=== PATIENT | female | born 1935 | race Caucasian/White ===

== ENCOUNTER 2020-02-25 01:38 | Emergency (ER) | payer MEDICARE, OTHER ==
[~2020-02-25] VITALS: Ht 154.9 cm; Wt 65.3 kg
--- OUTSIDE RECORDS SUMMARY | ~2020-02-25 | XMS | Encounter Summary ---
Demographics + + + | Address | [address]. | | | [place] [address] | + + + | Home Phone | | + + + | Preferred Language | Unknown | + + + | Marital Status | | + + + | Hindu Affiliation | Unknown | + + + | Race | White | + + + | Ethnic Group | Not or | + + + Author + + + | Author | [facility] | | | and [place] | + + + | Organization | [facility] | | | and [place] | + + + | Address | Unknown | + + + | Phone | Unavailable | + + + Support + + + + + | Name | Relationship | Address | Phone | + + + + + | Beba Martinez | ECON | NA | | | | | [place] | | + + + + + | Jody Fernandez | ECON | NA | | | | | [place] | | + + + + + Care Team Providers + +------+ + | Care Cost And Sales Record Supervisor Name | Role | Phone | + +------+ + | Koko Orantes MD | PCP | | + +------+ + Reason for Visit + + + | Reason | Comments | + + + | Follow-up | | + + + Encounter Details +--------+---------+ + + + | Date | Type | Department | Care Team | Description | +--------+---------+ + + + | 10/15/ | Office | [facility] | Lul Molina | Bradycardia (Primary | | 2018 | Visit | CARDIOLOGY [address] | MD Marcell[address] | Dx); Essential | | | | [place], | [address] [place] | hypertension; SOB | | | | [place] [address] | [place] [address] | (shortness of | | | | [phone] | [phone] | breath) on exertion | | | | | | | +--------+---------+ + + + Social History + +-------+ +--------+------+ | Tobacco Use | Types | Packs/Day | Years | Date | | | | | Used | | + +-------+ +--------+------+ | Never Smoker | | | | | + +-------+ +--------+------+ + +---+---+---+ | Smokeless Tobacco: | | | | | Never Used | | | | + +---+---+---+ + + +---------+ + | Alcohol Use | Drinks/Week | oz/Week | Comments | + + +---------+ + | Yes | | | 2 glasses wine | | | | | weekly | + + +---------+ + + + + | Sex Assigned at | Date Recorded | | | | + + + | Not on file | | + + + documented as of this encounter Last Filed Vital Signs + + + + + | Vital Sign | Reading | Time Taken | Comments | + + + + + | Blood Pressure | 138/82 | 10/15/2017 12:39 PM | | | | | PDT | | + + + + + | Pulse | 54 | 10/15/2017 12:39 PM | | | | | PDT | | + + + + + | Temperature | - | - | | + + + + + | Respiratory Rate | 16 | 10/15/2017 12:39 PM | | | | | PDT | | + + + + + | Oxygen Saturation | - | - | | + + + + + | Inhaled Oxygen | - | - | | | Concentration | | | | + + + + + | Weight | 68.7 kg (151 lb 7.3 | 10/15/2017 12:39 PM | | | | oz) | PDT | | + + + + + | Height | 157.5 cm (5' 2") | 10/15/2017 12:39 PM | | | | | PDT | | + + + + + | Body Mass Index | 27.7 | 10/15/2017 12:39 PM | | | | | PDT | | + + + + + documented in this encounter Progress Notes Lul Molina MD - 10/15/2017 1:00 PM PDTFormatting of this note might be differe nt from the original. Subjective: CARDIOLOGY OFFICE VISIT Date of Service: 10/15/17 Patient ID: Naomi Fernandez is a 82 y.o. female. PCP: Koko Orantes MD HPI Naomi Fernandez is a 82 y.o. female with a history of dyspnea on exertion and severe hypertens ion who presents for a follow-up visit. She has been doing well without any symptoms of russel st pain or exertional dyspnea and has been compliant with her medications. She believes roni t her blood pressure has been well-controlled. She has had no medical issues recently. She is in need of establishing with a new primary care provider as her current physician is mami alvarez. Her weight has been stable. She remains quite active and goes on one long daily wal k each morning with her dog. Pertinent historical clinical information: Previously she was recovering from the of her daughter from pulmonary complications a t age 51, and had returned from trip to [place] when she went to scatter her ashes. She prev iously had symptoms of feeling fatigued primarily with going upstairs as well as walking uph ill for quite some time, perhaps one year, but she states that he had significantly improved since her blood pressure has normalized. She denies any trouble with walking on level groun d and denies having chest pains per se, nor any orthopnea, PND, or lower extremity edema. MEDICAL, SURGICAL AND PERSONAL HISTORY Past Medical History: Diagnosis Date Bradycardia 04/02/2013 Holter Monitor 02/03/13. Depression 01/20/2013 Glaucoma 01/20/2013 Goiter 01/20/2013 Gout 01/20/2013 Hypertension 01/20/2013 Hypothyroidism 01/20/2013 Renal cyst 01/20/2013 SOB (shortness of breath) on exertion 01/20/2013 Past Surgical History: Procedure Laterality Date APPENDECTOMY CATARACT REMOVAL bilateral CHOLECYSTECTOMY HYSTERECTOMY JOINT REPLACEMENT 2011 right JOINT REPLACEMENT 08/2012 left rhinoplasty TONSILLECTOMY History reviewed. No pertinent family history. 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 amLODIPine (NORVASC) 10 MG tablet Take 1 tablet by mouth Daily. 90 tablet 3 Brinzolamide-Brimonidine (SIMBRINZA) 1-0.2 % SUSP Place 1 drop into the left eye 3 time s daily. carvedilol (COREG) 25 mg tablet Take 0.5 tablets by mouth 2 times daily. 90 tablet 3 levothyroxine (SYNTHROID, LEVOTHROID) 25 mcg tablet Take 25 mcg by mouth every morning (before breakfast). lisinopril (PRINIVIL, ZESTRIL) 20 mg tablet Take 1 tablet by mouth Daily. 30 tablet 5 pravastatin (PRAVACHOL) 40 MG tablet Take 1 tablet by mouth nightly. 30 tablet 5 travoprost (TRAVATAN Z) 0.004% ophthalmic solution 1 drop once a day at bedtime (Patien t taking differently: Place 1 drop into both eyes nightly.) No current facility-administered medications for this visit. Allergies Allergen Reactions Lisinopril Other (See Comments) COUGH Penicillins Rash Review of Systems I have reviewed the Review of Systems form dated today and scanned into the media tab. Objective: Physical Exam Constitutional: She is oriented to person, place, and time. She appears well-developed and well-nourished. HENT: Head: Normocephalic and atraumatic. Eyes: Pupils are equal, round, and reactive to light. Neck: Neck supple. No JVD present. No thyromegaly present. Cardiovascular: Regular rhythm, S1 normal, S2 normal, normal heart sounds, intact distal pu lses and normal pulses. Bradycardia present. PMI is not displaced. Exam reveals no S3, no S4 and no friction rub. No murmur heard. Pulses: Carotid pulses are 2+ on the right side, and 2+ on the left side. Radial pulses are 2+ on the right side, and 2+ on the left side. Pulmonary/Chest: Effort normal and breath sounds normal. No accessory muscle usage. No resp iratory distress. She exhibits no tenderness. Abdominal: Soft. Normal appearance and bowel sounds are normal. She exhibits no distension and no abdominal bruit. There is no hepatosplenomegaly. There is no tenderness. Mildly obese. Musculoskeletal: Normal range of motion. Neurological: She is alert and oriented to person, place, and time. Skin: Skin is warm and dry. No rash noted. Psychiatric: She has a normal mood and affect. Her behavior is normal. Vitals reviewed. BP 138/82 | Pulse 54 | Resp 16 | Ht 1.575 m (5' 2") | Wt 68.7 kg (151 lb 7.3 oz) | BMI 27.70 kg/m ECG: Reviewed by me today shows sinus bradycardia, rate 53, poor wave progression. LAB RESULTS: LIPID Lab Results Component Value Date TRIG 91 03/06/2012 HDL 55 03/06/2012 LDL 120 03/06/2012 CHOLHDL 3.0 04/03/2017 LDLEX 120 04/03/2017 HDLEX 69.2 04/03/2017 TRIGEX 98 04/03/2017 CHOLEX 209 04/03/2017 CHEMISTRY Lab Results Component Value Date GLU 117 02/03/2013 NA 140 02/03/2013 K 3.8 02/03/2013 CL 105 02/03/2013 CO2 26 02/03/2013 CALCIUM 9.9 02/03/2013 ALKPHOS 66 02/03/2013 AST 13 03/06/2012 ALT 10 03/06/2012 BILITOT 0.9 02/03/2013 BUN 27 02/03/2013 EGFREX 49 04/03/2017 CREEX 1.08 04/03/2017 HEMATOLOGY Lab Results Component Value Date HGBEX 14.2 04/03/2017 BNP No results found for: BNP A1C 04/03/2017: 6.0 Cardiovascular diagnostics below reviewed by me with the patient today: Holter monitor February 2013 interpreted and reviewed by me showed underlying sinus rhythm , frequent PVCs and rare PACs without any runs, frequent periods of bradycardia throughout t he day, with many pauses, longest being 2.4 seconds without symptoms. Nuclear stress perfusion study March 2013 interpreted and reviewed by me showed no signif icant ischemia. Echocardiogram March 2013 interpreted and reviewed by me showed LVEF 50%, mild concentric LVH, mild MR/TR, mild pulmonary systolic hypertension, small pericardial effusion. Assessment: 1. Dyspnea on exertion - stable - patient's previous workup did not suggest any significant underlying ischemia , cardiomyopathy, or heart failure. Significant findings thus far obser nimco to have been evidence of poorly controlled hypertension and frequent bradycardia. Patien t symptoms have disappeared since her blood pressure has been better controlled. 2. Bradycardia - stable - patient states that she has been on high-dose carvedilol therapy for many years and denies any significant obvious lightheadedness or history of syncope. Giv en borderline pauses and frequent bradycardia, we down titrated carvedilol, to 12.5 mg b.i.d . Ultimately, patient may benefit from complete discontinuation. For now, there is no indica tion for device therapy. 3. Hypertension - improved - in the past, patient had been quite hypertensive with blood pr essure readings in the range of 208/100. Systolics in the 170s and 180s had been common in h er case. This appears to have resolved with additional therapy with amlodipine and down titr ation of her beta case regimen given baseline bradycardia. Given evidence of borderline diabetes, patient would benefit from empiric therapy with an BRAD inhibitor or ARB. We will increase her lisinopril to 20 mg daily for better blood pressure control. For now I have as ked her to hold her therapy with Cardura, and to periodically check her vitals and record th em for future review. 4. Risk factor reduction - given evidence of borderline diabetes, patient would benefit fr om empiric statin therapy, and target LDL of 70 mg/dL ideally. Previously, we have started her on pravastatin at 20 mg daily which will benefit from up titration to 40 mg daily. Plan: 1. No further cardiovascular diagnostics for now. 2. Continue to monitor blood pressure readings. 3. Follow-up visit within 4-6 months. 4. Continue current medical regimen. 5. Check chemistry panel, fasting lipid profile, and LFTs periodically. Portions of this report were transcribed using voice recognition software. Every effort wa s made to ensure accuracy; however, inadvertent computerized recreation coordinator errors may be pre sent. I appreciate the opportunity to help with the management of this patient. Yessica Molina MD PhD [facility] documented in t his encounter Plan of Treatment +--------+---------+ + + + | Date | Type | Specialty | Care Team | Description | +--------+---------+ + + + | 03/03/ | Office | Otolaryngology | Naveed Adams MD | | | 2020 | Visit | | [address] | | | | | | [address] [place] [place] | | | | | | [id number] | | | | | | | | +--------+---------+ + + + documented as of this encounter Procedures + +--------+ + + + | Procedure Name | Priori | Date/Time | Associated Diagnosis | Comments | | | ty | | | | + +--------+ + + + | ECG 12 LEAD | Routin | 10/15/2017 | Bradycardia | Results for this | | | e | 7:43 PM | Essential | procedure are in the | | | | PDT | hypertension SOB | results section. | | | | | (shortness of | | | | | | breath) on exertion | | + +--------+ + + + | EXTERNAL LAB: BUN | Routin | 04/03/2017 | | Results for this | | | e | | | procedure are in the | | | | | | results section. | + +--------+ + + + | EXTERNAL LAB: | Routin | 04/03/2017 | | Results for this | | GLUCOSE | e | | | procedure are in the | | | | | | results section. | + +--------+ + + + | EXTERNAL LAB: ALT | Routin | 04/03/2017 | | Results for this | | | e | | | procedure are in the | | | | | | results section. | + +--------+ + + + | EXTERNAL LAB: AST | Routin | 04/03/2017 | | Results for this | | | e | | | procedure are in the | | | | | | results section. | + +--------+ + + + | EXTERNAL LAB: | Routin | 04/03/2017 | | Results for this | | ALKALINE PHOSPHATASE | e | | | procedure are in the | | | | | | results section. | + +--------+ + + + | EXTERNAL LAB: | Routin | 04/03/2017 | | Results for this | | BILIRUBIN, TOTAL | e | | | procedure are in the | | | | | | results section. | + +--------+ + + + | EXTERNAL LAB: | Routin | 04/03/2017 | | Results for this | | ALBUMIN | e | | | procedure are in the | | | | | | results section. | + +--------+ + + + | EXTERNAL LAB: | Routin | 04/03/2017 | | Results for this | | PROTEIN, TOTAL | e | | | procedure are in the | | | | | | results section. | + +--------+ + + + | EXTERNAL LAB: | Routin | 04/03/2017 | | Results for this | | CALCIUM | e | | | procedure are in the | | | | | | results section. | + +--------+ + + + | EXTERNAL LAB: CARBON | Routin | 04/03/2017 | | Results for this | | DIOXIDE | e | | | procedure are in the | | | | | | results section. | + +--------+ + + + | EXTERNAL LAB: | Routin | 04/03/2017 | | Results for this | | CHLORIDE | e | | | procedure are in the | | | | | | results section. | + +--------+ + + + | EXTERNAL LAB: | Routin | 04/03/2017 | | Results for this | | POTASSIUM | e | | | procedure are in the | | | | | | results section. | + +--------+ + + + | EXTERNAL LAB: SODIUM | Routin | 04/03/2017 | | Results for this | | | e | | | procedure are in the | | | | | | results section. | + +--------+ + + + | EXTERNAL LAB: CBC | Routin | 04/03/2017 | | Results for this | | | e | | | procedure are in the | | | | | | results section. | + +--------+ + + + | EXTERNAL LAB: TSH | Routin | 04/03/2017 | | Results for this | | | e | | | procedure are in the | | | | | | results section. | + +--------+ + + + | EXTERNAL LAB: | Routin | 04/03/2017 | | Results for this | | TRIGLYCERIDES | e | | | procedure are in the | | | | | | results section. | + +--------+ + + + | EXTERNAL LAB: | Routin | 04/03/2017 | | Results for this | | CHOLESTEROL, HDL | e | | | procedure are in the | | | | | | results section. | + +--------+ + + + | EXTERNAL LAB: | Routin | 04/03/2017 | | Results for this | | CHOLESTEROL, TOTAL | e | | | procedure are in the | | | | | | results section. | + +--------+ + + + | EXTERNAL LAB: | Routin | 04/03/2017 | | Results for this | | CHOLESTEROL, LDL | e | | | procedure are in the | | | | | | results section. | + +--------+ + + + | EXTERNAL LAB: EGFR | Routin | 04/03/2017 | | Results for this | | | e | | | procedure are in the | | | | | | results section. | + +--------+ + + + | EXTERNAL LAB: | Routin | 04/03/2017 | | Results for this | | CREATININE | e | | | procedure are in the | | | | | | results section. | + +--------+ + + + | LABS - EXTERNAL SCAN | | 04/03/2017 | | Results for this | | | | 12:00 AM | | procedure are in the | | | | PDT | | results section. | + +--------+ + + + | LIPID PANEL | Routin | 04/03/2017 | | Results for this | | | e | | | procedure are in the | | | | | | results section. | + +--------+ + + + | CBC WITH | Routin | 04/03/2017 | | Results for this | | DIFFERENTIAL | e | | | procedure are in the | | | | | | results section. | + +--------+ + + + | HEMOGLOBIN A1C | Routin | 04/03/2017 | | Results for this | | | e | | | procedure are in the | | | | | | results section. | + +--------+ + + + | COMPREHENSIVE | Routin | 04/03/2017 | | Results for this | | METABOLIC PANEL | e | | | procedure are in the | | | | | | results section. | + +--------+ + + + documented in this encounter Results ECG 12 lead (10/15/2017 7:43 PM PDT) + + + + + + | Component | Value | Ref Range | Performed | Pathologist | | | | | At | Signature | + + + + + + | VENTRICULAR | 53 | BPM | [facility] | | | RATE EKG | | | | | + + + + + + | ATRIAL RATE | 53 | BPM | [facility] | | + + + + + + | P-R | 166 | ms | [facility] | | | INTERVAL | | | | | + + + + + + | QRS | 102 | ms | [facility] | | | DURATION | | | | | + + + + + + | Q-T | 460 | ms | [facility] | | | INTERVAL | | | | | + + + + + + | Q-T | 431 | ms | [facility] | | | INTERVAL | | | | | | (CORRECTED) | | | | | + + + + + + | P WAVE AXIS | 55 | degrees | [facility] | | + + + + + + | QRS AXIS | -7 | degrees | [facility] | | + + + + + + | T AXIS | 37 | degrees | [facility] | | + + + + + + | INTERPRETAT | Sinus | | [facility] | | | ION TEXT | bradycardiaPossible | | | | | | Anterior infarct , age | | | | | | undeterminedAbnormal | | | | | | ECGNo previous ECGs | | | | | | availableConfirmed by | | | | | | MARCELLO MOLINA MD | | | | | | ([id number]) on 10/15/2017 | | | | | | 7:43:39 PM | | | | + + + + + + + + | Specimen | + + | | + + + + + | Narrative | Performed At | + + + | | | + + + + +---------+ + + | Performing | Address | City/State/Zipcode | Phone Number | | Organization | | | | + +---------+ + + | [facility] | | | | + +---------+ + + LABS - EXTERNAL SCAN (04/03/2017 12:00 AM PDT) + + + | Narrative | Performed At | + + + | Ordered by an | | | unspecified provider. | | + + + External Lab: CBC (04/03/2017) + +-------+ + + + | Component | Value | Ref Range | Performed | Pathologist | | | | | At | Signature | + +-------+ + + + | WBC, | 7.9 | | | | | External | | | | | + +-------+ + + + | HGB, | 14.2 | | | | | External | | | | | + +-------+ + + + | HCT, | 42.4 | | | | | External | | | | | + +-------+ + + + | PLT, | 217 | | | | | External | | | | | + +-------+ + + + | Neutrophils | 60 | | | | | %, | | | | | | External | | | | | + +-------+ + + + | Lymphocytes | 25.9 | | | | | %, | | | | | | External | | | | | + +-------+ + + + | Monocytes | 7.4 | | | | | %, External | | | | | + +-------+ + + + | Eosinophils | 5.9 | | | | | %, | | | | | | External | | | | | + +-------+ + + + | RBC, | 4.52 | | | | | External | | | | | + +-------+ + + + | MCV, | 94 | | | | | External | | | | | + +-------+ + + + | RDW, | 14.3 | | | | | External | | | | | + +-------+ + + + CBC with Differential (04/03/2017) + +-------+ + + + | Component | Value | Ref Range | Performed | Pathologist | | | | | At | Signature | + +-------+ + + + | MCH | 31.0 | 26.0 - 33.0 pg | | | + +-------+ + + + | MCHC | 33.0 | 30.0 - 36.0 % | | | + +-------+ + + + | % Basophils | 0.8 | 1.0 % | | | + +-------+ + + + + + | Specimen | + + | Blood | + + Comprehensive Metabolic Panel (04/03/2017) + +-------+ + + + | Component | Value | Ref Range | Performed | Pathologist | | | | | At | Signature | + +-------+ + + + | Anion Gap | 17 | mmol/L | | | + +-------+ + + + | Bun/Creatin | 24.1 | | | | | ine | | | | | + +-------+ + + + | Globulin | 2.4 | | | | + +-------+ + + + | Albumin/Felipa | 1.9 | | | | | bulin Ratio | | | | | + +-------+ + + + + + | Specimen | + + | Blood | + + Lipid Panel (04/03/2017) + +-------+ + + + | Component | Value | Ref Range | Performed | Pathologist | | | | | At | Signature | + +-------+ + + + | VLDL | 20 | | | | | Cholesterol | | | | | | Edvin | | | | | + +-------+ + + + | Chol/HDL | 3.0 | | | | | Ratio | | | | | + +-------+ + + + | Non HDL | 140 | | | | | Chol. | | | | | | (LDL+VLDL) | | | | | + +-------+ + + + + + | Specimen | + + | Blood | + + Hemoglobin A1C (04/03/2017) + +-------+ + + + | Component | Value | Ref Range | Performed | Pathologist | | | | | At | Signature | + +-------+ + + + | Hemoglobin | 6.0 | % | | | | A1c | | | | | + +-------+ + + + + + | Specimen | + + | Blood | + + External Lab: BUN (04/03/2017) + +--------+ + + + | Component | Value | Ref Range | Performed | Pathologist | | | | | At | Signature | + +--------+ + + + | BUN, | 26 (A) | 23 | | | | External | | | | | + +--------+ + + + External Lab: Glucose (04/03/2017) + +---------+ + + + | Component | Value | Ref Range | Performed | Pathologist | | | | | At | Signature | + +---------+ + + + | Glucose, | 112 (A) | 10 | | | | External | | | | | + +---------+ + + + External Lab: ALT (04/03/2017) + +-------+ + + + | Component | Value | Ref Range | Performed | Pathologist | | | | | At | Signature | + +-------+ + + + | ALT, | 16 | | | | | External | | | | | + +-------+ + + + External Lab: AST (04/03/2017) + +-------+ + + + | Component | Value | Ref Range | Performed | Pathologist | | | | | At | Signature | + +-------+ + + + | AST, | 16 | | | | | External | | | | | + +-------+ + + + External Lab: Alkaline Phosphatase (04/03/2017) + +-------+ + + + | Component | Value | Ref Range | Performed | Pathologist | | | | | At | Signature | + +-------+ + + + | ALP, | 62 | | | | | External | | | | | + +-------+ + + + External Lab: Bilirubin, Total (04/03/2017) + +-------+ + + + | Component | Value | Ref Range | Performed | Pathologist | | | | | At | Signature | + +-------+ + + + | Bilirubin, | 1.0 | | | | | Total, | | | | | | External | | | | | + +-------+ + + + External Lab: Albumin (04/03/2017) + +-------+ + + + | Component | Value | Ref Range | Performed | Pathologist | | | | | At | Signature | + +-------+ + + + | Albumin, | 4.5 | | | | | External | | | | | + +-------+ + + + External Lab: Protein, Total (04/03/2017) + +-------+ + + + | Component | Value | Ref Range | Performed | Pathologist | | | | | At | Signature | + +-------+ + + + | Protein, | 6.9 | | | | | Total, | | | | | | External | | | | | + +-------+ + + + External Lab: Calcium (04/03/2017) + + + + + + | Component | Value | Ref Range | Performed | Pathologist | | | | | At | Signature | + + + + + + | Calcium, | 10.6 (A) | 10.2 | | | | External | | | | | + + + + + + External Lab: Carbon Dioxide (04/03/2017) + +-------+ + + + | Component | Value | Ref Range | Performed | Pathologist | | | | | At | Signature | + +-------+ + + + | Carbon | 25 | | | | | Dioxide, | | | | | | External | | | | | + +-------+ + + + External Lab: Chloride (04/03/2017) + +-------+ + + + | Component | Value | Ref Range | Performed | Pathologist | | | | | At | Signature | + +-------+ + + + | Chloride, | 103 | | | | | External | | | | | + +-------+ + + + External Lab: Potassium (04/03/2017) + +-------+ + + + | Component | Value | Ref Range | Performed | Pathologist | | | | | At | Signature | + +-------+ + + + | Potassium, | 4.2 | | | | | External | | | | | + +-------+ + + + External Lab: Sodium (04/03/2017) + +-------+ + + + | Component | Value | Ref Range | Performed | Pathologist | | | | | At | Signature | + +-------+ + + + | Sodium, | 141 | | | | | External | | | | | + +-------+ + + + External Lab: TSH (04/03/2017) + +-------+ + + + | Component | Value | Ref Range | Performed | Pathologist | | | | | At | Signature | + +-------+ + + + | TSH, | 1.28 | | | | | External | | | | | + +-------+ + + + + + | Specimen | + + | Blood | + + External Lab: Triglycerides (04/03/2017) + +-------+ + + + | Component | Value | Ref Range | Performed | Pathologist | | | | | At | Signature | + +-------+ + + + | Triglycerid | 98 | | | | | es, | | | | | | External | | | | | + +-------+ + + + + + | Specimen | + + | Blood | + + External Lab: Cholesterol, HDL (04/03/2017) + +-------+ + + + | Component | Value | Ref Range | Performed | Pathologist | | | | | At | Signature | + +-------+ + + + | HDL | 69.2 | mg/dl | | | | Cholesterol | | | | | | , External | | | | | + +-------+ + + + + + | Specimen | + + | Blood | + + External Lab: Cholesterol, Total (04/03/2017) + +-------+ + + + | Component | Value | Ref Range | Performed | Pathologist | | | | | At | Signature | + +-------+ + + + | Cholesterol | 209 | mg/dl | | | | , Total, | | | | | | External | | | | | + +-------+ + + + + + | Specimen | + + | Blood | + + External Lab: Cholesterol, LDL (04/03/2017) + +-------+ + + + | Component | Value | Ref Range | Performed | Pathologist | | | | | At | Signature | + +-------+ + + + | LDL | 120 | | | | | Cholesterol | | | | | | , Direct, | | | | | | External | | | | | + +-------+ + + + + + | Specimen | + + | Blood | + + External Lab: eGFR (04/03/2017) + +-------+ + + + | Component | Value | Ref Range | Performed | Pathologist | | | | | At | Signature | + +-------+ + + + | eGFR, | 49 | | | | | External | | | | | + +-------+ + + + + + | Specimen | + + | Blood | + + External Lab: Creatinine (04/03/2017) + +-------+ + + + | Component | Value | Ref Range | Performed | Pathologist | | | | | At | Signature | + +-------+ + + + | Creatinine, | 1.08 | | | | | External | | | | | + +-------+ + + + + + | Specimen | + + | Blood | + + documented in this encounter Visit Diagnoses + + | Diagnosis | + + | Bradycardia - Primary Other specified cardiac dysrhythmias | + + | Essential hypertension Unspecified essential hypertension | + + | SOB (shortness of breath) on exertion Shortness of breath | + + documented in this encounter
--- OUTSIDE RECORDS SUMMARY | ~2020-02-25 | XMS | Encounter Summary ---
Demographics + + + | Address | [address]. | | | [place] [address] | + + + | Home Phone | | + + + | Preferred Language | Unknown | + + + | Marital Status | | + + + | Taoism Affiliation | Unknown | + + + | Race | White | + + + | Ethnic Group | Not or | + + + Author + + + | Author | [facility] | | | and [place] | + + + | Organization | [facility] | | | and [place] | + + + | Address | Unknown | + + + | Phone | Unavailable | + + + Support + + + + + | Name | Relationship | Address | Phone | + + + + + | Beba Martinez | ECON | NA | | | | | [place] | | + + + + + | Jody Fernandez | ECON | NA | | | | | [place] | | + + + + + Care Team Providers + +------+ + | Care Automotive Welder Name | Role | Phone | + +------+ + | Koko Orantes MD | PCP | | + +------+ + Reason for Visit + +--------+ + | Reason | Onset | Comments | | | Date | | + +--------+ + | Appointment | 06/02/ | Follow up | | | 2014 | | + +--------+ + Encounter Details +--------+ + + + + | Date | Type | Department | Care Team | Description | +--------+ + + + + | 06/02/ | Telephone | [facility] | Lul Arcos | Appointment (Follow | | 2014 | | [facility] [address] | MD [address] | up) | | | | [place], | [address] [place] | | | | | [place] [address] | [place] [address] | | | | | [phone] | [phone] | | | | | | | | +--------+ + + + + Social History + +-------+ [...] + + documented as of this encounter Miscellaneous Notes Telephone Encounter - Caity Almonte - 06/02/2015 1:57 PM PSTPatient called back to steve davalos. elephone Encounter - Caity Almonte - 06/02/2015 1:55 PM PSTLVM asking patient to call back to schedule follow up with Dr. Arcos. documen audra in this encounter Plan of Treatment +--------+---------+ + + + | Date | Type | Specialty | Care Team | Description | +--------+---------+ + + + | 03/03/ | Office | Otolaryngology | Naveed Adams MD | | | 2020 | Visit | | [address] | | | | | | [address] [place] | | | | | | [address] | | | | | | | | +--------+---------+ + + + documented as of this encounter Visit Diagnoses Not on filedocumented in this encounter"
--- OUTSIDE RECORDS SUMMARY | ~2020-02-25 | XMS | Encounter Summary ---
Demographics + + + | Address | [address]. | | | [place] [address] | + + + | Home Phone | | + + + | Preferred Language | Unknown | + + + | Marital Status | | + + + | Congregational Affiliation | Unknown | + + + | Race | White | + + + | Ethnic Group | Not or | + + + Author + + + | Author | [facility] | | | and [place] | + + + | Organization | [facility] | | | and [...] Team Providers + +------+ + | Care Signal Maintainer Name | Role | Phone | + +------+ + PCP | Unavailable | + +------+ + Reason for Visit +--------+--------+ + | Reason | Onset | Comments | | | Date | | +--------+--------+ + | Other | 12/14/ | records and scripts sent | | | 2014 | | +--------+--------+ + Encounter Details +--------+ + + + + | Date | Type | Department | Care Team | Description | +--------+ + + + + | 12/14/ | Telephone | [facility] | Lul Arcos | Other (records and | | 2014 | | [place] [address] | MD [address]cell[address] | scripts sent) | | | | [place], | [address] [place] | | | | | [place] [address] | [place] [address] | | | | | [phone] | [phone] | | | | | | | [...] this encounter Miscellaneous Notes Telephone Encounter - Selena Barth RN - 12/14/2014 1:12 PM PDTOffice note from 5 along with script for Lisinopril and Pravastatin faxed to [facility] at [phone] ........... ................................Selena Barth RN on 12/14/14 at 13:12 documented in this encounter Plan of Treatment +--------+---------+ + + + | Date | Type | Specialty | Care Team | Description | +--------+---------+ + + + | 03/03/ | Office | Otolaryngology | Naveed Adams MD | | | 2020 | Visit | | [address] | | | | | | [address] [place] | | | | | | [address] | | | | | | | | +--------+---------+ + + + documented as of this encounter Visit Diagnoses Not on filedocumented in this encounter"
--- OUTSIDE RECORDS SUMMARY | ~2020-02-25 | XMS | Encounter Summary ---
Demographics + + + | Address | [address]. | | | [place] [address] | + + + | Home Phone | | + + + | Preferred Language | Unknown | + + + | Marital Status | | + + + | Adventist Affiliation | Unknown | + + + | Race | White | + + + | Ethnic Group | Not or | + + + Author + + + | Author | [facility] | | | and [place] | + + + | Organization | [facility] | | | and [...] Team Providers + +------+ + | Care Leaflet Or Newspaper Deliverer Name | Role | Phone | + +------+ + | Peter Phillips MD | PCP | | + +------+ + Reason for Referral Evaluate & Treat (Routine) + + + + + + + | Status | Reason | Specialty | Diagnoses / | Referred By | Referred To | | | | | Procedures | Contact | Contact | + + + + + + + | Authorized | Specialty | Otolaryngolog | Diagnoses | Alan, | [facility] | | | Services | y | Lip cyst | Peter Mukherjee MD | Otolaryngolog | | | Required | | | [address] | | [address] [place] | [address] | | | | | | [place], [place] | [address] [place] | | | | | | [address] | [place] | | | | | | Phone: | [phone] | | | | | | [phone] | Phone: | | | | | | Fax: | [phone] | | | | | | [phone] | Fax: | | | | | | | [phone] | + + + + + + + Reason for Visit + +--------+ + | Reason | Onset | Comments | | | Date | | + +--------+ + | Referral (Follow up) | 05/06/ | | | | 2018 | | + +--------+ + Encounter Details +--------+ + + + + | Date | Type | Department | Care Team | Description | +--------+ + + + + | 05/06/ | Telephone | [facility] | Peter Phillips, | Referral (Follow up) | | 2019 | | [facility] [place] | [address] | | | | | [address] | [place] | | | | | [place] | [address] | | | | | [address] | | | | | | [phone] | | | +--------+ + + + [...] + + +---------+ + | Yes | 4 Glasses of wine | 4.0 | | + + +---------+ + + + + | Sex Assigned at | Date Recorded | | | | + + + | Not on file | | + + + documented as of this encounter Miscellaneous Notes Telephone Encounter - Marj Hernandez LPN - 05/06/2019 1:42 PM PSTReceived a referral fo yaneliw up request for patient to see Dr. Adams on 05/25/19 Referral done docume nted in this encounter Plan of Treatment +--------+---------+ + + + | Date | Type | Specialty | Care Team | Description | +--------+---------+ + + + | 03/03/ | Office | Otolaryngology | Naveed Adams MD | | | 2020 | Visit | | [address] | | | | | | [address] [place] | | | | | | [address] | | | | | | | | +--------+---------+ + + + + + +--------+ + + | Name | Type | Priori | Associated Diagnoses | Order Schedule | | | | ty | | | + + +--------+ + + | * [facility] [place] | Outpatient | Routin | Lip cyst | Ordered: 05/06/2019 | | Otolaryngology - AMB | Referral | e | | | | Referral | | | | | + + +--------+ + + documented as of this encounter Visit Diagnoses + + | Diagnosis | + + | 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
--- OUTSIDE RECORDS SUMMARY | ~2020-02-25 | XMS | Encounter Summary ---
Demographics + + + | Address | [address] | | | [place] [address] | + + + | Home Phone | | + + + | Preferred Language | Unknown | + + + | Marital Status | | + + + | Anabaptism Affiliation | Unknown | + + + | Race | White | + + + | Ethnic Group | Not or | + + + Author + + + | Author | [facility] | | | and [place] | + + + | Organization | [facility] | | [...] Team Providers + +------+ + | Care Inserter Promotional Item Name | Role | Phone | + +------+ + | Peter Phillips MD | PCP | | + +------+ + Reason for Visit + + + | Reason | Comments | + + + | Hypertension | | + + + | Establish Care | | + + + Encounter Details +--------+---------+ + + + | Date | Type | Department | Care Team | Description | +--------+---------+ + + + | 11/15/ | Office | [facility] | Peter Phillips, | Essential | | 2018 | Visit | [facility] | [address] | hypertension | | | | [address] | [place] | (Primary Dx); | | | | [place] | [address] | Bradycardia; | | | | [address] | | Hypothyroidism, | | | | [phone] | | unspecified type; | | | | | | Hyperlipidemia, | | | | | | unspecified | | | | | | hyperlipidemia type; | | | | | | Chronic gout of | | | | | | left ankle, | | | | | | unspecified cause | +--------+---------+ + + + Social History [...] + + +---------+ + | Yes | 5 Glasses of wine | 5.0 | 2 glasses wine | | | [...] + + + | Blood Pressure | 132/80 | 11/15/2017 1:11 PM | | | | | PDT | | + + + + + | Pulse | 49 | 11/15/2017 1:11 PM | | | | | PDT | | + + + + + | Temperature | 36.2 C (97.1 F) | 11/15/2017 1:11 PM | | | | | PDT | | + + + + + | Respiratory Rate | 16 | 11/15/2017 1:11 PM | | | | | PDT | | + + + + + | Oxygen Saturation | 94% | 11/15/2017 1:11 PM | | | | | PDT | | + + + + + | Inhaled Oxygen | - | - | | | Concentration | | | | + + + + + | Weight | 69 kg (152 lb 1.9 | 11/15/2017 1:11 PM | | | | oz) | PDT | | + + + + + | Height | 151.3 cm (4' 11.55") | 11/15/2017 1:11 PM | | | | | PDT | | + + + + + | Body Mass Index | 30.16 | 11/15/2017 1:11 PM | | | | | PDT | | + + + + + documented in this encounter Patient Instructions Patient Instructions Peter Phillips MD - 11/15/2017 1:30 PM PDTKeep up the great work! Your blood pressure is terrific. We want it less than 150/90 with a stretch goal of less t richmond 140/90. Your heart rate is a little low (typically we want it above 60). So DECREASE your carvedil ol to 6.125 mg twice daily. These pills have been ordered. Please stop by the lab for blood work before your next appointment in April. You need t o be fasting - nothing to eat or drink other than water or black coffee for 10 hours. No al cohol for 24 hours. The labs at the [facility] ([address]) and at our [facility] ([address]) are open 7 AM Saturday-Saturday. The [facility] lab is also open 8 AM-4 PM on Saturdays (use Urgent Care entrance). I hope you have an amazing trip! documented in this encounter Progress Notes Peter Phillips MD - 11/15/2017 1:30 PM PDTFormatting of this note might be different fr om the original. Subjective: Patient ID: Naomi Fernandez is a 82 y.o. female who is here today for Hypertension and Establi sh Care. Previously saw Dr Stewart in [place] who retired. HPI She is going to [facility] in March to visit her daughter. She has already met with [facility] in [facility] and has vaccines UTD. She will get malaria prophylaxis, traveler's bárbara rrhea abx from them. Her daughter designs handbags and helps the community build homes. He r son-in-law is a professor at the university there. She used to have MENDIOLA. She states this has resolved. She does see Dr Arcos annually for c heck-ups. She has not had a gout flare in years. Last was in left ankle. She refuse pneumonia, flu, tetanus vaccines. Patient's medications, allergies, past medical, surgical, social and family histories were obtained and reviewed as appropriate. Current Outpatient Prescriptions on File Prior to Visit Medication Sig Dispense Refill allopurinol (ZYLOPRIM) 300 mg tablet Take 300 mg by mouth daily. amLODIPine (NORVASC) 10 MG tablet Take 1 tablet by mouth Daily. 90 tablet 3 Brinzolamide-Brimonidine (SIMBRINZA) 1-0.2 % SUSP Place 1 drop into the left eye 3 time s daily. carvedilol (COREG) 25 mg tablet Take 0.5 tablets by mouth 2 times daily. 90 tablet 3 levothyroxine (SYNTHROID, LEVOTHROID) 25 mcg tablet Take 25 mcg by mouth every morning (before breakfast). pravastatin (PRAVACHOL) 40 MG tablet Take 1 tablet by mouth nightly. 30 tablet 5 travoprost (TRAVATAN Z) 0.004% ophthalmic solution 1 drop once a day at bedtime (Patien t taking differently: Place 1 drop into both eyes nightly.) Review of Systems Constitutional: Negative for fever and unexpected weight change. HENT: Negative for hearing loss and trouble swallowing. Eyes: Negative for visual disturbance. Respiratory: Negative for cough and shortness of breath. Cardiovascular: Negative for chest pain and palpitations. Gastrointestinal: Negative for abdominal pain and blood in stool. Endocrine: Negative for cold intolerance and heat intolerance. Genitourinary: Negative for dysuria. Skin: Negative for rash. Neurological: Negative for light-headedness and headaches. Psychiatric/Behavioral: Negative for dysphoric mood. Objective: BP 132/80 | Pulse (!) 49 | Temp 36.2 C (97.1 F) (Temporal) | Resp 16 | Ht 1.512 m ( 4' 11.55") | Wt 69 kg (152 lb 1.9 oz) | SpO2 94% | BMI 30.16 kg/m Physical Exam Constitutional: Very pleasant, well developed, NAD Neck: Neck supple. No thyromegaly present. Cardiovascular: Normal rate, regular rhythm, normal heart sounds and intact distal pulses. Exam reveals no gallop and no friction rub. No murmur heard. Pulmonary/Chest: Breath sounds normal. No respiratory distress. She has no wheezes. She has no rales. Musculoskeletal: She exhibits no edema. Lymphadenopathy: She has no cervical adenopathy. Psychiatric: She has a normal mood and affect. Her behavior is normal. Thought content norm al. Assessment & Plan: 1. Essential hypertension: Well controlled - Decrease carvedilol - amLODIPine (NORVASC) 10 MG tablet; Take 1 tablet by mouth Daily. To lower blood pressure Dispense: 90 tablet; Refill: 3 - carvedilol (COREG) 6.25 mg tablet; Take 1 tablet by mouth 2 times daily. To lower blood p ressure and heart rate Dispense: 180 tablet; Refill: 1 2. Bradycardia: Likely iatrogenic - Decrease carvedilol 3. Hypothyroidism, unspecified type - levothyroxine (SYNTHROID) 25 mcg tablet; Take 1 tablet by mouth every morning (before elizabeth akfast). For low thyroid Dispense: 90 tablet; Refill: 3 - TSH; Future 4. Hyperlipidemia, unspecified hyperlipidemia type: Primary prevention - pravastatin (PRAVACHOL) 40 MG tablet; Take 1 tablet by mouth nightly. To lower cholestero l and reduce risk of heart attack Dispense: 90 tablet; Refill: 3 5. Chronic gout of left ankle, unspecified cause - allopurinol (ZYLOPRIM) 300 mg tablet; Take 1 tablet by mouth Daily. To prevent gout flare Dispense: 90 tablet; Refill: 1 - indomethacin (INDOCIN) 25 mg capsule; Take 1 capsule by mouth Daily as needed for Gout Pa in. Dispense: 60 capsule; Refill: 2. Use sparingly - Uric Acid; Future Return in about 5 months (around 04/17/2018). Francisco Phillips MD hapman, ELEAZAR Conrad - 11/15/2017 1:30 PM PDTPatient is here to establish care. Needs all her meds refilled.El ectronically signed by Marj Hernandez LPN at 11/15/2017 2:01 PM PDTdocumented in this enc ounter Plan of Treatment +--------+---------+ + + + | Date | Type | Specialty | Care Team | Description | +--------+---------+ + + + | 03/03/ | Office | Otolaryngology | Naveed Adams MD | | | 2020 | Visit | | [address] | | | | | | [address] [place] | | | | | | [id number] | | | | | | | | +--------+---------+ + + + documented as of this encounter Results TSH (04/28/2018 12:40 PM PST) + +-------+ + + + | Component | Value | Ref Range | Performed | Pathologist | | | | | At | Signature | + +-------+ + + + | TSH | 0.61 | 0.36 - 3.74 | [facility] | | | | | uIU/mL | [facility] | | [facility] | | | | | [facility] | | + +-------+ + + + + + | Specimen | + + | Blood | + + + + + + + | Performing | Address | City/State/Zipcode | Phone Number | | Organization | | | | + + + + + | [facility] | [address] | [place] | [phone] | | [facility] | | [address] | | | [facility] | | | | + + + + + Uric Acid (04/28/2018 12:40 PM PST) + +-------+ + + + | Component | Value | Ref Range | Performed | Pathologist | | | | | At | Signature | + +-------+ + + + | Uric Acid | 3.6 | 2.6 - 6.2 mg/dL | [facility] | | | | | | [facility] | | [facility] | | | | | [facility] | | | | | | [facility] | | + +-------+ + + + + + | Specimen | + + | Blood | + + + + + + + | Performing | Address | City/State/Zipcode | Phone Number | | Organization | | | | + + + + + | [facility] | [address] | [place] | [phone] | | [facility] | | [address] | | | [facility] | | | | + + + + + documented in this encounter Visit Diagnoses + + | Diagnosis | + + | Essential hypertension - Primary Unspecified essential hypertension | + + | Bradycardia Other specified cardiac dysrhythmias | + + | Hypothyroidism, unspecified type | + + | Hyperlipidemia, unspecified hyperlipidemia type | + + | Chronic gout of left ankle, unspecified cause | + + documented in this encounter
--- OUTSIDE RECORDS SUMMARY | ~2020-02-25 | XMS | Encounter Summary ---
Demographics + + + | Address | [address]. | | | [place] [address] | + + + | Home Phone | | + + + | Preferred Language | Unknown | + + + | Marital Status | | + + + | Pentecostalism Affiliation | Unknown | + + + | Race | White | + + + | Ethnic Group | Not or | + + + Author + + + | Author | [facility] | | | and [place] | + + + | Organization | [facility] | | [...] Team Providers + +------+ + | Care Electrician Deck Name | Role | Phone | + +------+ + | Koko Orantes MD | PCP | | + +------+ + Encounter Details +--------+ + + + + | Date | Type | Department | Care Team | Description | +--------+ + + + + | 05/09/ | Orders Only | [facility] [place] | Selena Barth, | | | 2014 | | CARDIOLOGY [address] | RN | | | | | [place], | | | | | | [place] [address] | | | | | | [phone] | | | +--------+ + + + [...] + + documented as of this encounter Plan of Treatment +--------+---------+ + + + | Date | Type | Specialty | Care Team | Description | +--------+---------+ + + + | 03/03/ | Office | Otolaryngology | Naveed Adams MD | | | 2019 | Visit | | [address] | | | | | | [address] [place] | | | | | | [address] | | | | | | | | +--------+---------+ + + + documented as of this encounter Visit Diagnoses Not on filedocumented in this encounter"
--- OUTSIDE RECORDS SUMMARY | ~2020-02-25 | XMS | Encounter Summary ---
Demographics + + + | Address | [address]. | | | [place] [address] | + + + | Home Phone | | + + + | Preferred Language | Unknown | + + + | Marital Status | | + + + | Congregation Affiliation | Unknown | + + + | Race | White | + + + | Ethnic Group | Not or | + + + Author + + + | Author | [facility] | | | and [place] | + + + | Organization | [facility] | | [...] Team Providers + +------+ + | Care Recordist Chief Name | Role | Phone | + +------+ + | Peter Phillips MD | PCP | | + +------+ + Reason for Visit + +--------+ + | Reason | Onset | Comments | | | Date | | + +--------+ + | Medication Refill | 07/10/ | | | | 2019 | | + +--------+ + Encounter Details +--------+--------+ + + + | Date | Type | Department | Care Team | Description | +--------+--------+ + + + | 07/10/ | Refill | [facility] | Peter Phillips, | Medication Refill | | 2019 | | [facility] [place] | [address] | | | | | [address] | [place] | | | | | [place] | [id number] | | | | | [address] | | | | | | [phone] | | | +--------+--------+ + + + Social History + +-------+ [...] this encounter Miscellaneous Notes Telephone Encounter - Liban Myers ARNP - 07/10/2018 12:43 PM PSTIf she is having increa se in gout flares, she may need to return to clinic to discuss adjusting medication to preve nt flares. Small supply sent to pharmacy. Recommend minimal use of this medication.Electronically sign ed by JOANNE Woodward at 07/10/2018 12:45 PM PSTTelephone Encounter - Aislinn Verduzco RN - 07/10/2018 11:43 AM PSTLast visit: 04/28/2018 Next visit: 10/28/2018 Pended for you ele phone Encounter - Sultana Morales - 07/10/2018 11:16 AM PSTMedication: Indocin Strength: 25 mg Directions: As needed Quantity: 60 Pharmacy: [facility]/Fax: fax Date of Last Refill: 11/15/17 Date of Last Visit: 04/28/18 Date of Next Visit: 10/28/18 documented in this encount er Plan of Treatment +--------+---------+ + + + | Date | Type | Specialty | Care Team | Description | +--------+---------+ + + + | 03/03/ | Office | Otolaryngology | Naveed Adams MD | | | 2020 | Visit | | [address] | | | | | | [address] [place] | | | | | | [address] | | | | | | | | +--------+---------+ + + + documented as of this encounter Visit Diagnoses + + | Diagnosis | + + | Chronic gout of left ankle, unspecified cause | + + documented in this encounter"
--- OUTSIDE RECORDS SUMMARY | ~2020-02-25 | XMS | Encounter Summary ---
Demographics + + + | Address | [address]. | | | [place] [address] | + + + | Home Phone | | + + + | Preferred Language | Unknown | + + + | Marital Status | | + + + | Confucianism Affiliation | Unknown | + + + | Race | White | + + + | Ethnic Group | Not or | + + + Author + + + | Author | [facility] | | | and [place] | + + + | Organization | [facility] | | | and [...] Team Providers + +------+ + | Care Insurance Loss Adjuster Name | Role | Phone | + +------+ + | Koko Orantes MD | PCP | | + +------+ + Encounter Details +--------+ + + + + | Date | Type | Department | Care Team | Description | +--------+ + + + + | 04/12/ | Abstract | [facility] | Lul rAcos | | | 2015 | | CARDIOLOGY [address] | MD [address] | | | | | [place], | [address] [place] | | | | | [place] [address] | [place] [address] | | | | | [phone] | [phone] | | | | | | | [...] | Visit | | [address] | | | | | | [address] [place] | | | | | | [address] | | | | | | | | +--------+---------+ + + + documented as of this encounter Procedures + +--------+ + + + | Procedure Name | Priori | Date/Time | Associated Diagnosis | Comments | | | ty | | | | + +--------+ + + + | EXTERNAL LAB: NEIL | Routin | 04/02/2016 | | Results for this | | | e | | | procedure are in the | | | | | | results section. | + +--------+ + + + | EXTERNAL LAB: | Routin | 04/02/2016 | | Results for this | | GLUCOSE | e | | | procedure are in the | | | | | | results section. | + +--------+ + + + | EXTERNAL LAB: ALT | Routin | 04/02/2016 | | Results for this | | | e | | | procedure are in the | | | | | | results section. | + +--------+ + + + | EXTERNAL LAB: AST | Routin | 04/02/2016 | | Results for this | | | e | | | procedure are in the | | | | | | results section. | + +--------+ + + + | EXTERNAL LAB: | Routin | 04/02/2016 | | Results for this | | POTASSIUM | e | | | procedure are in the | | | | | | results section. | + +--------+ + + + | EXTERNAL LAB: SODIUM | Routin | 04/02/2016 | | Results for this | | | e | | | procedure are in the | | | | | | results section. | + +--------+ + + + | EXTERNAL LAB: CBC | Routin | 04/02/2016 | | Results for this | | | e | | | procedure are in the | | | | | | results section. | + +--------+ + + + | EXTERNAL LAB: TSH | Routin | 04/02/2016 | | Results for this | | | e | | | procedure are in the | | | | | | results section. | + +--------+ + + + | EXTERNAL LAB: | Routin | 04/02/2016 | | Results for this | | TRIGLYCERIDES | e | | | procedure are in the | | | | | | results section. | + +--------+ + + + | EXTERNAL LAB: | Routin | 04/02/2016 | | Results for this | | CHOLESTEROL, HDL | e | | | procedure are in the | | | | | | results section. | + +--------+ + + + | EXTERNAL LAB: | Routin | 04/02/2016 | | Results for this | | CHOLESTEROL, TOTAL | e | | | procedure are in the | | | | | | results section. | + +--------+ + + + | EXTERNAL LAB: | Routin | 04/02/2016 | | Results for this | | CHOLESTEROL, LDL | e | | | procedure are in the | | | | | | results section. | + +--------+ + + + | EXTERNAL LAB: | Routin | 04/02/2016 | | Results for this | | CREATININE | e | | | procedure are in the | | | | | | results section. | + +--------+ + + + documented in this encounter Results External Lab: BUN (04/02/2016) + +--------+ + + + | Component | Value | Ref Range | Performed | Pathologist | | | | | At | Signature | + +--------+ + + + | BUN, | 26 (A) | 6 - 23 | | | | External | | | | | + +--------+ + + + + + | Resulting Agency Comment | + + | [facility] | + + External Lab: Glucose (04/02/2016) + +---------+ + + + | Component | Value | Ref Range | Performed | Pathologist | | | | | At | Signature | + +---------+ + + + | Glucose, | 101 (A) | 70 - 100 | | | | External | | | | | + +---------+ + + + + + | Resulting Agency Comment | + + | [facility] | + + External Lab: ALT (04/02/2016) + +-------+ + + + | Component | Value | Ref Range | Performed | Pathologist | | | | | At | Signature | + +-------+ + + + | ALT, | 15 | | | | | External | | | | | + +-------+ + + + + + | Resulting Agency Comment | + + | [facility] | + + External Lab: AST (04/02/2016) + +-------+ + + + | Component | Value | Ref Range | Performed | Pathologist | | | | | At | Signature | + +-------+ + + + | AST, | 16 | | | | | External | | | | | + +-------+ + + + + + | Resulting Agency Comment | + + | [facility] | + + External Lab: Potassium (04/02/2016) + +-------+ + + + | Component | Value | Ref Range | Performed | Pathologist | | | | | At | Signature | + +-------+ + + + | Potassium, | 4.1 | | | | | External | | | | | + +-------+ + + + + + | Resulting Agency Comment | + + | [facility] | + + External Lab: Sodium (04/02/2016) + +-------+ + + + | Component | Value | Ref Range | Performed | Pathologist | | | | | At | Signature | + +-------+ + + + | Sodium, | 139 | | | | | External | | | | | + +-------+ + + + + + | Resulting Agency Comment | + + | [facility] | + + External Lab: CBC (04/02/2016) + +-------+ + + + | Component | Value | Ref Range | Performed | Pathologist | | | | | At | Signature | + +-------+ + + + | WBC, | 6.7 | | | | | External | | | | | + +-------+ + + + | HGB, | 14.1 | | | | | External | | | | | + +-------+ + + + | HCT, | 42.3 | | | | | External | | | | | + +-------+ + + + | PLT, | 203 | | | | | External | | | | | + +-------+ + + + | RBC, | 4.54 | | | | | External | | | | | + +-------+ + + + | MCV, | 93 | | | | | External | | | | | + +-------+ + + + | RDW, | 13.7 | | | | | External | | | | | + +-------+ + + + + + | Resulting Agency Comment | + + | [facility] | + + External Lab: ANTWAN (04/02/2016) + +-------+ + + + | Component | Value | Ref Range | Performed | Pathologist | | | | | At | Signature | + +-------+ + + + | TSH, | 0.343 | | | | | External | | | | | + +-------+ + + + + + | Specimen | + + | Blood specimen | | (specimen) | + + + + | Resulting Agency Comment | + + | [facility] | + + External Lab: Triglycerides (04/02/2016) + +-------+ + + + | Component | Value | Ref Range | Performed | Pathologist | | | | | At | Signature | + +-------+ + + + | Triglycerid | 80 | | | | | es, | | | | | | External | | | | | + +-------+ + + + + + | Specimen | + + | Blood specimen | | (specimen) | + + + + | Resulting Agency Comment | + + | [facility] | + + External Lab: Cholesterol, HDL (04/02/2016) + +-------+ + + + | Component | Value | Ref Range | Performed | Pathologist | | | | | At | Signature | + +-------+ + + + | HDL | 78.3 | mg/dl | | | | Cholesterol | | | | | | , External | | | | | + +-------+ + + + + + | Specimen | + + | Blood specimen | | (specimen) | + + + + | Resulting Agency Comment | + + | [facility] | + + External Lab: Cholesterol, Total (04/02/2016) + +-------+ + + + | Component | Value | Ref Range | Performed | Pathologist | | | | | At | Signature | + +-------+ + + + | Cholesterol | 177 | mg/dl | | | | , Total, | | | | | | External | | | | | + +-------+ + + + + + | Specimen | + + | Blood specimen | | (specimen) | + + + + | Resulting Agency Comment | + + | [facility] | + + External Lab: Cholesterol, LDL (04/02/2016) + +-------+ + + + | Component | Value | Ref Range | Performed | Pathologist | | | | | At | Signature | + +-------+ + + + | LDL | 83 | | | | | Cholesterol | | | | | | , Direct, | | | | | | External | | | | | + +-------+ + + + + + | Specimen | + + | Blood specimen | | (specimen) | + + + + | Resulting Agency Comment | + + | [facility] | + + External Lab: Creatinine (04/02/2016) + +-------+ + + + | Component | Value | Ref Range | Performed | Pathologist | | | | | At | Signature | + +-------+ + + + | Creatinine, | 1.09 | | | | | External | | | | | + +-------+ + + + + + | Specimen | + + | Blood specimen | | (specimen) | + + + + | Resulting Agency Comment | + + | [facility] | + + documented in this encounter Visit Diagnoses Not on filedocumented in this encounter"
--- OUTSIDE RECORDS SUMMARY | ~2020-02-25 | XMS | Encounter Summary ---
Demographics + + + | Address | [address]. | | | [place] [address] | + + + | Home Phone | | + + + | Preferred Language | Unknown | + + + | Marital Status | | + + + | Alevism Affiliation | Unknown | + + + | Race | White | + + + | Ethnic Group | Not or | + + + Author + + + | Author | [facility] | | | and [place] | + + + | Organization | [facility] | | [...] Team Providers + +------+ + | Care International Accountant Name | Role | Phone | + +------+ + | Peter Phillips MD | PCP | | + +------+ + Reason for Visit + +--------+ + | Reason | Onset | Comments | | | Date | | + +--------+ + | Medication Refill | 12/29/ | | | | 2019 | | + +--------+ + Encounter Details +--------+ + + + + | Date | Type | Department | Care Team | Description | +--------+ + + + + | 12/29/ | Telephone | [facility] | Peter Phillips, | Medication Refill | | 2020 | | [facility] [place] | [address] | | | | | [address] | [place] | | | | | [place] | [address] | | | | | [address] | | | | | | [phone] | | | +--------+ + + + [...] this encounter Miscellaneous Notes Telephone Encounter - Aislinn Verduzco RN - 12/30/2019 8:30 AM PDTRefill(s) has been se nt to requested pharmacy. elephone Encounter - Irish Kelley - 12/30/2019 8:13 AM PDTMedication: Amlodipine Strength: 10mg Directions: Daily Quantity: 90 Pharmacy:[facility] Date of Last Refill: 11/30/19 Date of Last Visit:11/30/19 Date of Next Visit: None documented in this encoun ter Plan of Treatment +--------+---------+ + + + | Date | Type | Specialty | Care Team | Description | +--------+---------+ + + + | 03/03/ | Office | Otolaryngology | Naveed Adams MD | | 2019 | Visit | | [address] | | | | | | [address] [place] | | | | | | [address] | | | | | | | | +--------+---------+ + + + documented as of this encounter Visit Diagnoses + + | Diagnosis | + + | Essential hypertension Unspecified essential hypertension | + + documented in this encounter"
--- OUTSIDE RECORDS SUMMARY | ~2020-02-25 | XMS | Encounter Summary ---
Demographics + + + | Address | [address]. | | | [place] [address] | + + + | Home Phone | | + + + | Preferred Language | Unknown | + + + | Marital Status | | + + + | Jew Affiliation | Unknown | + + + | Race | White | + + + | Ethnic Group | Not or | + + + Author + + + | Author | [facility] | | | and [place] | + + + | Organization | [facility] | | | [...] Team Providers + +------+ + | Care Kaitara Taraka Name | Role | Phone | + +------+ + | Peter Phillips MD | PCP | | + +------+ + Reason for Visit + + + | Reason | Comments | + + + | Follow-up, Office | suture removal | | Visit | | + + + Encounter Details +--------+---------+ + + + | Date | Type | Department | Care Team | Description | +--------+---------+ + + + | 06/18/ | Office | [facility] | Naveed Admas MD | Basal cell carcinoma | | 2019 | Visit | OTOLARYNGOLOGY [address] | [address] | (BCC) of skin of | | | | [address] | [address] [place] | lip (Primary Dx) | | | | [place] | [address] | | | | | [address] | | | | | | [phone] | | | +--------+---------+ + + + [...] + + + | Blood Pressure | 150/80 | 06/18/2018 12:57 PM | | | | | PST | | + + + + + | Pulse | 58 | 06/18/2018 12:57 PM | | | | | PST | | + + + + + | Temperature | - | - | | + + + + + | Respiratory Rate | - | - | | + + + + + | Oxygen Saturation | 96% | 06/18/2018 12:57 PM | | | | | PST | | + + + + + | Inhaled Oxygen | - | - | | | Concentration | | | | + + + + + | Weight | 66.9 kg (147 lb 7.8 | 06/18/2018 12:57 PM | | | | oz) | PST | | + + + + + | Height | 152.4 cm (5') | 06/18/2018 12:57 PM | | | | | PST | | + + + + + | Body Mass Index | 28.8 | 06/18/2018 12:57 PM | | | | | PST | | + + + + + documented in this encounter Progress Notes Naveed Adams MD - 06/18/2018 1:00 PM PSTPatient is postop removal of a lesion from the r ight lower lip and comes in for suture removal. The final path report was basal cell carcin angela. There is a question of it being at one margin. 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 Plan: Patient will be seen again in 6 months time to see if there is any evidence of recurr ent basal cell. documente d in this encounter Plan of Treatment +--------+---------+ [...] [place] | | | | | | [id number] | | | | | | | | +--------+---------+ + + + documented as of this encounter Visit Diagnoses + + | Diagnosis | + + | Basal cell carcinoma (BCC) of skin of lip - Primary | + + documented in this encounter"
--- OUTSIDE RECORDS SUMMARY | ~2020-02-25 | XMS | Encounter Summary ---
Demographics + + + | Address | [address]. | | | [place] [address] | + + + | Home Phone | | + + + | Preferred Language | Unknown | + + + | Marital Status | | + + + | Denominational Affiliation | Unknown | + + + | Race | White | + + + | Ethnic Group | Not or | + + + Author + + + | Author | [facility] | | | and [place] | + + + | Organization | [facility] | | | [...] Team Providers + +------+ + | Care Casket Upholsterer Name | Role | Phone | + +------+ + | Peter Phillips MD | PCP | | + +------+ + Reason for Visit + + + | Reason | Comments | + + + | Follow-up | mole on left arm-no pain,been there for a couple of months | + + + Evaluate & Treat (Routine) + + + + + + + | Status | Reason | Specialty | Diagnoses / | Referred By | Referred To | | | | | Procedures | Contact | Contact | + + + + + + + | Authorized | Specialty | Otolaryngolog | Diagnoses | Alan | [facility] | | | Services | y | Lip cyst | Peter Mukherjee MD | Otolaryngolog | | | Required | | | [address] | [address] [place] | [address] | | | | | | [place] | [address] [place] | | | | | | [address] | [place] | | | | | | Phone: | [phone] | | | | | | [phone] | Phone: | | | | | | Fax: | [phone] | | | | | | [phone] | Fax: | | | | | | | [phone] | + + + + + + + Encounter Details +--------+ + + + + | Date | Type | Department | Care Team | Description | +--------+ + + + + | 11/18/ | Off-Site | [facility] | Naveed Adams MD | Neoplasm of | | 2020 | Visit | OTOLARYNGOLOGY [address] | [address] | uncertain behavior | | | | [address] | [address] [place] | of skin (Primary Dx) | | | | [place] | [address] | | | | | [address] | | | | | | [phone] | | | +--------+ + + + [...] + + + | Blood Pressure | - | - | | + + + + + | Pulse | - | - | | + + + + + | Temperature | 36.6 C (97.8 F) | 11/19/2019 1:19 PM | | | | | PDT [...] + + + + | Weight | 64.4 kg (142 lb) | 11/19/2019 1:19 PM | | | | | PDT | | + + + + + | Height | 152.4 cm (5') | 11/19/2019 1:19 PM | | | | | PDT | | + + + + + | Body Mass Index | 27.73 | 11/19/2019 1:19 PM | | | | | PDT | | + + + + + documented in this encounter Progress Notes Naveed Adams MD - 11/19/2019 1:30 PM PDTPatient comes in with 2 lesions that she would l rtemayne to have removed. The one on her left upper arm developed a scab about 1 month ago and i t continues to peel and not heal. She indicates that that she does not pick at it but it do es not seem to heal. She also has a lesion that is increasing in size on her right forehead that she would like evaluated. She is not having any other ENT complaints. Examination: Patient has a elevated growth on the right forehead just above her right eyebr ow that is about 3 to 4 mm in size. The lesion on her left arm is about 6 to 7 mm in size a nd is suspicious being a cancer of the skin. No other lesions that need to be removed were noted. She does not have any mass or lesions in the neck area noted. Impression: Skin lesions x2 of uncertain diagnosis. Plan: Patient will be scheduled to have these removed in minor surgery and both will be sen t for path examination. Patient understands the procedure and desires to move forward and h ave them removed and this will be scheduled accordingly. documented in this encounter Plan of Treatment [...] [place] | | | | | | [id number] | | | | | | | | +--------+---------+ + + + documented as of this encounter Visit Diagnoses + + | Diagnosis | + + | Neoplasm of uncertain behavior of skin - Primary | + + documented in this encounter"
--- OUTSIDE RECORDS SUMMARY | ~2020-02-25 | XMS | Encounter Summary ---
Demographics + + + | Address | [address]. | | | [place] [address] | + + + | Home Phone | | + + + | Preferred Language | Unknown | + + + | Marital Status | | + + + | Temple Affiliation | Unknown | + + + | Race | White | + + + | Ethnic Group | Not or | + + + Author + + + | Author | [facility] | | | and [place] | + + + | Organization | [facility] | | | and [...] Team Providers + +------+ + | Care Solar Energy System Installer Name | Role | Phone | + +------+ + | Koko Orantes MD | PCP | | + +------+ + Reason for Visit +--------+--------+ + | Reason | Onset | Comments | | | Date | | +--------+--------+ + | LABS | 10/01/ | | | | 2018 | | +--------+--------+ + Encounter Details +--------+ + + + + | Date | Type | Department | Care Team | Description | +--------+ + + + + | 10/01/ | Telephone | [facility] | Lul Arcos | LABS | | 2017 | | [address] | MD Marcello [address] | | | | | [place], | [address] [place] | | | | | [place] [address] | [place] [address] | | | | | [phone] | [phone] | | | | | | | [...] Telephone Encounter - Selena Barth RN - 10/01/2017 2:26 PM PDTOrder done ............ ...............................Selena Barth RN on 10/01/17 at 14:26 elephone Encounter - Jazmyn Kamara Greaser And Oiler - 10/01/2017 1:39 PM PDTPatient scheduled for an appoi ntment on 10/15/2017 and is needing a fasting Lipid panel, LFT and CMP. Please order, thank you. Left VM for callback. 18 1:40 PM PDTdocumented in this encounter Plan of Treatment +--------+---------+ + + + | Date | Type | Specialty | Care Team | Description | +--------+---------+ + + + | 03/03/ | Office | Otolaryngology | Naveed Adams MD | | | 2019 | Visit | | [address] | | | | | | [address] [place] | | | | | | [address] | | | | | | | | +--------+---------+ + + + documented as of this encounter Results [facility] with Differential (04/28/2018 12:40 PM PST) + +-------+ + + + | Component | Value | Ref Range | Performed | Pathologist | | | | | At | Signature | + +-------+ + + + | White Blood | 7.9 | 4.0 - 11.0 K/uL | [facility] | | | Cells | | | [facility] | | [facility] | [facility] | | | | | | [facility] | | + +-------+ + + + | Red Blood | 4.60 | 3.70 - 5.20 | [facility] | | | Cells | | M/uL | [facility] | | [facility] | [facility] | | | | | | [facility] | | | | | | [facility] | | + +-------+ + + + | Hemoglobin | 14.3 | 11.5 - 16.0 | [facility] | | | | | g/dL | [facility] | | [facility] | | [facility] | | | | | | [facility] | | | | | | [facility] | | + +-------+ + + + | Hematocrit | 42.9 | 34.0 - 47.0 % | [facility] | | | | | | [facility] | [facility] | [facility] | | | | | | [facility] | | | | | | [facility] | | + +-------+ + + + | MCV | 93.3 | 83.0 - 101.0 fL | [facility] | | | | | | [facility] | [facility] | | | | | | [facility] | | | | | | [facility] | | + +-------+ + + + | MCH | 31.1 | 28.0 - 35.0 pg | [facility] | | | | | | [facility] | | [facility] | [facility] | | | | | | [facility] | | | | | | [facility] | | + +-------+ + + + | MCHC | 33.3 | 32.0 - 36.0 | [facility] | | | | | g/dL | [facility] | | [facility] | [facility] | | | | | | [facility] | | | | | | [facility] | | + +-------+ + + + | RDW-CV | 12.9 | <15.0 % | [facility] | | | | | | [facility] | | [facility] | [facility] | | | | | | [facility] | | | | | | [facility] | | + +-------+ + + + | RDW-SD | 44.5 | 35.1 - 46.3 fL | [facility] | | | | | | [facility] | [facility] | | | | | [facility] | | | | | | [facility] | | + +-------+ + + + | Platelet | 255 | 140 - 440 K/uL | [facility] | | | Count | | | [facility] | | [facility] | [facility] | | | | | | [facility] | | | | | | [facility] | | + +-------+ + + + | MPV | 11.3 | 6.5 - 12.4 fL | [facility] | | | | | | [facility] | | [facility] | [facility] | | | | | | [facility] | | | | | | [facility] | | + +-------+ + + + | % | 57.7 | 45.0 - 82.0 % | [facility] | | | Neutrophils | | | [facility] | | | | | [facility] | | | | | | [facility] | | | | | | [facility] | | + +-------+ + + + | % | 29.8 | 20.0 - 45.0 % | [facility] | | | Lymphocytes | | | [facility] | | | | | [facility] | | | | | | [facility] | | | | | | [facility] | | + +-------+ + + + | % Monocytes | 8.1 | 4.0 - 12.0 % | [facility] | | | | | | [facility] | | | | | [facility] | | | | | | [facility] | | | | | | [facility] | | + +-------+ + + + | % | 3.7 | 0.0 - 5.0 % | [facility] | | | Eosinophils | | | [facility] | | | | | [facility] | | | | | | [facility] | | | | | | [facility] | | + +-------+ + + + | % Basophils | 0.3 | 0.0 - 1.0 % | [facility] | | | | | | [facility] | | | | | [facility] | | | | | | [facility] | | | | | | [facility] | | + +-------+ + + + | % Immature | 0.4 | 0.0 - 0.4 % | [facility] | | | Granulocyte | | | [facility] | | | s | | | [facility] | | | | | | [facility] | | | | | | LAB[facility]ORY | | + +-------+ + + + | Absolute | 4.58 | 1.80 - 8.50 | [facility] | | | Neutrophils | | K/uL | [facility] | | [facility] | | [facility] | | | | | | [facility] | | | | | | [facility] | | + +-------+ + + + | Absolute | 2.36 | 0.60 - 3.20 | [facility] | | | Lymphocytes | | K/uL | [facility] | | | | | [facility] | | | | | | [facility] | | | | | | [facility] | | + +-------+ + + + | Absolute | 0.64 | 0.00 - 1.00 | [facility] | | | Monocytes | | K/uL | [facility] | | | | | [facility] | | | | | | [facility] | | | | | | [facility] | | + +-------+ + + + | Absolute | 0.29 | 0.00 - 0.40 | [facility] | | | Eosinophils | | K/uL | [facility] | | | | | [facility] | | | | | | [facility] | | | | | | [facility] | | + +-------+ + + + | Absolute | 0.02 | 0.00 - 0.10 | [facility] | | | Basophils | | K/uL | [facility] | | | | | [facility] | | | | | | [facility] | | | | | | [facility] | | + +-------+ + + + | Absolute | 0.03 | 0.00 - 0.03 | [facility] | | | Immature | | K/uL | [facility] | | | Granulocyte | | | MEDICAL | | | s | | | PARK | | | | | | LABORATORY | | + +-------+ + + + + + | Specimen | + + | Blood | + + + + + + + | Performing | Address | City/State/Zipcode | Phone Number | | Organization | | | | + + + + + | [facility] | [address] | [place] | [phone] | | [facility] | | [address] | | | [facility] | | | | + + + + + Comprehensive Metabolic Panel (04/28/2018 12:40 PM PST) + + + + + + | Component | Value | Ref Range | Performed | Pathologist | | | | | At | Signature | + + + + + + | Na | 142 | 136 - 145 | [facility] | | | | | mmol/L | [facility] | | | | | [facility] | | | | | | [facility] | | | | | | [facility] | | + + + + + + | K | 3.5 | 3.5 - 5.1 | [facility] | | | | | mmol/L | [facility] | | | | | [facility] | | | | | | [facility] | | | | | | [facility] | | + + + + + + | Cl | 105 | 98 - 107 mmol/L | [facility] | | | | | | [facility] | | | | | [facility] | | | | | | [facility] | | | | | | [facility] | | + + + + + + | CO2 | 30 | 21 - 32 mmol/L | [facility] | | | | | | [facility] | | | [facility] | [facility] | | | | | | [facility] | | | | | | [facility] | | + + + + + + | Anion Gap | 7 | 2 - 16 mmol/L | [facility] | | | | | | [facility] | | | | | [facility] | | | | | | [facility] | | | | | | [facility] | | + + + + + + | Glucose | 129 (H) | 74 - 106 mg/dL | [facility] | | | | | | [facility] | | [facility] | [facility] | | | | | | [facility] | | | | | | [facility] | | + + + + + + | BUN | 18 | 7 - 18 mg/dL | [facility] | | | | | | [facility] | | | | | [facility] | | | | | | [facility] | | | | | | [facility] | | + + + + + + | Creatinine | 1.02 | 0.55 - 1.02 | [facility] | | | | | mg/dL | [facility] | | | | | [facility] | | | | | | [facility] | | | | | | [facility] | | + + + + + + | eGFR, | 52 (L)Comment: | >=60 | [facility] | | | non- | GLOMERULAR FILTRATION | mL/min/1.73m2 | [facility] | | | [place] | RATE,ESTIMATED | | MEDICAL | | | | mL/min/1.22r7Ozng than | | PARK | | | | 60 Chronic kidney | | LABORATORY | | | | disease,if found over a | | | | | | 3-month period.Less than | | | | | | 15 Kidney failureFor | | | | | | | | | | | | Americans,multiply the | | | | | | calculated GFR by 1.21. | | | | | | | | | | + + + + + + | Calcium | 10.1 | 8.5 - 10.1 | [facility] | | | | | mg/dL | [facility] | | | | | [facility] | | | | | | [facility] | | | | | | [facility] | | + + + + + + | Albumin | 3.7 | 3.4 - 5.0 g/dL | [facility] | | | | | | [facility] | | | | | | [facility] | | | | | | [facility] | | | | | | [facility] | | + + + + + + | Bilirubin | 0.9 | 0.2 - 1.0 mg/dL | [facility] | | | Total | | | [facility] | | | | | [facility] | | | | | | [facility] | | | | | | [facility] | | + + + + + + | Total | 7.7 | 6.4 - 8.2 g/dL | [facility] | | | Protein | | | [facility] | | | | | | [facility] | | | | | | [facility] | | | | | | LAB[facility] | | + + + + + + | AST | 20 | 15 - 37 U/L | [facility] | | | | | | [facility] | | | | | [facility] | | | | | | [facility] | | | | | | [facility] | | + + + + + + | ALT | 27 | 14 - 59 U/L | [facility] | | | | | | [facility] | | | | | | [facility] | | | | | | [facility] | | | | | | LAB[facility]AT[facility] | | + + + + + + | Alkaline | 82 | 46 - 116 U/L | [facility] | | | Phosphatase | | | [facility] | | | | | | [facility] | | | | | | [facility] | | | | | | [facility] | | + + + + + + | Globulin | 4.0 (H) | 2.1 - 3.8 g/dL | [facility] | | | | | | [facility] | | | | | [facility] | | | | | | [facility] | | | | | | [facility] | | + + + + + + | Albumin/Felipa | 0.9 | 0.8 - 2.0 | [facility] | | | bulin Ratio | | | [facility] | | | | | | [facility] | | | | | | [facility] | | | | | | [facility] | | + + + + + + | BUN/Creatin | 17.6 | | [facility] | | | ine Ratio | | | [facility] | | | | | | [facility] | | | | | | [facility] | | | | | | LAB[facility]ORY | | + + + + + + + + | Specimen | + + | Blood | + + + + + + + | Performing | Address | City/State/Zipcode | Phone Number | | Organization | | | | + + + + + | [facility] | [address] | [place] | [phone] | | [facility] | | [address] | | | [facility] | | | | + + + + + Lipid Panel (04/28/2018 12:40 PM PST) + + + + + + | Component | Value | Ref Range | Performed | Pathologist | | | | | At | Signature | + + + + + + | Triglycerid | 131 | 30 - 150 mg/dL | [facility] | | | es | | | [facility] | | | | | | [facility] | | | | | | [facility] | | | | | | [facility] | | + + + + + + | Cholesterol | 251 (H)Comment: | 150 - 200 mg/dL | [facility] | | | | CHOLESTEROL may be | | [facility] | | | | adversely affected by 1+ | | MEDICAL | | | | bilirubin. | | [facility] | | | | | | LABORATORY | | + + + + + + | HDL | 71 (H) | 40 - 60 mg/dL | [facility] | | | | | | [facility] | | | | | | [facility] | | | | | | [facility] | | | | | | [facility]ORY | | + + + + + + | Chol/HDL | 3.5 | | [facility] | | | Ratio | | | [facility] | | | | | | [facility] | | | | | | [facility] | | | | | | LAB[facility]ATORY | | + + + + + + | LDL, | 154 (H) | <130 mg/dL | [facility] | | | Calculated | | | [facility] | | | | | | [facility] | | | | | | [facility] | | | | | | LAB[facility]ATORY | | + + + + + + + + | Specimen | + + | Blood | + + + + + + + | Performing | Address | City/State/Zipcode | Phone Number | | Organization | | | | + + + + + | [facility] | [address] [place] | [place] | [phone] | | [facility] | | [address] | | | [facility] | | | | + + + + + documented in this encounter Visit Diagnoses + + | Diagnosis | + + | Bradycardia - Primary Other specified cardiac dysrhythmias | + + | Essential hypertension Unspecified essential hypertension | + + | SOB (shortness of breath) on exertion Shortness of breath | + + documented in this encounter"
--- OUTSIDE RECORDS SUMMARY | ~2020-02-25 | XMS | Encounter Summary ---
Demographics + + + | Address | [address]. | | | [place] [address] | + + + | Home Phone | | + + + | Preferred Language | Unknown | + + + | Marital Status | | + + + | Faith Affiliation | Unknown | + + + | Race | White | + + + | Ethnic Group | Not or | + + + Author + + + | Author | [facility] | | | and [place] | + + + | Organization | [facility] | | [...] Team Providers + +------+ + | Care Custom Tailor Name | Role | Phone | + +------+ + | Koko Orantes MD | PCP | | + +------+ + Reason for Visit + +--------+ + | Reason | Onset | Comments | | | Date | | + +--------+ + | Lab Order | 09/01/ | | | | 2015 | | + +--------+ + Encounter Details +--------+ + + + + | Date | Type | Department | Care Team | Description | +--------+ + + + + | 09/01/ | Telephone | [facility] | Lul Arcos | Lab Order | | 2015 | | [address] | MD Marcello [address] | | | | | [place], | [address] [place] | | | | | [place] [address] | [place] [address] | | | | | [phone] | [phone] | | | | | | | [...] this encounter Miscellaneous Notes Telephone Encounter - Jyoti Stevenson - 09/02/2015 10:13 AM PDTDuring call to confirm alvaro ent's Dr. Arcos appointment on 09-05-15, patient states that she is at [facility] in [facility], [place] but they do not have any lab orders. Advised patient that I would fax lab orders. Faxed the following orders to [facility] [place] at fax number [phone]: Lipid Panel Hepatic Function Panel Basic Metabolic Panel doc umented in this encounter Plan of Treatment +--------+---------+ [...]
--- OUTSIDE RECORDS SUMMARY | ~2020-02-25 | XMS | Encounter Summary ---
Demographics + + + | Address | [address]. | | | [place] [address] | + + + | Home Phone | | + + + | Preferred Language | Unknown | + + + | Marital Status | | + + + | Baptist Affiliation | Unknown | + + + | Race | White | + + + | Ethnic Group | Not or | + + + Author + + + | Author | [facility] | | | and [place] | + + + | Organization | [facility] | | | [...] Team Providers + +------+ + | Care Aircraft De Icer Installer Name | Role | Phone | + +------+ + | Koko Orantes MD | PCP | | + +------+ + Encounter Details +--------+ + + + + | Date | Type | Department | Care Team | Description | +--------+ + + + + | 03/01/ | Orders Only | [facility] [place] | Selena Barth, | | | 2014 | | CARDIOLOGY [address] | RN | | | | | [place], | | | | | | [place] [address] | | | | | | [phone] | | | +--------+ + + + [...] [place] | | | | | | [id number] | | | | | | | | +--------+---------+ + + + documented as of this encounter Visit Diagnoses Not on filedocumented in this encounter"
--- OUTSIDE RECORDS SUMMARY | ~2020-02-25 | XMS | Encounter Summary ---
Demographics + + + | Address | [address]. | | | [place] [address] | + + + | Home Phone | | + + + | Preferred Language | Unknown | + + + | Marital Status | | + + + | Congregation Affiliation | Unknown | + + + | Race | White | + + + | Ethnic Group | Not or | + + + Author + + + | Author | [facility] | | | and [place] | + + + | Organization | [facility] | | | and [place] | + + + | Address | Unknown | + + + | Phone | Unavailable | + + + Support + + + + + | Name | Relationship | Address | Phone | + + + + + | Bbea Martinez | ECON | NA | | | | | [place] | | + + + + + | Jody Fernandez | ECON | NA | | | | | [place] | | + + + + + Care Team Providers + +------+ + | Care Switchboard Wire Worker Helper Name | Role | Phone | + +------+ + PCP | Unavailable | + +------+ + Encounter Details +--------+ + + + + | Date | Type | Department | Care Team | Description | +--------+ + + + + | 02/13/ | Abstract | [place] [facility] | DATA [facility]IGRATION [facility]OTT[facility] | | | 2011 | | Conversion Location | SR | | | | | [address] [facility] | | | | | | [place], [place] | | | | | | [address] | | | | | | [phone] | | | +--------+ + + + + Social History + +-------+ +--------+------+ | Tobacco Use | Types | Packs/Day | Years | Date | | | | | Used | | + +-------+ +--------+------+ | Never Assessed | | | | | + +-------+ +--------+------+ + + + | Sex Assigned at | Date Recorded | | | | + + + | Not on file | | + + + documented as of this encounter Last Filed Vital Signs + + + + + | Vital Sign | Reading | Time Taken | Comments | + + + + + | Blood Pressure | 158/82 | 09/10/2011 12:00 AM | | | | | PDT | [...] + + + + | Weight | 64 kg (141 lb) | 09/10/2011 12:00 AM | | | | | PDT | | + + + + + | Height | 157.5 cm (5' 2") | 09/10/2011 12:00 AM | | | | | PDT | | + + + + + | Body Mass Index | 25.79 | 09/10/2011 12:00 AM | | | | | PDT | | + + + + + documented in this encounter Plan of Treatment [...] [place] | | | | | | [id number] | | | | | | | | +--------+---------+ + + + documented as of this encounter Procedures + +--------+ + + + | Procedure Name | Priori | Date/Time | Associated Diagnosis | Comments | | | ty | | | | + +--------+ + + + | ENDOSCOPY, COLON, | Routin | 09/12/2011 | | Results for this | | DIAGNOSTIC | e | 12:00 AM | | procedure are in the | | | | PDT | | results section. | + +--------+ + + + documented in this encounter Results ENDOSCOPY, COLON, DIAGNOSTIC (09/12/2011 12:00 AM PDT) + + | Specimen | + + | | + + + + + | Narrative | Performed At | + + + | | | + + + documented in this encounter Visit Diagnoses Not on filedocumented in this encounter
--- OUTSIDE RECORDS SUMMARY | ~2020-02-25 | XMS | Encounter Summary ---
Demographics + + + | Address | [address]. | | | [place] [address] | + + + | Home Phone | | + + + | Preferred Language | Unknown | + + + | Marital Status | | + + + | Denominational Affiliation | Unknown | + + + | Race | White | + + + | Ethnic Group | Not or | + + + Author + + + | Author | [facility] | | | and [place] | + + + | Organization | [facility] | | | and [...] Team Providers + +------+ + | Care Hedis Registered Nurse Rn Name | Role | Phone | + +------+ + | Peter Phillips MD | PCP | | + +------+ + Reason for Visit + + + | Reason | Comments | + + + | New Patient | cyst on lip | + + + Evaluate & Treat (Routine) +--------+ + + + + + | Status | Reason | Specialty | Diagnoses / | Referred By | Referred To | | | | | Procedures | Contact | Contact | +--------+ + + + + + | Closed | Specialty | Otolaryngolog | Diagnoses | Alan, | [facility] | | | Services | y | Lip cyst | Peter Mukherjee MD | Otolaryngolog | | | Required | | | [address] | [address] | [address] [place] | [address] | | | | | | [place] | [address] [place] | | | | | | [address] | [place] | | | | | | Phone: | [address] | | | | | | [phone] | Phone: | | | | | | Fax: | [phone] | | | | | | [phone] | Fax: | | | | | | | [phone] | +--------+ + + + + + Encounter Details +--------+---------+ + + + | Date | Type | Department | Care Team | Description | +--------+---------+ + + + | 05/21/ | Office | [facility] [place] | Peter Phillips, | Neoplasm of | | 2018 | Visit | OTOLARYNGOLOGY [address] | MD [address] | uncertain behavior | | | | [address] | [place] | of skin (Primary Dx) | | | | [place], [place] | [address] | | | | | [address] | | | | | | [phone] | Naveed Adams MD | | | | | | [address] | | | | | | [place] | | | | | | [address] | | | | | | | [...] + + + + | Pulse | 50 | 05/21/2018 11:03 AM | | | | | PST | | + + + + + | Temperature | - | - | | + + + + + | Respiratory Rate | 14 | 05/21/2018 11:03 AM | | | | | PST | | + + + + + | Oxygen Saturation | 96% | 05/21/2018 11:03 AM | | | | | PST | | + + + + + | Inhaled Oxygen | - | - | | | Concentration | | | | + + + + + | Weight | 66 kg (145 lb 8.1 | 05/21/2018 11:03 AM | | | | oz) | PST | | + + + + + | Height | 151.1 cm (4' 11.5") | 05/21/2018 11:03 AM | | | | | PST | | + + + + + | Body Mass Index | 28.9 | 05/21/2018 11:03 AM | | | | | PST | | + + + + + documented in this encounter Progress Notes Naveed Adams MD - 05/21/2018 11:30 AM PSTPatient has a growth on the lower lip on the rig ht-hand side that has continued to enlarge over the last year. She comes in because it alwa ys feels a bit irritated and she desires to have it removed. She is not having any other EN T complaints at the current time. No difficulty with swallowing and no change in her vocal function. Examination: Patient is an alert 82-year-old female patient who is communicating well in he r voice quality is good. Skin of the face nose and ears shows that there is a growth that a ppears to be fairly good size cystic lesion on the outside of her lip on the right-hand side . It's in the 1 cm size. In the oral cavity no mass or lesions are noted. Mass seen in th e oropharynx and posteropharyngeal wall is smooth. Tongue and soft palate are smooth the mo ves symmetrically. Is no mass or lymphadenopathy noted. Thyroid area was smooth and trache a was midline. She moves her neck well without any pain or discomfort noted. Nasal passage s no obstruction mass or lesion noted. In the ear canals are open and clean and drums were clear. Impression: Right lower lip lesion of uncertain diagnosis. Plan: Patient be scheduled have this removed in minor surgery and sent for path examination . The procedure was described well to the patient and she desires to have it removed and is will be scheduled accordingly. 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
--- OUTSIDE RECORDS SUMMARY | ~2020-02-25 | XMS | Encounter Summary ---
Demographics + + + | Address | [address] | | | [place] [address] | + + + | Home Phone | | + + + | Preferred Language | Unknown | + + + | Marital Status | | + + + | Moravian Affiliation | Unknown | + + + | Race | White | + + + | Ethnic Group | Not or | + + + Author + + + | Author | [facility] | | | and [place] | + + + | Organization | [facility] | | | [...] Team Providers + +------+ + | Care Derrick Operator Name | Role | Phone | + +------+ + PCP | Unavailable | + +------+ + Encounter Details +--------+ + + + + | Date | Type | Department | Care Team | Description | +--------+ + + + + | 02/03/ | Hospital | [facility] | Jass Molinaehr | | | 2012 | Encounter | MED CTR GENERIC OP | MD Marcello [address] | | | | | CONV DEPT [address] [place] | | | | | [place], | [place] [address] | | | | | [place] [address] | [phone] | | | | | [phone] | | | +--------+ + + + [...] + + documented as of this encounter Medications at Time of Discharge + + + +---------+ + + | Medication | Sig | Dispensed | Refills | Start | End Date | | | | | | Date | | + + + +---------+ + + | travoprost | 1 drop once a day at | | 0 | 02/15/20 | | | (TRAVATAN Z) 0.004% | bedtime | | | 12 | | | ophthalmic solution | | | | | | + + + +---------+ + + | brimonidine | 2 times daily. NO | | 0 | 02/15/20 | | | (ALPHAGAN P) 0.1% | LONGER TAKING. | | | 12 | 6 | | SOLN | REMOVED PER VERBAL | | | | | | | ORDER OF DR MOLINA. | | | | | + + + +---------+ + + | brimonidine | 1 drop once a day at | | 0 | 02/15/20 | | | (ALPHAGAN P) 0.1% | bedtime | | | 12 | 4 | | SOLN | | | | | | + + + +---------+ + + | carvedilol (COREG) | Take 25 mg by mouth | | 0 | 02/15/20 | | | 25 mg tablet | 2 times daily. 06/04 | | | 12 | 4 | | | tablet twice daily | | | | | + + + +---------+ + + | carvedilol (COREG) | Take 25 mg by mouth | | 0 | 02/15/20 | | | 25 mg tablet | 2 times daily. | | | 12 | 4 | + + + +---------+ + + | doxazosin | Take 4 mg by mouth | | 0 | 02/15/20 | | | (CARDURA) 4 mg | nightly. | | | 12 | 4 | | tablet | | | | | | + + + +---------+ + + | levothyroxine | Take 50 mcg by mouth | | 0 | | | | (SYNTHROID, | every morning | | | | 5 | | LEVOTHROID) 50 mcg | (before breakfast). | | | | | | tablet | | | | | | + + + +---------+ + + | | [ PATIENT NOT TAKING | | 0 | 02/15/20 | | | triamterene-hydrochl | ] | | | 12 | 4 | | orothiazide | | | | | | | (DYAZIDE) 37.5-25 MG | | | | | | | per capsule | | | | | | + + + +---------+ + + | | 1/2 tablet by mouth | | 0 | 02/15/20 | | | triamterene-hydrochl | once a day | | | 12 | 4 | | orothiazide | | | | | | | (DYAZIDE) 37.5-25 MG | | | | | | | per capsule | | | | | | + + + +---------+ + + documented as of this encounter [...]
--- OUTSIDE RECORDS SUMMARY | ~2020-02-25 | XMS | Encounter Summary ---
Demographics + + + | Address | [address] | | | [place] [address] | + + + | Home Phone | | + + + | Preferred Language | Unknown | + + + | Marital Status | | + + + | Taoist Affiliation | Unknown | + + + | Race | White | + + + | Ethnic Group | Not or | + + + Author + + + | Author | [facility] | | | and [place] | + + + | Organization | [facility] | | [...] Team Providers + +------+ + | Care Blueprint Reproducer Name | Role | Phone | + +------+ + | Peter Phillips MD | PCP | | + +------+ + Encounter Details +--------+ + + + + | Date | Type | Department | Care Team | Description | +--------+ + + + + | 04/30/ | Orders Only | [facility] | Peter Phillips, | Chronic gout of left | | 2018 | | [facility] | [address] | ankle, unspecified | | | | [address] | [place], [place] | cause | | | | [place], [place] | [address] | | | | | [address] | | | | | | [phone] | | | +--------+ + + + [...] [place] | | | | | | [id number] | | | | | | | | +--------+---------+ + + + documented as of this encounter Visit Diagnoses + + | Diagnosis | + + | Chronic gout of left ankle, unspecified cause | + + documented in this encounter"
--- OUTSIDE RECORDS SUMMARY | ~2020-02-25 | XMS | Encounter Summary ---
Demographics + + + | Address | [address] | | | [place] [address] | + + + | Home Phone | | + + + | Preferred Language | Unknown | + + + | Marital Status | | + + + | Orthodoxy Affiliation | Unknown | + + + | Race | White | + + + | Ethnic Group | Not or | + + + Author + + + | Author | [facility] | | | and [place] | + + + | Organization | [facility] | | [...] Team Providers + +------+ + | Care Unified Communications Architect Name | Role | Phone | + +------+ + | Koko Orantes MD | PCP | | + +------+ + Reason for Visit + +--------+ + | Reason | Onset | Comments | | | Date | | + +--------+ + | Appointment | 01/04/ | | | | 2015 | | + +--------+ + Encounter Details +--------+ + + + + | Date | Type | Department | Care Team | Description | +--------+ + + + + | 01/04/ | Telephone | [facility] | Lul Arcos | Appointment | | 2015 | | [address] | MD Marcello [address] | | | | | [place], | [address] [place] [address] [place] | | | | | [place] [address] | [place] [address] | | | | | [phone] | [phone] | | | | | | | [...] this encounter Miscellaneous Notes Telephone Encounter - Kim Carias - 01/17/2016 1:20 PM PDTPatient has been scheduledEle ctronically signed by Kim Carias at 01/17/2016 1:20 PM PDTTelephone Encounter - Jennifer Chow - 01/05/2016 5:01 PM PDTReason for call: Recall for 6 MO FOLLOW UP from 2015 Result of call: Left Voicemail asking patient to call back to schedule documented in this e ncounter Plan of Treatment +--------+---------+ + + + [...]
--- OUTSIDE RECORDS SUMMARY | ~2020-02-25 | XMS | Encounter Summary ---
Demographics + + + | Address | [address]. | | | [place] [address] | + + + | Home Phone | | + + + | Preferred Language | Unknown | + + + | Marital Status | | + + + | Congregational Affiliation | Unknown | + + + | Race | White | + + + | Ethnic Group | Not or | + + + Author + + + | Author | [facility] | | | and [place] | + + + | Organization | [facility] | | | [...] Team Providers + +------+ + | Care Field Crop I Farmworker Name | Role | Phone | + [...] Description | +--------+---------+ + + + | 09/04/ | Office | [facility] | Lul Arcos | Bradycardia (Primary | | 2016 | Visit | CARDIOLOGY [address] | MD Marcello [address] | Dx); Essential | | | | [place], | [address] [place] | hypertension; | | | | [place] [address] | [place] [address] | Coronary artery | | | | [phone] | [phone] | disease, angina | | | | | | presence | | | | | | unspecified, | | | | | | unspecified vessel | | | | | | or lesion type, | | | | | | unspecified whether | | | | | | yocha dehe or | | | | | | transplanted heart | +--------+---------+ + + + Social History [...] + + + | Blood Pressure | 152/92 | 09/05/2015 11:57 AM | [place] | | | | PDT | | + + + + + | Pulse | 54 | 09/05/2015 11:57 AM | regular | | | | PDT | | + + + + + | Temperature | - | - | | + + + + + | Respiratory Rate | 16 | 09/05/2015 11:57 AM | | | | | PDT | | + + + + + | Oxygen Saturation | - | - | | + + + + + | Inhaled Oxygen | - | - | | | Concentration | | | | + + + + + | Weight | 67.6 kg (149 lb) | 09/05/2015 11:57 AM | | | | | PDT | | + + + + + | Height | 157.5 cm (5' 2") | 09/05/2015 11:57 AM | | | | | PDT | | + + + + + | Body Mass Index | 27.25 | 09/05/2015 11:57 AM | | | | | PDT | | + + + + + documented in this encounter Progress Notes Lul Arcos MD - 09/05/2015 11:58 AM PDTFormatting of this note might be differe nt from the original. Subjective: Cardiology Office Visit Date of Service: 09/05/15 Patient ID: Naomi Fernandez is a 79 y.o. female. PCP: Koko Orantes MD Shortness of Breath Pertinent negatives include no abdominal pain, chest pain, ear pain, fever, headaches, leg swelling, rash, vomiting or wheezing. Hypertension Associated symptoms include shortness of breath. Pertinent negatives include no chest pain, headaches or palpitations. Naomi Fernandez is a 79 y.o. female with a history of dyspnea on exertion and severe hypertens ion who presents for a follow-up visit. Previously she was recovering from the of her daughter from pulmonary complications at age 51, and recently returned from trip to [place] when she went to [employer] her [employer] She has gained approximately 10 pounds due to dietary i ndiscretions over the holidays, after having lost 8 pounds prior to her last visit. She has measured some blood pressure readings at home, it has noticed significant improvement since our last visit and initiation of therapy with amlodipine. She believes that her systolics h ave been in the 130s maximally. She also had recent laboratory workup which suggested borde rline baseline diabetes. She had symptoms of feeling fatigued primarily with going upstairs as well as walking uphil l for quite some time, perhaps one year, but she states that he had significantly improved s yissel her blood pressure has normalized. Otherwise she is quite active and goes on one long d aily walk each morning with her dog. She denies any trouble with walking on level ground and denies having chest pains per se, nor any orthopnea, PND, or lower extremity edema. She den ies any palpitations, lightheadedness, or history of syncope. She denies any previous cardia c vascular testing with imaging or any history of known CAD, cardiomyopathy, peripheral goldie rial disease. Patient Active Problem List Diagnosis DIVERTICULOSIS Gout Depression Goiter Renal cyst Hypothyroidism Hypertension Glaucoma SOB (shortness of breath) on exertion Bradycardia Past Surgical History Procedure Laterality Date Hysterectomy Cholecystectomy Appendectomy Cataract removal bilateral Joint replacement 2011 right Joint replacement 08/2012 left Tonsillectomy Rhinoplasty History reviewed. No pertinent family history. 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 lisinopril (PRINIVIL, ZESTRIL) 10 mg tablet Take 1 tablet by mouth Daily. 90 tablet 3 pravastatin (PRAVACHOL) 20 mg tablet Take 1 tablet by mouth nightly. 90 tablet 3 travoprost (TRAVATAN Z) 0.004% ophthalmic solution 1 drop once a day at bedtime (Patien t taking differently: Place 1 drop into both eyes nightly.) No current facility-administered medications for this visit. Allergies Allergen Reactions Lisinopril Other (See Comments) COUGH Penicillins Rash Review of Systems Constitutional: Negative for fever, chills, diaphoresis, activity change, appetite change, fatigue and unexpected weight change. HENT: Negative for congestion, dental problem, ear pain, hearing loss, nosebleeds and tinni tus. Eyes: Negative for visual disturbance. Respiratory: Positive for shortness of breath. Negative for apnea, cough, choking, chest ti ghtness, wheezing and stridor. Cardiovascular: Negative for chest pain, palpitations and leg swelling. Gastrointestinal: Negative for nausea, vomiting, abdominal pain, diarrhea, constipation, bl ood in stool, abdominal distention, anal bleeding and rectal pain. Genitourinary: Negative for dysuria, urgency, frequency, hematuria, decreased urine volume and difficulty urinating. Musculoskeletal: Negative for myalgias, back pain, joint swelling, arthralgias and gait pro blem. Skin: Negative for color change, rash and wound. Neurological: Negative for dizziness, tremors, seizures, syncope, speech difficulty, weakne ss, light-headedness, numbness and headaches. Hematological: Negative for adenopathy. Does not bruise/bleed easily. Psychiatric/Behavioral: Negative for confusion, sleep disturbance and decreased concentrati on. The patient is not nervous/anxious. BP 152/92 mmHg | Pulse 54 | Resp 16 | Ht 1.575 m (5' 2") | Wt 67.586 kg (149 lb) | BMI 27.2 5 kg/m2 Objective: Physical Exam Constitutional: She is oriented to person, place, and time. She appears well-developed and well-nourished. HENT: Head: Normocephalic and atraumatic. Eyes: Pupils are equal, round, and reactive to light. Neck: Neck supple. No JVD present. No thyromegaly present. Cardiovascular: Normal rate, regular rhythm, S1 normal, S2 normal, normal heart sounds, int act distal pulses and normal pulses. PMI is not displaced. Exam reveals no S3, no S4 and n o friction rub. No murmur heard. Pulmonary/Chest: Effort normal and breath sounds normal. No accessory muscle usage. No resp iratory distress. She exhibits no tenderness. Abdominal: Soft. Normal appearance and bowel sounds are normal. She exhibits no distension and no abdominal bruit. There is no hepatosplenomegaly. There is no tenderness. Musculoskeletal: Normal range of motion. Lymphadenopathy: She has no cervical adenopathy. Neurological: She is alert and oriented to person, place, and time. Skin: Skin is warm and dry. No rash noted. Psychiatric: She has a normal mood and affect. Her behavior is normal. Vitals reviewed. ECG: Reviewed by me today shows sinus bradycardia, rate 41, diffuse T wave flattening. LAB RESULTS: LIPID Lab Results Component Value Date TRIG 91 03/06/2012 HDL 55 03/06/2012 LDL 120 03/06/2012 CHOLHDL 2.7 10/28/2014 LDLEX 108* 09/02/2015 HDLEX 79.9 09/02/2015 TRIGEX 53 09/02/2015 CHOLEX 198 09/02/2015 CHEMISTRY Lab Results Component Value Date GLU 117 02/03/2013 NA 140 02/03/2013 K 3.8 02/03/2013 CL 105 02/03/2013 CO2 26 02/03/2013 CALCIUM 9.9 02/03/2013 ALKPHOS 66 02/03/2013 AST 13 03/06/2012 ALT 10 03/06/2012 BILITOT 0.9 02/03/2013 BUN 27 02/03/2013 EGFREX 53 02/25/2015 CREEX 0.99 09/02/2015 HEMATOLOGY Lab Results Component Value Date HGBEX 13.7 10/27/2014 Holter monitor February 2013 interpreted and reviewed by me showed underlying sinus rhythm , frequent PVCs and rare PACs without any runs, frequent periods of bradycardia throughout t , with many pauses, longest being 2.4 seconds without symptoms. Nuclear stress perfusion study March 2013 interpreted and reviewed by me showed no signif icant ischemia. Echocardiogram March 2013 interpreted and reviewed by me showed LVEF 50%, mild concentric LVH, mild MR/TR, mild pulmonary systolic hypertension, small pericardial effusion. I personally reviewed records from another healthcare provider. Assessment: 1. Dyspnea on exertion - Thus far, patient's noninvasive workup has not suggested any signi ficant underlying ischemia , cardiomyopathy, or heart failure. Significant findings thus far observed to have been evidence of poorly controlled hypertension and frequent bradycardia. Patient symptoms have disappeared since her blood pressure has been better controlled. 2. Bradycardia - patient states that she has been on high-dose carvedilol therapy for many years and denies any significant obvious lightheadedness or history of syncope. Given border line pauses and frequent bradycardia, we down titrated carvedilol, to 12.5 mg b.i.d. Ultimat osman, patient may benefit from complete discontinuation. For now, there is no indication for device therapy. 3. Hypertension - in the past, patient had been quite hypertensive with blood pressure read ings in the range of 208/100. Systolics in the 170s and 180s had been common in her case. Th is appears to have resolved with additional therapy with amlodipine and down titration of he r beta case regimen given baseline bradycardia. Given evidence of borderline diabetes, p atient would benefit from empiric therapy with an BRAD inhibitor or ARB. We will increase he r lisinopril to 20 mg daily for better blood pressure control. For now I have asked her to hold her therapy with Cardura, and to periodically check her vitals and record them for futu re review. 4. Risk factor reduction - given [...] 3. Follow-up visit within 4-6 months. 4. Increase pravastatin to 40 mg daily. Increase lisinopril to 20 mg daily. Otherwise co ntinue medical regimen. 5. Check chemistry panel, fasting lipid profile, and LFTs prior to next visit. Portions of this report were transcribed using voice recognition software. Every effort wa s made to ensure accuracy; however, inadvertent computerized moveman errors may be pre sent. I appreciate the opportunity to help with the management of this patient. Yessica Arcos MD PhD FACC documented in t his encounter Miscellaneous Notes Addendum Note - Riccardo Hodgson RN - 09/06/2015 8:27 AM PDT Addended by: RICCARDO HODGSON on: 09/06/2015 08:27 Modules accepted: Orders documented in this encounter Plan of Treatment [...] [place] | | | | | | [id number] | | | | | | | | +--------+---------+ + + + + +------+--------+ + + | Name | Type | Priori | Associated Diagnoses | Order Schedule | | | | ty | | | + +------+--------+ + + | Basic Metabolic | Lab | Routin | Essential | 1 Occurrences | | Panel | | e | hypertension | starting 09/06/2015 | | | | | | until 09/05/2016 | + +------+--------+ + + | Lipid Profile | Lab | Routin | Coronary artery | 1 Occurrences | | | | e | disease, angina | starting 09/06/2015 | | | | | presence | until 09/05/2016 | | | | | unspecified, | | | | | | unspecified vessel | | | | | | or lesion type, | | | | | | unspecified whether | | | | | | yocha dehe or | | | | | | transplanted heart | | + +------+--------+ + + | Hepatic Function | Lab | Routin | Coronary artery | 1 Occurrences | | Panel | | e | disease, angina | starting 09/06/2015 | | | | | presence | until 09/05/2016 | | | | | unspecified, | | | | | | unspecified vessel | | | | | | or lesion type, | | | | | | unspecified whether | | | | | | yocha dehe or | | | | | | transplanted heart | | + +------+--------+ + + documented as of this encounter Procedures + +--------+ + + + | Procedure Name | Priori | Date/Time | Associated Diagnosis | Comments | | | ty | | | | + +--------+ + + + | LABS - EXTERNAL SCAN | | 04/02/2016 | | Results for this | | | | 12:00 AM | | procedure are in the | | | | PDT | | results section. | + +--------+ + + + documented in this encounter Results LABS - EXTERNAL SCAN (04/02/2016 12:00 AM PDT) + + + | Narrative | Performed At | + + + | Ordered by an | | | unspecified provider. | | + + + documented in this encounter Visit Diagnoses + + | Diagnosis | + + | Bradycardia - Primary Other specified cardiac dysrhythmias | + + | Essential hypertension Unspecified essential hypertension | + + | Coronary artery disease, angina presence unspecified, unspecified vessel or lesion | | type, unspecified whether yocha dehe or transplanted heart | + + documented in this encounter
--- OUTSIDE RECORDS SUMMARY | ~2020-02-25 | XMS | Encounter Summary ---
Demographics + + + | Address | [address]. | | | [place] [address] | + + + | Home Phone | | + + + | Preferred Language | Unknown | + + + | Marital Status | | + + + | Jainism Affiliation | Unknown | + + + | Race | White | + + + | Ethnic Group | Not or | + + + Author + + + | Author | [facility] | | | and [place] | + + + | Organization | [facility] | | | [...] Providers + +------+ + | Care Cost Consultant Name | Role | Phone | + +------+ + | Peter Phillips MD | PCP | | + +------+ + Encounter Details +--------+ + + + + | Date | Type | Department | Care Team | Description | +--------+ + + + + | 06/16/ | Orders Only | [facility] | Man Farris | | | 2012 | | [address] | MD [address] | | | | | [place], [place] | [facility] | | | | | [address] | [place] [address] | | | | | [phone] | [phone] | | | | | | | [...] [place] | | | | | | [id number] | | | | | | | | +--------+---------+ + + + documented as of this encounter Procedures + +--------+ + + + | Procedure Name | Priori | Date/Time | Associated Diagnosis | Comments | | | ty | | | | + +--------+ + + + | CULTURE, URINE | Routin | 06/16/2012 | | Results for this | | | e | 10:00 AM | | procedure are in the | | | | PST | | results section. | + +--------+ + + + | CULTURE, URINE | Routin | 03/06/2012 | | Results for this | | | e | 9:11 AM | | procedure are in the | | | | PDT | | results section. | + +--------+ + + + | CULTURE, URINE | Routin | 10/09/2011 | | Results for this | | | e | 10:30 AM | | procedure are in the | | | | PDT | | results section. | + +--------+ + + + documented in this encounter Results Culture, Urine (06/16/2012 10:00 AM PST) + + | Specimen | + + | | + + + + + | Narrative | Performed At | + + + | Specimen Description URINE, COLLECTION NOT | EXTERNAL LAB | | GIVEN Testing | | | performed at [facility];[address] [place] [address];[place] [address] CULTURE | | | >100,000 CFU/ML ESCHERICHIA | | | COLI 10,000 TO | | | 50,000 CFU/ML MIXED GRAM POSITIVE MADDISON NO SUSCEPTIBILITY TO FOLLOW | | | Testing performed | | | at [facility];[address] [place] [address];[place] [address] REPORT STATUS | | | 06/18/2012 FINAL Organism | | | ESCHERICHIA COLI Suscepibility for - | | | ESCHERICHIA COLI Ampicillin | | | SUSCEPTIBLESensitive Ampicillin + Sulbactam | | | SUSCEPTIBLESensitive Cefazolin | | | SUSCEPTIBLESensitive Cefepime | | | SUSCEPTIBLESensitive Cefoxitin | | | SUSCEPTIBLESensitive Ceftazidime | | | SUSCEPTIBLESensitive Ceftriaxone | | | SUSCEPTIBLESensitive Ciprofloxacin | | | SUSCEPTIBLESensitive Gentamicin | | | SUSCEPTIBLESensitive Piperacillin + Tazobactam | | | SUSCEPTIBLESensitive Tobramycin | | | SUSCEPTIBLESensitive Trimethoprim + | | | SulfamethoxazoleSUSCEPTIBLESensitive Nitrofurantoin | | | SUSCEPTIBLESensitive Levofloxacin | | | SUSCEPTIBLESensitive | | + + + + +---------+ + + | Performing | Address | City/State/Zipcode | Phone Number | | Organization | | | | + +---------+ + + | EXTERNAL LAB | | | | + +---------+ + + Culture, Urine (03/06/2012 9:11 AM PDT) + + | Specimen | + + | | + + + + + | Narrative | Performed At | + + + | Specimen Description URINE, COLLECTION NOT | EXTERNAL LAB | | GIVEN Testing | | | performed at [facility];[address] [place] [address];[place] [address] CULTURE | | | >100,000 CFU/ML KLEBSIELLA | | | PNEUMONIAE | | | >100,000 CFU/ML ESCHERICHIA COLI | | | Testing performed at [facility];[address] [place] [address] | | | [facility];[place] [address] REPORT STATUS | | | 03/09/2012 FINAL Organism | | | KLEBSIELLA PNEUMONIAE | | | ESCHERICHIA COLI Suscepibility for - KLEBSIELLA PNEUMONIAE | | | Ampicillin RESISTANT Resistant | | | Ampicillin + Sulbactam SUSCEPTIBLESensitive Cefazolin | | | SUSCEPTIBLESensitive Ceftazidime | | | SUSCEPTIBLESensitive Ceftriaxone | | | SUSCEPTIBLESensitive Ciprofloxacin | | | SUSCEPTIBLESensitive Gentamicin | | | SUSCEPTIBLESensitive Trimethoprim + | | | SulfamethoxazoleSUSCEPTIBLESensitive Nitrofurantoin | | | INTERMEDIATEIntermediate Levofloxacin | | | SUSCEPTIBLESensitive Suscepibility for - ESCHERICHIA COLI | | | Ampicillin SUSCEPTIBLESensitive | | | Ampicillin + Sulbactam SUSCEPTIBLESensitive Cefazolin | | | SUSCEPTIBLESensitive Ceftazidime | | | SUSCEPTIBLESensitive Ceftriaxone | | | SUSCEPTIBLESensitive Ciprofloxacin | | | SUSCEPTIBLESensitive Gentamicin | | | SUSCEPTIBLESensitive Trimethoprim + | | | SulfamethoxazoleSUSCEPTIBLESensitive Nitrofurantoin | | | SUSCEPTIBLESensitive Levofloxacin | | | SUSCEPTIBLESensitive | | + + + + +---------+ + + | Performing | Address | City/State/Zipcode | Phone Number | | Organization | | | | + +---------+ + + | EXTERNAL LAB | | | | + +---------+ + + Culture, Urine (10/09/2011 10:30 AM PDT) + + | Specimen | + + | | + + + + + | Narrative | Performed At | + + + | Specimen Description URINE, COLLECTION NOT | EXTERNAL LAB | | GIVEN Testing | | | performed at [facility];[address];[place] [address] CULTURE | | | >100,000 CFU/ML ESCHERICHIA | | | COLI Testing | | | performed at [facility];[address];[place] [address] REPORT | | | STATUS 2011 FINAL Organism | | | ESCHERICHIA COLI Suscepibility | | | for - ESCHERICHIA COLI Ampicillin | | | SUSCEPTIBLESensitive Ampicillin + Sulbactam | | | SUSCEPTIBLESensitive Cefazolin | | | SUSCEPTIBLESensitive Ceftazidime | | | SUSCEPTIBLESensitive Ceftriaxone | | | SUSCEPTIBLESensitive Ciprofloxacin | | | SUSCEPTIBLESensitive Gentamicin | | | SUSCEPTIBLESensitive Trimethoprim + | | | SulfamethoxazoleSUSCEPTIBLESensitive Nitrofurantoin | | | SUSCEPTIBLESensitive Levofloxacin | | | SUSCEPTIBLESensitive | | + + + + +---------+ + + | Performing | Address | City/State/Zipcode | Phone Number | | Organization | | | | + +---------+ + + | EXTERNAL LAB | | | | + +---------+ + + documented in this encounter Visit Diagnoses Not on filedocumented in this encounter"
--- OUTSIDE RECORDS SUMMARY | ~2020-02-25 | XMS | Encounter Summary ---
Demographics + + + | Address | [address]. | | | [place] [address] | + + + | Home Phone | | + + + | Preferred Language | Unknown | + + + | Marital Status | | + + + | Bahai Affiliation | Unknown | + + + | Race | White | + + + | Ethnic Group | Not or | + + + Author + + + | Author | [facility] | | | and [place] | + + + | Organization | [facility] | | [...] Team Providers + +------+ + | Care Infrastructure Developer Name | Role | Phone | + +------+ + | Petre Phillips MD | PCP | | + +------+ + Reason for Visit +--------+ + | Reason | Comments | +--------+ + | Other | lesion on right side nose-tender | +--------+ + Evaluate & Treat (Routine) +--------+ + [...] [place] | | | | | | [address] | [place] | | | | | | Phone: | [phone] | | | | | | [phone] | Phone: | | | | | | Fax: | [phone] | | | | | | [phone] | Fax: | | | | | | | [phone] | +--------+ + + + + + Encounter Details +--------+---------+ + + + | Date | Type | Department | Care Team | Description | +--------+---------+ + + + | 10/16/ | Office | [facility] | Naveed Adams MD | Neoplasm of | | 2019 | Visit | OTOLARYNGOLOGY [address] | [address] | uncertain behavior | | | | [address] [facility] [address] | [address] [place] | of skin (Primary Dx) | | | | [place] | [address] | | | | | [address] | | | | | | [phone] | | | +--------+---------+ + + + [...] + + + + | Pulse | 55 | 10/16/2018 10:10 AM | | | | | PDT | | + + + + + | Temperature | - | - | | + + + + + | Respiratory Rate | 18 | 10/16/2018 10:10 AM | | | | | PDT | | + + + + + | Oxygen Saturation | 96% | 10/16/2018 10:10 AM | | | | | PDT | | + + + + + | Inhaled Oxygen | - | - | | | Concentration | | | | + + + + + | Weight | 66.7 kg (147 lb) | 10/16/2018 10:10 AM | | | | | PDT | | + + + + + | Height | 152.4 cm (5') | 10/16/2018 10:10 AM | | | | | PDT | | + + + + + | Body Mass Index | 28.71 | 10/16/2018 10:10 AM | | | | | PDT | | + + + + + documented in this encounter Progress Notes Naveed Adams MD - 10/16/2018 10:30 AM PDTPatient has a growth on the right side of her no se it continues to enlarge. It's not causing any bleeding but every time she puts her glass es on it sits on this area. 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 He's not having any other ENT complaints. Examination: Patient is an alert 83-year-old female patient who is communicating well. Ski n of the face nose and ears have a lot of areas of the keratosis. On the right side of her nose there is a hard round lesion that's elevating that is right at the centimeters size roni t to is of concern. In the oral cavity no mass or lesions are noted. Neck is smooth withou t any mass or lymphadenopathy noted. Parotid submandibular and thyroid glands all feel norm al. Impression: Right nasal lesion of uncertain diagnosis. Plan: Patient will be scheduled have this removed in minor surgery and sent for path examin [facility]. 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
--- OUTSIDE RECORDS SUMMARY | ~2020-02-25 | XMS | Encounter Summary ---
Demographics + + + | Address | [address]. | | | [place] [address] | + + + | Home Phone | | + + + | Preferred Language | Unknown | + + + | Marital Status | | + + + | Buddhism Affiliation | Unknown | + + + | Race | White | + + + | Ethnic Group | Not or | + + + Author + + + | Author | [facility] | | | and [place] | + + + | Organization | [facility] | | [...] Team Providers + +------+ + | Care Extrusion Former Name | Role | Phone | + +------+ + PCP | Unavailable | + +------+ + Reason for Visit + + + | Reason | Comments | + + + | Shortness of Breath | Two month follow up, Echo, Holter Monitor, Nuclear Stress Test | | | 03/16/13 | + + + | Bradycardia | | + + + Encounter Details +--------+---------+ + + + | Date | Type | Department | Care Team | Description | +--------+---------+ + + + | 04/03/ | Office | [facility] | Lul Arcos | Hypertension | | 2012 | Visit | CARDIOLOGY [address] | MD [address] | (Primary Dx); | | | | [place], | [address] [place] | Dyspnea on exertion | | | | [place] [address] | [place] [address] | | | | | [phone] | [phone] | | | | | | | [...] + + + | Blood Pressure | 182/102 | 04/03/2013 10:31 AM | left arm | | | | PDT | | + + + + + | Pulse | 42 | 04/03/2013 10:31 AM | regular | | | | PDT | | + + + + + | Temperature | - | - | | + + + + + | Respiratory Rate | 16 | 04/03/2013 10:31 AM | | | | | PDT | | + + + + + | Oxygen Saturation | - | - | | + + + + + | Inhaled Oxygen | - | - | | | Concentration | | | | + + + + + | Weight | 64.4 kg (142 lb) | 04/03/2013 10:31 AM | | | | | PDT | | + + + + + | Height | 157.5 cm (5' 2") | 04/03/2013 10:31 AM | | | | | PDT | | + + + + + | Body Mass Index | 25.97 | 04/03/2013 10:31 AM | | | | | PDT | | + + + + + documented in this encounter Progress Notes Lul Arcos MD - 04/03/2013 11:09 AM PDTFormatting of this note might be differe nt from the original. Subjective: Cardiology Office Visit Date of Service: 04/03/2013 Patient ID: Naomi Fernandez is a 77 y.o. female. PCP: Man Farris Shortness of Breath Pertinent negatives include no abdominal pain, chest pain, ear pain, fever, headaches, leg swelling, rash, vomiting or wheezing. Naomi Fernandez is a 77 y.o. female with a history of dyspnea on exertion who presents for fur ther consultation. She has measured some blood pressure readings at home, displaying systoli cs in the 170s and heart rate in the 40s. She states that she has had symptoms of feeling fa tigued and when he primarily with going upstairs as well as walking uphill for quite some ti me, perhaps one year. Otherwise she is laterally active and goes on one long daily walk each morning with her dog. She denies any trouble with walking on level ground and denies having chest pains per se, nor any orthopnea, PND, or lower extremity edema. She denies any palpit ations, lightheadedness, or history of syncope. She denies any previous cardiac vascular kee ting with imaging or any history of known CAD, cardiomyopathy, peripheral arterial disease. Patient Active Problem List Diagnosis DIVERTICULOSIS Gout Depression Goiter Renal cyst Hypothyroidism Hypertension Glaucoma SOB (shortness of breath) on exertion Bradycardia Past Surgical History Procedure Date Hysterectomy Cholecystectomy Appendectomy Cataract removal bilateral Joint replacement 2011 right Joint replacement 08/2012 left Tonsillectomy Rhinoplasty No family history on file. 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 30 tablet 6 brimonidine (ALPHAGAN P) 0.1% SOLN Active 1 drop once a day at bedtime carvedilol (COREG) 25 mg tablet Active Take 25 mg by mouth 2 times daily. doxazosin (CARDURA) 4 mg tablet Active Take 4 mg by mouth nightly. levothyroxine (SYNTHROID, LEVOTHROID) 50 mcg tablet Active Take 50 mcg by mouth every m orning (before breakfast). travoprost (TRAVATAN Z) 0.004% ophthalmic solution Active 1 drop once a day at bedtime triamterene-hydrochlorothiazide (DYAZIDE) 37.5-25 MG per capsule Active 1/2 tablet by m outh once a day Allergies Allergen Reactions Lisinopril Penicillins Review of Systems Constitutional: Negative for fever, chills, diaphoresis, activity change, appetite change, fatigue and unexpected weight change. HENT: Negative for hearing loss, ear pain, nosebleeds, congestion, dental problem and tinni tus. Eyes: Negative for visual [...] on. The patient is not nervous/anxious. BP 182/102 | Pulse 42 | Resp 16 | Ht 1.575 m (5' 2") | Wt 64.411 kg (142 lb) | BMI 25.97 kg /m2 Objective: Physical Exam Vitals reviewed. Constitutional: She is oriented to person, place, [...] mood and affect. Her behavior is normal. ECG: Reviewed by me today shows sinus bradycardia, rate 41, diffuse T wave flattening. LAB: Abstract on 02/17/2013 Component Date Value Chol/HDL Ratio 02/03/2013 3.2 VLDL Cholesterol Edvin 02/03/2013 14 RBC 02/03/2013 4.26 MCV 02/03/2013 92.8 MCH 02/03/2013 30.0 MCHC 02/03/2013 33.0 RDW 02/03/2013 14.6 NA 02/03/2013 140 K 02/03/2013 3.8 Chloride 02/03/2013 105 CO2 02/03/2013 26 ANION GAP 02/03/2013 13 GLUCOSE 02/03/2013 117 BUN 02/03/2013 27 BUN/CREATININE 02/03/2013 24.3 CALCIUM 02/03/2013 9.9 Total protein 02/03/2013 6.5 ALBUMIN 02/03/2013 4.2 Globulin 02/03/2013 2.3 Albumin/Globulin Ratio 02/03/2013 1.8 BILIRUBIN TOTAL 02/03/2013 0.9 ALK PHOS 02/03/2013 66 Creatinine, External 02/03/2013 1.11 eGFR, External 02/03/2013 48 LDL Cholesterol, External 02/03/2013 124 Cholesterol, Total, Exte* 02/03/2013 201 HDL Cholesterol, External 02/03/2013 63.0 Triglycerides, External 02/03/2013 70 Cholesterol, Total, Non * 02/03/2013 138 TSH, External 02/03/2013 0.028 ALT, External 02/03/2013 16 AST, External 02/03/2013 17 WBC, External 02/03/2013 6.3 HGB, External 02/03/2013 12.9 HCT, External 02/03/2013 39.5 PLT, External 02/03/2013 192 Holter monitor February 2013 interpreted and reviewed by me showed underlying sinus rhythm , frequent PVCs and rare PACs without any runs, frequent periods of bradycardia throughout t day, with many pauses, longest being 2.4 [...] of poorly controlled hypertension and frequent bradycardia. 2. Bradycardia - patient states that she has been on high-dose carvedilol therapy for many years and denies any significant obvious lightheadedness or history of syncope. Given border line pauses and frequent bradycardia, we will begin to down titrate carvedilol, initially to one half the dosage at 12.5 mg b.i.d. Ultimately, patient may benefit from complete discont inuation. For now, there is no indication for device therapy. 3. Hypertension - patient is markedly hypertensive in the office - and upon my measurements later during the visits, she was actually found to be even more hypertensive with blood pre ssure readings in the range of 208/100. Systolics in the 170s and 180s appear to be common i n her case. I have asked her to begin therapy with amlodipine 10 mg daily - she will likely need a multidrug regimen, including at least 3-4 medications at high dosage to obtain adequa te blood pressure control. Unfortunately, it appears that one cannot safely use AV thania blo cking agents. Plan: 1. No further cardiovascular diagnostics for now. 2. Continue to monitor blood pressure readings. 3. followup visit within 6-8 weeks. 4. Decrease carvedilol dosing; begin amlodipine at 10 mg daily. Portions of this report were transcribed using voice recognition software. Every effort wa s made to ensure accuracy; however, inadvertent computerized sleeve baster errors may be pre sent. I appreciate the opportunity to help with the management of this patient. Yessica Arcos MD PhD documented in t his encounter Plan of Treatment +--------+---------+ + + + | Date | Type | Specialty | Care Team | Description | +--------+---------+ + + + | 03/03/ | Office | Otolaryngology | Naveed Adams MD | | | 2019 | Visit | | [address] [facility] [address] | | | | | | [address] [place] | | | | | | [address] | | | | | | | | +--------+---------+ + + + documented as of this encounter Visit Diagnoses + + | Diagnosis | + + | Hypertension - Primary Unspecified essential hypertension | + + | Dyspnea on exertion Other dyspnea and respiratory abnormality | + + documented in this encounter
--- OUTSIDE RECORDS SUMMARY | ~2020-02-25 | XMS | Encounter Summary ---
Demographics + + + | Address | [address]. | | | [place] [address] | + + + | Home Phone | | + + + | Preferred Language | Unknown | + + + | Marital Status | | + + + | Anglican Affiliation | Unknown | + + + [...] Team Providers + +------+ + | Care Gas Tester Name | Role | Phone | + +------+ + PCP | Unavailable | + +------+ + Reason for Visit + + + | Reason | Comments | + + + | Hypertension | One year follow up | + + + | Shortness of Breath | | + + + | Bradycardia | | + + + Encounter Details +--------+---------+ + + + | Date | Type | Department | Care Team | Description | +--------+---------+ + + + | 12/13/ | Office | [facility] | Lul Arcos | Bradycardia (Primary | | 2014 | Visit | CARDIOLOGY [address] | MD Marcello [address] | Dx); Essential | | | | [place], | [address] [place] | hypertension; | | | | [place] [address] | [facility] [place] [address] | Encounter for lipid | | | | [phone] | [phone] | screening for | | | | | | cardiovascular | | | | | | disease | +--------+---------+ + + + Social History [...] + + + | Blood Pressure | 140/74 | 12/13/2014 3:15 PM | right arm | | | | PDT | | + + + + + | Pulse | 60 | 12/13/2014 3:15 PM | regular | | | | PDT | | + + + + + | Temperature | - | - | | + + + + + | Respiratory Rate | 14 | 12/13/2014 3:15 PM | | | | | PDT | | + + + + + | Oxygen Saturation | - | - | | + + + + + | Inhaled Oxygen | - | - | | | Concentration | | | | + + + + + | Weight | 66.7 kg (147 lb) | 12/13/2014 3:15 PM | | | | | PDT | | + + + + + | Height | 157.5 cm (5' 2") | 12/13/2014 3:15 PM | | | | | PDT | | + + + + + | Body Mass Index | 26.89 | 12/13/2014 3:15 PM | | | | | PDT | | + + + + + documented in this encounter Progress Notes Lul Arcos MD - 12/13/2014 3:21 PM PDTFormatting of this note might be differe nt from the original. Subjective: Cardiology Office Visit Date of Service: 12/13/14 Patient ID: Naomi Fernandez is a 79 y.o. female. PCP: Man Farris MD Hypertension Associated symptoms include shortness of breath. Pertinent negatives include no chest pain, headaches or palpitations. Shortness of Breath Pertinent negatives include no abdominal pain, chest pain, ear pain, fever, headaches, leg swelling, rash, vomiting or wheezing. Naomi Fernandez is a 79 y.o. female with a history of dyspnea on exertion and severe hypertens ion who presents for further consultation. She is very sad today because of the recent deat h of her daughter from pulmonary complications at age 50. She has measured some blood press ure readings at home, it has noticed significant improvement since our last visit and initia tion of therapy with amlodipine. She believes that her systolics have been in the 130s maxim ally. She also had recent laboratory workup which suggested borderline baseline diabetes. 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 amlodipine (NORVASC) 10 MG tablet Take 1 tablet by mouth Daily. 90 tablet 3 brimonidine (ALPHAGAN P) 0.1% SOLN 2 times daily. Brinzolamide-Brimonidine (SIMBRINZA) 1-0.2 % SUSP Place 1 drop into the left eye 3 time s daily. carvedilol (COREG) 25 mg tablet Take 1 tablet by mouth 2 times daily. 1/2 tablet twice daily 180 tablet 3 doxazosin (CARDURA) 4 mg tablet Take 1 tablet by mouth nightly. 90 tablet 3 indomethacin (INDOCIN) 25 mg capsule Take 25 mg by mouth 2 times daily (with breakfast & dinner). levothyroxine (SYNTHROID, LEVOTHROID) 25 mcg tablet Take 25 mcg by mouth every morning (before breakfast). travoprost (TRAVATAN Z) 0.004% ophthalmic solution 1 drop once a day at bedtime No current facility-administered medications for this visit. [...] on. The patient is not nervous/anxious. BP 140/74 mmHg | Pulse 60 | Resp 14 | Ht 1.575 m (5' 2") | Wt 66.679 kg (147 lb) | BMI 26.8 8 kg/m2 Objective: Physical Exam Constitutional: She is [...] diffuse T wave flattening. LAB: Abstract on 12/13/2014 Component Date Value Creatinine, External 10/27/2014 1.09 eGFR, External 10/27/2014 49* LDL Cholesterol, External 10/27/2014 121* Cholesterol, Total, Exte* 10/27/2014 207* HDL Cholesterol, External 10/27/2014 70.9 Triglycerides, External 10/27/2014 78 TSH, External 10/27/2014 0.964 Sodium, External 10/27/2014 139 Potassium, External 10/27/2014 4.0 Chloride, External 10/27/2014 106 Carbon Dioxide, External 10/27/2014 25 Calcium, External 10/27/2014 10.1 Protein, Total, External 10/27/2014 6.9 Albumin, External 10/27/2014 4.2 Bilirubin, Total, Metal Building Assembler* 10/27/2014 0.8 ALP, External 10/27/2014 69 AST, External 10/27/2014 14 ALT, External 10/27/2014 11 Uric Acid, External 10/27/2014 5.4 Glucose, External 10/27/2014 120* BUN, External 10/27/2014 21 Free Thyroxine Index, Ex* 10/27/2014 1.06 Hemoglobin A1c 10/27/2014 5.8 VLDL 10/28/2014 16 Chol/HDL Ratio 10/28/2014 2.7 Non HDL Chol. (LDL+VLDL) 10/28/2014 136* ANION GAP 10/27/2014 12 BUN/Creatinine Ratio 10/27/2014 19.3 Globulin 10/27/2014 2.7 Albumin/Globulin Ratio 10/27/2014 1.6 WBC, External 10/27/2014 6.7 HGB, External 10/27/2014 13.7 HCT, External 10/27/2014 41.3 PLT, External 10/27/2014 196 Neutrophils %, External 10/27/2014 66.1 Lymphocytes %, External 10/27/2014 22.2* Monocytes %, External 10/27/2014 6.3 Eosinophils %, External 10/27/2014 4.6 RBC, External 10/27/2014 4.43 MCV, External 10/27/2014 93 RDW, External 10/27/2014 13.7 Vitamin D, 25-Hydroxy, E* 10/27/2014 27* MCH 10/27/2014 31.0 MCHC 10/27/2014 33.0 BASOPHILS % 10/27/2014 0.8 Holter monitor February 2013 interpreted and reviewed [...] bradycardia. Given evidence of borderline diabetes, p dorian would benefit from empiric therapy with an BRAD inhibitor or ARB. I will start her on lisinopril 10 mg daily. For now I have asked her to hold her therapy with Cardura, and to periodically check her vitals and record them for future review. 4. Risk factor reduction - given evidence of borderline diabetes, patient would benefit fr om empiric statin therapy, and target LDL of 70 mg/dL ideally. We will start her on pravast atin at 10 mg daily which may need further up titration. Plan: 1. No further cardiovascular diagnostics for now. 2. Continue to monitor blood pressure readings. 3. followup visit within 2-3 months. 4. Additional therapy with pravastatin and lisinopril. Hold Cardura for now. Otherwise c ontinue medical regimen. 5. Recheck fasting lipid profile and LFTs prior to follow-up visit. Portions of this report were transcribed using voice recognition software. Every effort wa s made to ensure accuracy; however, inadvertent computerized atomic spectroscopist errors may be pre sent. I appreciate the opportunity to help with the management of this patient. Yessica Arcos MD PhD FACC documented in t his encounter Plan of Treatment +--------+---------+ + + + | Date | Type | Specialty | Care Team | Description | +--------+---------+ + + + | 03/03/ | Office | Otolaryngology | Naveed Adams MD | | | 2020 | Visit | | [address] | | | | | | [address] [place] | | | | | | [id number] | | | | | | | | +--------+---------+ + + + + +------+--------+ + + | Name | Type | Priori | Associated Diagnoses | Order Schedule | | | | ty | | | + +------+--------+ + + | ECG 12 lead | ECG | Routin | Bradycardia | Ordered: 12/13/2014 | | | | e | | | + +------+--------+ + + | Lipid Panel | Lab | Routin | Essential | Expected: | | | | e | hypertension | 02/01/2015, Expires: | | | | | Encounter For Lipid | 12/13/2015 | | | | | Screening For | | | | | | Cardiovascular | | | | | | Disease | | + +------+--------+ + + | Hepatic Function | Lab | Routin | Essential | Expected: | | Panel | | e | hypertension | 02/01/2015, Expires: | | | | | Encounter For Lipid | 12/13/2015 | | | | | Screening For | | | | | | Cardiovascular | | | | | | Disease | | + +------+--------+ + + | Basic Metabolic | Lab | Routin | Essential | Expected: | | Panel | | e | hypertension | 02/01/2015, Expires: | | | | | Encounter For Lipid | 12/13/2015 | | | | | Screening For | | | | | | Cardiovascular | | | | | | Disease | | + +------+--------+ + + documented as of this encounter Procedures + +--------+ + + + | Procedure Name | Priori | Date/Time | Associated Diagnosis | Comments | | | ty | | | | + +--------+ + + + | ECG - EXTERNAL SCAN | | 12/14/2014 | | | | | | 12:00 AM | | | | | | PDT | | | + +--------+ + + + documented in this encounter Visit Diagnoses + + | Diagnosis | + + | Bradycardia - Primary Other specified cardiac dysrhythmias | + + | Essential hypertension Unspecified essential hypertension | + + | Encounter for lipid screening for cardiovascular disease | + + documented in this encounter
--- OUTSIDE RECORDS SUMMARY | ~2020-02-25 | XMS | Encounter Summary ---
Demographics + + + | Address | [address]. | | | [place] [address] | + + + | Home Phone [...] Team Providers + +------+ + | Care Installers Mechanical Name | Role | Phone | + +------+ + | Peter Phillips MD | PCP | | + +------+ + Reason for Visit + + + | Reason | Comments | + + + | Follow-up | left lesion below ear-bleeding | + + + Evaluate & Treat (Routine) +--------+ + + + + + | Status | Reason | Specialty | Diagnoses / | Referred By | Referred To | | | | | Procedures | Contact | Contact | +--------+ + + + + + | Closed | Specialty | Otolaryngolog | Diagnoses | [place], | [facility] | | | Services | y | Lip cyst | Peter Mukherjee MD | Otolaryngolog | | | Required | | | [address] | [address] | | | [address] | [address] | | | | | | [place] | [address] [place] | | | | | | [address] | [place] | | | | | | Phone: | [phone] | | | | | | [phone] | Phone: | | | | | | Fax: | [phone] | | | | | | [phone] | Fax: | | | | | | | [phone] | +--------+ + + + + + Encounter Details +--------+---------+ + + + | Date | Type | Department | Care Team | Description | +--------+---------+ + + + | 08/20/ | Office | [facility] | Peter Phillips, | Neoplasm of | | 2019 | Visit | OTOLARYNGOLOGY [address] | MD [address] | uncertain behavior | | | | [address] | [place] | of skin (Primary Dx) | | | | [place], [place] | [address] | | | | | [address] | | | | | | [phone] | Naveed Adams MD | | | | | | [address] | | | | | | [address] [place] | | | | | | [address] | | | | | | | [...] + + | Pulse | 54 | 08/20/2018 11:16 AM | | | | | PDT | | + + + + + | Temperature | - | - | | + + + + + | Respiratory Rate | 16 | 08/20/2018 11:16 AM | | | | | PDT | | + + + + + | Oxygen Saturation | 95% | 08/20/2018 11:16 AM | | | | | PDT | | + + + + + | Inhaled Oxygen | - | - | | | Concentration | | | | + + + + + | Weight | 66.7 kg (147 lb) | 08/20/2018 11:16 AM | | | | | PDT | | + + + + + | Height | 152.4 cm (5') | 08/20/2018 11:16 AM | | | | | PDT | | + + + + + | Body Mass Index | 28.71 | 08/20/2018 11:16 AM | | | | | PDT | | + + + + + documented in this encounter Progress Notes Naveed Adams MD - 08/20/2018 11:00 AM PDTPatient comes in because she has a growth on the left neck that has been scabbing and bleeding for about 2 months. He is concerned that thi s may be a skin cancer. 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 She also has a few small lesions on the nose that she woul d like examined. The ones in the nose are tiny irregular lumps but they've not been changin g in size as far see area Examination: Patient is an alert 82-year-old female patient in no acute distress. Skin of the face nose and ears is thoroughly examined and the area on the lower lip where the basal cell was removed appears very smooth and normal at this point. She has some small almost sc ar area elevated on her nose with 3 of these noted that none that this point that to her eit her crusting or bleeding or have elevated edges like a skin cancer. Seeing there not changi ng they will continue to be observed. On the left neck just below her ear lobe there is a n onhealing scabbed area that may well be a skin cancer. No lymphadenopathy or other abnormal ities were noted. Parotid submandibular and thyroid gland areas feel normal. Special procedure: Preoperative diagnosis is left skin lesion of uncertain diagnosis. Postop diagnosis the same Procedure. The skin lesion on the left neck area was initially treated with some topical X ylocaine. The area was then injected with 1% Xylocaine with epinephrine. An elliptical inc ision was made to remove the lesion and the size in diameter was 8 mm. The full-thickness s kin area was removed and this was sent for path examination. The wound was closed with inte rrupted 6-0 nylon suture. Some topical antibiotics were applied and patient is scheduled to have the sutures removed in 7 days. documented in this encounter Plan of Treatment +--------+---------+ + + + | Date | Type | Specialty | Care Team | Description | +--------+---------+ + + + | 03/03/ | Office | Otolaryngology | Naveed Adams MD | | | 2020 | Visit | | [address] [place] [address] | | | | | | [address] [facility] [place] | | | | | | [id number] | | | | | | | | +--------+---------+ + + + documented as of this encounter Procedures + +--------+ + + + | Procedure Name | Priori | Date/Time | Associated Diagnosis | Comments | | | ty | | | | + +--------+ + + + | SURGICAL PATHOLOGY | Routin | 08/20/2018 | | Results for this | | EXAM | e | 12:00 AM | | procedure are in the | | | | PDT | | results section. | + +--------+ + + + documented in this encounter Results Surgical Pathology Exam (08/20/2018 12:00 AM PDT) + + | Specimen | + + | | + + + + + | Narrative | Performed At | + + + | SPECIMEN(S): A LEFT NECK SPECIMEN SOURCE: A. LEFT NECK | [facility] | | CLINICAL HISTORY: Excision of left neck lesion. FINAL PATHOLOGIC | [facility] | | DIAGNOSIS: Skin left neck, excision: - Invasive, | | | well-differentiated squamous cell carcinoma with overlying | | | excoriation, not present at sampled margins. AMB:emb:C1NR | | | MICROSCOPIC EXAMINATION: Histologic sections of all submitted blocks | | | are examined by light microscopy. These findings, together with the | | | gross examination, support the pathologic diagnosis. GROSS | | | DESCRIPTION: The specimen, labeled "MB, left neck," is received in | | | formalin and consists of a 0.9 x 0.7 x 0.2 cm unoriented skin ellipse. | | | The skin surface is pink and smooth with a 0.5 x 0.4 cm red granular | | | lesion. The specimen is inked, sectioned and entirely submitted in | | | cassette (A1). FB (under the direct supervision of a pathologist) | | | The Gross Description was prepared using a voice recognition system. | | | The report was reviewed for accuracy; however, sound-alike word | | | errors, addition and/or deletions may occur. If there is any | | | question about this report, please contact Client Services. | | | PERFORMING LABORATORY: The technical component was performed by | | | [facility], [address] [place] [address] (Medical | | | Director: Constance Palomares MD; CLIA# [id number]). Professional | | | [facility] | | [address] [address] (Medical | | | Director: Kapil Méndez M.D.; CLIA#: [id number]). | | | Diagnostician: Constance Palomares MD Pathologist Electronically Signed | | | 08/22/2018 | | + + + + +---------+ + + | Performing | Address | City/State/Zipcode | Phone Number | | Organization | | | | + +---------+ + + | [facility] | | | | | [facility] | | | | + +---------+ + + documented in this encounter Visit Diagnoses + + | Diagnosis | + + | Neoplasm of uncertain behavior of skin - Primary | + + documented in this encounter
--- OUTSIDE RECORDS SUMMARY | ~2020-02-25 | XMS | Encounter Summary ---
Demographics + + + | Address | [address]. | | | [place] [address] | + + + | Home Phone | | + + + | Preferred Language | Unknown | + + + | Marital Status | | + + + | Lutheran Affiliation | Unknown | + + + | Race | White | + + + | Ethnic Group | Not or | + + + Author + + + | Author | [facility] | | | and [place] | + + + | Organization | [facility] | | | [...] Team Providers + +------+ + | Care Rn Wound Name | Role | Phone | + +------+ + PCP | Unavailable | + +------+ + Encounter Details +--------+ + + + + | Date | Type | Department | Care Team | Description | +--------+ + + + + | 01/20/ | Abstract | [facility] [place] | Lul Arcos | Gout (Primary Dx); | | 2012 | | CARDIOLOGY [address] | MD Marcello [address] | Depression; | | | | [place], | [address] [place] | Goiter; | | | | [place] [address] | [place] [address] | Renal cyst; | | | | [phone] | [phone] | Hypothyroidism; | | | | | | Hypertension; | | | | | | Glaucoma | +--------+ + + + + Social [...] [place] | | | | | | [address] | | | | | | | | +--------+---------+ + + + documented as of this encounter Procedures + +--------+ + + + | Procedure Name | Priori | Date/Time | Associated Diagnosis | Comments | | | ty | | | | + +--------+ + + + | TSH AND FT4 | Routin | 06/10/2012 | | Results for this | | | e | | | procedure are in the | | | | | | results section. | + +--------+ + + + | LIPID PANEL | Routin | 03/06/2012 | | Results for this | | | e | | | procedure are in the | | | | | | results section. | + +--------+ + + + | COMPREHENSIVE | Routin | 03/06/2012 | | Results for this | | METABOLIC PANEL | e | | | procedure are in the | | | | | | results section. | + +--------+ + + + documented in this encounter Results TSH and FT4 (06/10/2012) + +-------+ + + + | Component | Value | Ref Range | Performed | Pathologist | | | | | At | Signature | + +-------+ + + + | Free T4 | 1.2 | 0.8 - 1.6 ng/dL | | | + +-------+ + + + | TSH | 0.02 | uIU/mL | | | + +-------+ + + + + + | Specimen | + + | Blood specimen | | (specimen) | + + Comprehensive Metabolic Panel (03/06/2012) + +-------+ + + + | Component | Value | Ref Range | Performed | Pathologist | | | | | At | Signature | + +-------+ + + + | Na | 141 | mmol/L | [facility] | | [facility] | [facility] | [facility] | | + +-------+ + + + | K | 3.8 | mmol/L | [facility] | | | | | | [facility] | | [facility] | | [facility] | | | | [facility] - | | | | | | [facility]ORY | | + +-------+ + + + | Chloride | 107 | | [facility] | | | | | [facility] | | | | | | [facility] | | | | | [facility] - | | | | | | LAB[facility]ATORY | | + +-------+ + + + | CO2 | 30 | mmol/L | [facility] | | | | | | [facility] | | [facility] | | | [facility] | | | | | [facility] - | | | | | | LAB[facility]ATORY | | + +-------+ + + + | Anion Gap | 8 | mmol/L | [facility] | | | | | | [facility] | | | | | | [facility] | | | | | [facility] - | | | | | | [facility]ORY | | + +-------+ + + + | Glucose | 99 | mg/dL | [facility] | | | | | | [facility] | | | | | | [facility] | | | | | | [facility] - | | | | | | LAB[facility]ATORY | | + +-------+ + + + | BUN | 24 | mg/dL | [facility] | | | | | | [facility] | | | | | | [facility] | | | | | | [facility] - | | | | | | [facility]ATORY | | + +-------+ + + + | Creatine, | 0.96 | | [facility] | | | Serum | | | [facility] | | | | | | [facility] | | | | | | [facility] - | | | | | | LABORATORY | | + +-------+ + + + | GFR | >60 | | [facility] | | | ESTIMATE | | | [facility] | | | (REF) | | | [facility] | | | | | | [facility] - | | | | | | LABORATORY | | + +-------+ + + + | Bun/Creatin | 25 | | [facility] | | | ine | | | [facility] | | | | | | [facility] | | | | | | [facility] - | | | | | | LAB[facility]ATORY | | + +-------+ + + + | Calcium | 10.2 | mg/dL | [facility] | | | | | | [facility] | | | | | | [facility] | | | | | | [facility] - | | | | | | LAB[facility]ATORY | | + +-------+ + + + | Total | 6.5 | 6.1 - 8.4 g/dL | [facility] | | | Protein | | | [facility] | | | | | | [facility] | | | | | | [facility] - | | | | | | LAB[facility]ATORY | | + +-------+ + + + | Albumin | 4.0 | 3.3 - 4.8 g/dL | [facility] | | | | | | [facility] | | | | | | [facility] | | | | | | [facility] - | | | | | | LAB[facility]ATORY | | + +-------+ + + + | Globulin | 2.5 | | [facility] | | | | | | [facility] | | | | | | [facility] | | | | | | [facility] - | | | | | | LAB[facility]ATORY | | + +-------+ + + + | Albumin/Felipa | 1.6 | | [facility] | | | bulin Ratio | | | [facility] | | | | | | [facility] | | | | | | [facility] - | | | | | | LAB[facility]ATORY | | + +-------+ + + + | Bilirubin | 0.6 | 0.1 - 1.5 mg/dL | [facility] | | | Total | | | [facility] | | | | | | [facility] | | | | | | [facility] - | | | | | | LAB[facility]ATORY | | + +-------+ + + + | Alkaline | 52 | 35 - 115 U/L | [facility] | | | Phosphatase | | | [facility] | | [facility] | | | [facility] | | | | | | [facility] - | | | | | | LABORATORY | | + +-------+ + + + | ALT | 10 | U/L | [facility] | | | | | | [facility] | | | | | | [facility] | | | | | | [facility] - | | | | | | LABORATORY | | + +-------+ + + + | AST | 13 | 10 - 45 U/L | [facility] | | | | | | [facility] | | | | | | [facility] | | | | | | [facility] - | | | | | | LAB[facility]ATORY | | + +-------+ + + + + + | Specimen | + + | Blood specimen | | (specimen) | + + + + + + + | Performing | Address | City/State/Zipcode | Phone Number | | Organization | | | | + + + + + | [facility] | [address] | [place] | | | [facility] | | [address] | | | - LABORATORY | | | | + + + + + Lipid Panel (03/06/2012) + +-------+ + + + | Component | Value | Ref Range | Performed | Pathologist | | | | | At | Signature | + +-------+ + + + | Cholesterol | 193 | | | | | , Total | | | | | + +-------+ + + + | Triglycerid | 91 | mg/dL | | | | es | | | | | + +-------+ + + + | HDL | 55 | mg/dl | | | + +-------+ + + + | LDL, | 120 | 130 mg/dL | | | | Calculated | | | | | + +-------+ + + + + + | Specimen | + + | Blood specimen | | (specimen) | + + documented in this encounter Visit Diagnoses + + | Diagnosis | + + | Gout - Primary Gout, unspecified | + + | Depression Depressive disorder, not elsewhere classified | + + | Goiter Goiter, unspecified | + + | Renal cyst Unspecified congenital cystic kidney disease | + + | Hypothyroidism Unspecified hypothyroidism | + + | Hypertension Unspecified essential hypertension | + + | Glaucoma Unspecified glaucoma | + + documented in this encounter"
--- OUTSIDE RECORDS SUMMARY | ~2020-02-25 | XMS | Encounter Summary ---
Demographics + + + | Address | [address]. | | | [place] [address] | + + + | Home Phone | | + + + | Preferred Language | Unknown | + + + | Marital Status | | + + + | Caodaism Affiliation | Unknown | + + + | Race | White | + + + | Ethnic Group | Not or | + + + Author + + + | Author | [facility] | | | and [place] | + + + | Organization | [facility] | | | [...] Team Providers + +------+ + | Care Pantry Worker Name | Role | Phone | + +------+ + | Koko Orantes MD | PCP | | + +------+ + Reason for Visit +--------+--------+ + | Reason | Onset | Comments | | | Date | | +--------+--------+ + | LABS | 02/24/ | FASTING-labs due prior to appt 02/28/15 | | | 2014 | | +--------+--------+ + Encounter Details +--------+ + + + + | Date | Type | Department | Care Team | Description | +--------+ + + + + | 02/24/ | Telephone | [facility] | Lul Arcos | LABS (FASTING-labs | | 2014 | | CARDIOLOGY [address] | MD Marcello [address] | due prior to appt | | | | [place], | [address] [place] | 02/28/15) | | | | [place] [address] | [place] [address] | | | | | [phone] | [phone] | | | | | | | [...] this encounter Miscellaneous Notes Telephone Encounter - Karolyn Tobias CMA - 02/24/2015 2:31 PM PDTPatient notified that FASTI NG-labs are due prior to appt 02/28/15. Orders faxed to [facility] in [place] per her sammi t. Thank you, RANDAL Ordaz documented in this encou nter Plan of Treatment +--------+---------+ + + + | Date | Type | Specialty | Care Team | Description | +--------+---------+ + + + | 03/03/ | Office | Otolaryngology | Naveed Adams MD | | | 2019 | Visit | | [address] | | | | | | [address] [place] | | | | | | [id number] | | | | | | | | +--------+---------+ + + + documented as of this encounter Visit Diagnoses Not on filedocumented in this encounter"
--- OUTSIDE RECORDS SUMMARY | ~2020-02-25 | XMS | Encounter Summary ---
Demographics + + + | Address | [address]. | | | [place] [address] | + + + | Home Phone | | + + + | Preferred Language | Unknown | + + + | Marital Status | | + + + | Mormon Affiliation | Unknown | + + + [...] Team Providers + +------+ + | Care Denture Laboratory Technician Name | Role | Phone | + +------+ + PCP | Unavailable | + +------+ + Reason for Visit + + + | Reason | Comments | + + + | Bradycardia | six month follow-up | + + + | Hypertension | | + + + Encounter Details +--------+---------+ + + + | Date | Type | Department | Care Team | Description | +--------+---------+ + + + | 12/28/ | Office | [facility] | Lul Arcos | Hypertension | | 2013 | Visit | CARDIOLOGY [address] | MD Marcello [address] | (Primary Dx) | | | | [address] [place], | [address] [place] | | | | | [place] [address] | [place] [address] | | | | | [phone] | [phone] | | | | | | | [...] + + + | Blood Pressure | 126/66 | 12/28/2013 9:38 AM | left arm | | | | PDT | | + + + + + | Pulse | 68 | 12/28/2013 9:38 AM | regular | | | | PDT | | + + + + + | Temperature | - | - | | + + + + + | Respiratory Rate | 14 | 12/28/2013 9:38 AM | | | | | PDT | | + + + + + | Oxygen Saturation | - | - | | + + + + + | Inhaled Oxygen | - | - | | | Concentration | | | | + + + + + | Weight | 64.9 kg (143 lb) | 12/28/2013 9:38 AM | | | | | PDT | | + + + + + | Height | 157.5 cm (5' 2") | 12/28/2013 9:38 AM | | | | | PDT | | + + + + + | Body Mass Index | 26.16 | 12/28/2013 9:38 AM | | | | | PDT | | + + + + + documented in this encounter Progress Notes Lul Arcos MD - 12/28/2013 9:48 AM PDTFormatting of this note might be differe nt from the original. Subjective: Cardiology Office Visit Date of Service: 12/28/2013 Patient ID: Naomi Fernandez is a 78 y.o. female. PCP: Man Farris Hypertension Associated symptoms include shortness of breath. Pertinent negatives include no chest pain, headaches or palpitations. Shortness of Breath Pertinent negatives include no abdominal pain, chest pain, ear pain, fever, headaches, leg swelling, rash, vomiting or wheezing. Naomi Fernandez is a 78 y.o. female with a history of dyspnea on exertion and severe hypertens ion who presents for further consultation. She has measured some blood pressure readings at home, it has noticed significant improvement since our last visit and initiation of therapy with amlodipine. She believes that her systolics have been in the 130s maximally. 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 carvedilol (COREG) 25 mg tablet Take 25 mg by mouth 2 times daily. 1/2 tablet twice marques ly doxazosin (CARDURA) 4 mg tablet Take 4 mg by mouth nightly. levothyroxine (SYNTHROID, LEVOTHROID) 50 mcg tablet Take 25 mcg by mouth every morning (before breakfast). travoprost (TRAVATAN Z) 0.004% ophthalmic solution 1 drop once a day at bedtime triamterene-hydrochlorothiazide (DYAZIDE) 37.5-25 MG per capsule [ PATIENT NOT TAKING ] Allergies Allergen Reactions Lisinopril Penicillins Review of [...] on. The patient is not nervous/anxious. BP 126/66 | Pulse 68 | Resp 14 | Ht 1.575 m (5' 2") | Wt 64.864 kg (143 lb) | BMI 26.15 kg/ m2 Objective: Physical Exam Vitals reviewed. Constitutional: She [...] rate 41, diffuse T wave flattening. LAB: No visits with results within 2 Month(s) from this visit. Latest known visit with results is: Abstract on 02/17/2013 Component Date Value Chol/HDL [...] down titrated carvedilol, to 12.5 mg b.i.d. Dericat osman, patient may benefit from complete discontinuation. For now, there is no indication for device therapy. 3. Hypertension - patient had been quite hypertensive with blood pressure readings in the r mario of 208/100. Systolics in the 170s and 180s appear to be common in her case. This appear s to have resolved with additional therapy with amlodipine and down titration of her beta bl ocker regimen given baseline bradycardia. 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 Plan: 1. No further cardiovascular diagnostics for now. 2. Continue to monitor blood pressure readings. 3. followup visit within 6-12 months. 4. Current medical regimen. Portions of this report were transcribed using voice recognition software. Every effort wa s made to ensure accuracy; however, inadvertent computerized freight solicitor errors may be pre sent. I appreciate [...] 2020 | Visit | | [address] | | | | | | [address] [place] | | | | | | [id number] | | | | | | | | +--------+---------+ + + + documented as of this encounter Visit Diagnoses + + | Diagnosis | + + | Hypertension - Primary Unspecified essential hypertension | + + documented in this encounter
--- OUTSIDE RECORDS SUMMARY | ~2020-02-25 | XMS | Encounter Summary ---
Demographics + + + | Address | [address]. | | | [place] [address] | + + + | Home Phone | | + + + | Preferred Language | Unknown | + + + | Marital Status | | + + + | Restoration Affiliation | Unknown | + + + | Race | White | + + + | Ethnic Group | Not or | + + + Author + + + | Author | [facility] | | | and [place] | + + + | Organization | [facility] | | | and [...] Team Providers + +------+ + | Care Purchasing Internship Name | Role | Phone | + +------+ + | Peter Phillips MD | PCP | | + +------+ + Reason for Visit + +--------+ + | Reason | Onset | Comments | | | Date | | + +--------+ + | Appointment | 04/10/ | | | | 2019 | | + +--------+ + Encounter Details +--------+ + + + + | Date | Type | Department | Care Team | Description | +--------+ + + + + | 04/10/ | Telephone | [facility] | Peter Phillips, | Appointment | | 2019 | | [facility]IC[facility] [place] | [address] | | | | | [address] | [place] | | | | | [place] | [address] | | | | | [address] | | | | | | [phone] | | | +--------+ + + + [...] this encounter Miscellaneous Notes Telephone Encounter - Sherry Ibarra - 04/13/2019 10:56 AM PSTPatient schedule 06/22/18Elec tronically signed by Sherry Ibarra at 04/13/2019 10:56 AM PSTTelephone Encounter - Mirtha Metzger - 04/13/2019 10:33 AM PSTLeft voicemail to schedule. elephone Encounter - Mya Martinez RN - 04/10/2019 2:33 PM PSTPlease schedule 6 month medication follow-up / hypertension with PCP. Thanks. documented in this encounter Plan of Treatment [...]
--- OUTSIDE RECORDS SUMMARY | ~2020-02-25 | XMS | Encounter Summary ---
Demographics + + + | Address | [address]. | | | [place] [address] | + + + | Home Phone | | + + + | Preferred Language | Unknown | + + + | Marital Status | | + + + | Religion Affiliation | Unknown | + + + | Race | White | + + + | Ethnic Group | Not or | + + + Author + + + | Author | [facility] | | | and [place] | + + + | Organization | [facility] | | [...] Team Providers + +------+ + | Care Vegetable Tier Name | Role | Phone | + +------+ + | Peter Phillips MD | PCP | | + +------+ + Encounter Details +--------+ + + + + | Date | Type | Department | Care Team | Description | +--------+ + + + + | 11/05/ | Abstract | [facility] | Peter Phillips, | | | 2018 | | MEDICINE [place] | MD [address] | | | | | [address] | [place] | | | | | [place] | [address] | | | | | [address] | | | | | | [phone] | | | +--------+ + + + [...] [place] | | | | | | [address] | | | | | | | | +--------+---------+ + + + documented as of this encounter Procedures + +--------+ + + + | Procedure Name | Priori | Date/Time | Associated Diagnosis | Comments | | | ty | | | | + +--------+ + + + | EXTERNAL: | Routin | 09/12/2011 | | Results for this | | COLONOSCOPY | e | | | procedure are in the | | | | | | results section. | + +--------+ + + + documented in this encounter Results EXTERNAL: COLONOSCOPY (09/12/2011) + + + + + + | Component | Value | Ref Range | Performed | Pathologist | | | | | At | Signature | + + + + + + | Colonoscopy | Diverticulosis in the | | | | | | recto sigmoid, | | | | | Impression, | descending, transverse | | | | | External | and ascending colon. | | | | + + + + + + documented in this encounter Visit Diagnoses Not on filedocumented in this encounter"
--- OUTSIDE RECORDS SUMMARY | ~2020-02-25 | XMS | Encounter Summary ---
Demographics + + + | Address | [address]. | | | [place] [address] | + + + | Home Phone | | + + + | Preferred Language | Unknown | + + + | Marital Status | | + + + | Oriental Orthodox Affiliation | Unknown | + + + | Race | White | + + + | Ethnic Group | Not or | + + + Author + + + | Author | [facility] | | | and [place] | + + + | Organization | [facility] | | | [...] Team Providers + +------+ + | Care Equipment Service Associate Name | Role | Phone | + +------+ + PCP | Unavailable | + +------+ + Reason for Visit + + + | Reason | Comments | + + + | Hypertension | two month follow up | + + + Encounter Details +--------+---------+ + + + | Date | Type | Department | Care Team | Description | +--------+---------+ + + + | 06/11/ | Office | [facility] | Lul Arcos | Hypertension | | 2013 | Visit | CARDIOLOGY [address] | MD Marcell[address] | (Primary Dx) | | | | [place], | [address] [place] | | | | | [place] [address] | [place] [address] | | | | | [phone] | [phone] | | | | | | | [...] + + + | Blood Pressure | 126/78 | 06/11/2013 11:20 AM | | | | | PST | | + + + + + | Pulse | 60 | 06/11/2013 11:20 AM | | | | | PST | | + + + + + | Temperature | - | - | | + + + + + | Respiratory Rate | 16 | 06/11/2013 11:20 AM | | | | | PST | | + + + + + | Oxygen Saturation | - | - | | + + + + + | Inhaled Oxygen | - | - | | | Concentration | | | | + + + + + | Weight | 66.2 kg (146 lb) | 06/11/2013 11:20 AM | | | | | PST | | + + + + + | Height | 157.5 cm (5' 2") | 06/11/2013 11:20 AM | | | | | PST | | + + + + + | Body Mass Index | 26.7 | 06/11/2013 11:20 AM | | | | | PST | | + + + + + documented in this encounter Progress Notes Lul Arcos MD - 06/11/2013 11:50 AM PSTFormatting of this note might be differe nt from the original. Subjective: Cardiology Office Visit Date of Service: 06/11/2013 Patient ID: Naomi Fernandez is a 77 y.o. female. 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 30 tablet 6 brimonidine (ALPHAGAN P) 0.1% SOLN 1 drop once a day at bedtime carvedilol (COREG) 25 mg tablet Take 25 mg by mouth 2 times daily. doxazosin (CARDURA) 4 mg tablet Take 4 mg by mouth nightly. levothyroxine (SYNTHROID, LEVOTHROID) 50 mcg tablet Take 50 mcg by mouth every morning (before breakfast). travoprost (TRAVATAN Z) 0.004% ophthalmic solution 1 drop once a day at bedtime triamterene-hydrochlorothiazide (DYAZIDE) 37.5-25 MG per capsule 1/2 tablet by mouth on ce a day Allergies Allergen Reactions Lisinopril Penicillins [...] on. The patient is not nervous/anxious. BP 126/78 | Pulse 60 | Resp 16 | Ht 1.575 m (5' 2") | Wt 66.225 kg (146 lb) | BMI 26.70 kg/ m2 Objective: Physical Exam Vitals reviewed. 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 Plan: 1. No further cardiovascular diagnostics for now. 2. Continue to monitor blood pressure readings. 3. followup visit within 6 months. 4. Current medical regimen. Portions of this report were transcribed using voice recognition software. Every effort wa s made to ensure accuracy; however, inadvertent computerized net developer errors may be pre sent. I appreciate [...] Visit | | [address] [facility] | | | | | | [address] [place] | | | | | | [id number] | | | | | | | | +--------+---------+ + + + documented as of this encounter Visit Diagnoses + + | Diagnosis | + + | Hypertension - Primary Unspecified essential hypertension | + + documented in this encounter
--- OUTSIDE RECORDS SUMMARY | ~2020-02-25 | XMS | Encounter Summary ---
Demographics + + + | Address | [address]. | | | [place] [address] | + + + | Home Phone | | + + + | Preferred Language | Unknown | + + + | Marital Status | | + + + | Episcopal Affiliation | Unknown | + + + [...] Team Providers + +------+ + | Care Supervisor Slitting And Shipping Name | Role | Phone | + +------+ + | Peter Phillips MD | PCP | | + +------+ + Encounter Details +--------+---------+ + + + | Date | Type | Department | Care Team | Description | +--------+---------+ + + + | 06/11/ | Office | [facility] [place] | Naveed Adams MD | Neoplasm of | | 2019 | Visit | OTOLARYNGOLOGY [address] | [address] | uncertain behavior | | | | [address] | [address] [place], [place] | of skin (Primary Dx) | | | | [place], [place] | [address] | | | | | [address] | | | | | | [phone] | | | +--------+---------+ + + + [...] + + documented as of this encounter Progress Notes Naveed Adams MD - 06/11/2018 11:30 AM PSTPre-op diagnosis: Right lower lip lesion of unce rtain diagnosis Postop diagnosis: Same Findings: Patient has then elevated lesion of the right lower lip that on resection was 6 m m wide. Procedure: After the area had initially been treated with some topical Xylocaine the area w as injected with 1% Xylocaine with epinephrine following this an elliptical incision was mad e around the entire lesion and carried full-thickness through the skin and removed in 1 piec e. Once removed the wound was closed with interrupted 6-0 nylon suture. Some topical antib iotic was applied to the wound. Patient was given a appointment to have the sutures removed in 1 week's time. Corina hilario in this encounter Plan of Treatment +--------+---------+ + + + | Date | Type | Specialty | Care Team | Description | +--------+---------+ + + + | 03/03/ | Office | Otolaryngology | Naveed Adams MD | | | 2019 | Visit | | [address] | | | | | | [address] [facility] [place] | | | | | | [address] | | | | | | | | +--------+---------+ + + + documented as of this encounter Procedures + +--------+ + + + | Procedure Name | Priori | Date/Time | Associated Diagnosis | Comments | | | ty | | | | + +--------+ + + + | SURGICAL PATHOLOGY | Routin | 06/11/2018 | | Results for this | | EXAM | e | 12:00 AM | | procedure are in the | | | | PST | | results section. | + +--------+ + + + documented in this encounter Results Surgical Pathology Exam (06/11/2018 12:00 AM PST) + + | Specimen | + + | | + + + + + | Narrative | Performed At | + + + | SPECIMEN(S): A RIGHT LOWER LIP SPECIMEN SOURCE: A. RIGHT LOWER | [place] [facility] | | LIP CLINICAL HISTORY: No preop or clinical information is given | [facility] | | on requisition. FINAL PATHOLOGIC DIAGNOSIS: Skin, right lower | | | lip, excision: - Nodular basal cell carcinoma. - Tumor size: 0.5 | | | x 0.5 x 0.4 cm (l x w x d). - Invades down deep into reticular | | | dermis short of subcutaneous fat. - Tumor is transected on one | | | lateral margin. LJA:cml:C1NR MICROSCOPIC EXAMINATION: | | | Histologic sections of all submitted blocks are examined by light | | | microscopy. These findings, together with the gross examination, | | | support the pathologic diagnosis. GROSS DESCRIPTION: The | | | specimen, labeled "MB, excision of right lower lip lesion," is | | | received in formalin and consists of 1.3 x 0.7 x 0.4 cm unoriented | | | portion of skin. The skin surface is pink-goldstein and smooth. The | | | specimen is inked, sectioned and entirely submitted in cassette (A1). | | | FB (under the direct supervision of a pathologist) The Gross | | | Description was prepared using a voice recognition system. The | | | report was reviewed for accuracy; however, sound-alike word errors, | | | addition and/or deletions may occur. If there is any question about | | | this report, please contact Client Services. PERFORMING | | | LABORATORY: The technical component was performed by [facility] | | | Diagnostics, [address] [facility] [address] (Tray Server: | | | Constance Palomares MD; CLIA# [id number]). Professional interpretation was | | | performed by [facility], [facility], [address] [place] [address] | | | [place] [address] [address] (Tray Server: Devin | | | Talya Mercado MD; CLIA# [id number]). Diagnostician: Devin Mercado | | | Pathologist Electronically Signed 06/13/2018 | | + + + + +---------+ [...]
--- OUTSIDE RECORDS SUMMARY | ~2020-02-25 | XMS | Encounter Summary ---
Demographics + + + | Address | [address] [facility] [facility]. | | | [place] [address] | + + + | Home Phone | | + + + | Preferred Language | Unknown | + + + | Marital Status | | + + + | Druze Affiliation | Unknown | + + + | Race | White | + + + | Ethnic Group | Not or | + + + Author + + + | Author | [facility] | | | and [place] | + + + | Organization | [facility] | | | [...] Team Providers + +------+ + | Care Gin Pole Operator Name | Role | Phone | + +------+ + | Peter Phillips MD | PCP | | + +------+ + Encounter Details +--------+ + + + + | Date | Type | Department | Care Team | Description | +--------+ + + + + | 12/01/ | Orders Only | [facility] [place] | Naveed Adams MD | Neoplasm of | | 2020 | | OTOLARYNGOLOGY [address] | [address] | uncertain behavior | | | | [address] | [address] [place], [place] | of skin (Primary Dx) | | | | [place], [place] | [address] | | | | | [address] | | | | | | [phone] | | | +--------+ + + + [...] [place] | | | | | | [address] | | | | | | | | +--------+---------+ + + + documented as of this encounter Procedures + +--------+ + + + | Procedure Name | Priori | Date/Time | Associated Diagnosis | Comments | | | ty | | | | + +--------+ + + + | SURGICAL PATHOLOGY | Routin | 12/02/2019 | Neoplasm of | Results for this | | EXAM | e | 12:00 AM | uncertain behavior | procedure are in the | | | | PDT | of skin | results section. | + +--------+ + + + documented in this encounter Results Surgical Pathology Exam (12/02/2019 12:00 AM PDT) + + | Specimen | + + | Tissue - Entire | | forehead (body | | structure) | + + + + + | Narrative | Performed At | + + + | SPECIMEN(S): A RIGHT FOREHEAD SPECIMEN(S): B LEFT ARM SPECIMEN | [facility] | | SOURCE: A. RIGHT FOREHEAD B. LEFT ARM CLINICAL HISTORY: D48.5 | [facility] | | (neoplasm of uncertain behavior of skin) FINAL PATHOLOGIC | | | DIAGNOSIS: A. Skin, right forehead: - Seborrheic keratosis. B. 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 - Maximum tumor dimension: Approximately 8 mm. | | | - Depth of tumor invasion: 1 mm. - Peripheral margin: Free of | | | tumor by 0.5 mm. - Deep margins: Free of tumor by approximately 2 | | | mm. J[facility]:C2NR MICROSCOPIC EXAMINATION: Histologic sections | | | of all submitted blocks are examined by light microscopy. These | | | findings, together with the gross examination, support the pathologic | | | diagnosis. Immunostains are performed on block (B1) and show the | | | following: - CK5: Positive in tumor cells. - P63: Positive in | | | tumor nuclei. [facility] GROSS DESCRIPTION: Two specimens are | | | received in two containers, labeled "Naomi Fernandez." A. The | | | specimen, labeled "Naomi Fernandez, excision of right forehead skin | | | lesion," is received in formalin and consists of a 0.6 x 0.5 x 0.4 cm | | | unoriented portion of skin. The skin surface is pink and slightly | | | roughened. The specimen is inked, bisected and entirely submitted in | | | cassette (A1). B. The specimen, labeled "Naomi Fernandez, excision | | | of left arm skin lesion," is received in formalin and consists of a | | | 1.6 x 0.9 x 0.4 cm unoriented skin ellipse. The skin surface is pale | | | pink and smooth with a 0.8 x 0.7 cm pink-red ulcerated lesion. The | | | specimen is inked, sectioned and entirely submitted in cassette (B1). | | | FB (under the direct supervision of a pathologist) The Gross | | | Description was prepared using a voice recognition system. The | | | report was reviewed for accuracy; however, sound-alike word errors, | | | addition and/or deletions may occur. If there is any question | | | about this report, please contact Client Services. ADDITIONAL | | | NOTES: Immunohistochemical and/or in situ hybridization studies were | | | performed on this case with the appropriate positive controls that | | | react as expected. This test was developed and its performance | | | characteristics determined by [facility]. It has not been | | | cleared or approved by the U.S. Food and Drug Administration. The | | | FDA has determined that such clearance or approval is not necessary. | | | This test is used for clinical purposes. It should not be regarded | | | as investigational or for research. [facility] is certified | | | under the Clinical Laboratory Improvement Amendments of 1988 (CLIA) | | | as qualified to perform high complexity clinical laboratory testing. | | | PERFORMING LABORATORY: The technical component was performed by | | | [facility], [address] [place] [id number] (Medical | | | Director: Constance Palomares MD; CLIA# [id number]). Professional | | | interpretation was performed by [facility], [place] | | | [facility], [address] [place] [address] | | | [id number] (Ophthalmology Surgical Technician: Erick Carbone M.D.). Diagnostician: | | | Erick Carbone MD Pathologist Electronically Signed 12/07/2019 | | | | | + + [...]
--- OUTSIDE RECORDS SUMMARY | ~2020-02-25 | XMS | Encounter Summary ---
Demographics + + + | Address | [address] [facility]. | | | [place] [address] | + + + | Home Phone | | + + + | Preferred Language | Unknown | + + + | Marital Status | | + + + | Sabianist Affiliation | Unknown | + + + | Race | White | + + + | Ethnic Group | Not or | + + + Author + + + | Author | [facility] | | | and [place] | + + + | Organization | [facility] | | [...] Team Providers + +------+ + | Care Mechanical Maintenance Instructor Name | Role | Phone | + +------+ + | Peter Phillips MD | PCP | | + +------+ + Encounter Details +--------+ + + + + | Date | Type | Department | Care Team | Description | +--------+ + + + + | 04/29/ | Orders Only | [facility] [place] [facility] | Peter Phillips, | Impaired fasting | | 2018 | | SERVICE CENTER | [address] | glucose | | | | [address] | [place], [place] | | | | | [address] [place] | [address] | | | | | [place] [address] | | | | | | [phone] | | | +--------+ + + + [...] | | | | | [address] | | | | | | [address] | | | | | | | | +--------+---------+ + + + documented as of this encounter Procedures + +--------+ + + + | Procedure Name | Priori | Date/Time | Associated Diagnosis | Comments | | | ty | | | | + +--------+ + + + | HEMOGLOBIN A1C | Add-On | 04/28/2018 | Impaired fasting | Results for this | | | | 12:40 PM | glucose | procedure are in the | | | | PST | | results section. | + +--------+ + + + documented in this encounter Results Hemoglobin A1C (04/28/2018 12:40 PM PST) + +-------+ + + + | Component | Value | Ref Range | Performed | Pathologist | | | | | At | Signature | + +-------+ + + + | Hemoglobin | 5.6 | 4.3 - 6.0 % | [facility] | | | A1c | | | [facility] | | | | | | MEDICAL | | | | | | CENTER - | | | | | | LABORATORY | | + +-------+ + + + | Estimated | 114 | mg/dL | [facility] | | | Average | | | [facility] | | | Glucose | | | MEDICAL | | | [...] + + + + + | [facility]. | [address] | [place] | [phone] | | [facility] | | [address] | | | - LABORATORY | | | | + + + + + documented in this encounter Visit Diagnoses + + | Diagnosis | + + | Impaired fasting glucose | + + documented in this encounter"
--- OUTSIDE RECORDS SUMMARY | ~2020-02-25 | XMS | Encounter Summary ---
Demographics + + + | Address | [address] [facility]. | | | [place] [address] | + + + | Home Phone | | + + + | Preferred Language | Unknown | + + + | Marital Status | | + + + | Adventism Affiliation | Unknown | + + + | Race | White | + + + | Ethnic Group | Not or | + + + Author + + + | Author | [facility] | | | and [place] | + + + | Organization | [facility] | | | and [...] Team Providers + +------+ + | Care Communications Advisor Name | Role | Phone | + +------+ + | Peter Phillips MD | PCP | | + +------+ + Reason for Visit +---------+--------+ + | Reason | Onset | Comments | | | Date | | +---------+--------+ + | Results | 04/30/ | | | | 2017 | | +---------+--------+ + Encounter Details +--------+ + + + + | Date | Type | Department | Care Team | Description | +--------+ + + + + | 04/30/ | Telephone | [facility] | Peter Phillips, | Results | | 2018 | | [facility] [place] | [address] | | | | | [address] | [place] | | | | | [place] | [id number] | | | | | [address] | | | | | | [phone] | | | +--------+ + + + [...] this encounter Miscellaneous Notes Telephone Encounter - Claudine Fritz RN - 05/01/2018 9:23 AM PSTPatient returns call. Relayed Dr. Phillips's message. Patient verbalized understanding. elephone Encounter - Peter Phillips MD - 04/30/2018 6:01 PM PSTVoicemail left. Advised to check mychart. Hi Ms Fernandez, Mando I missed you. I left a voicemail. Your labs are good. 1. Uric Acid: Your gout level is terrific. I believe you have not had a gout flare in ye ars. I think it would be safe to decrease your allopurinol to 1/2 tablet (150 mg) daily. Angelic melo let us know if you feel comfortable with this plan. 2. Your blood sugar (glucose) was a touch high. But I suspect it was a false positive bec ause your hemoglobin A1c (which measures average blood sugar levels over the past 2-3 months ) was solidly in a normal range. 3. Your kidney function (eGFR) was just a touch low. This is not uncommon in our 80's. I am not concerned by it. I recommend you continue to keep your blood pressure well controll ed and stay well hydrated (a good goal is to try and urinate close to 2 liters per day). 4. TSH: Your thyroid level is in a normal range. Please continue levothyroxine as you are doing. 5. CBC: Your blood counts are normal. 6. Lipid panel: Your cholesterol and LDL (bad cholesterol) are both a touch high. But yo ur HDL (good cholesterol) is fantastic. I recommend continuing pravastatin 40 mg as you are doing. Continue to work on diet and exercise to help improve it. Things that can help imp rove the cholesterol are: 1. Aim for 150 minutes of brisk exercise per week 2. Try to incorporate the Mediterranean Diet into your meals - it is effective at improvi ng cholesterol and reducing the risk of heart disease. You do NOT need to buy a Mediterran maddy Diet cookbook, just try to make sure your meals incorporate some of the basic components : - Eating primarily plant-based foods, such as fruits and vegetables, legumes and nuts ( ~1 handful of unsalted, uncandied nuts several days per week) - Aim for at least 1-2 servings of seafood per week (ideally fish not shellfish) - use olive oil instead of butter - limit cheese/butter/red meat/processed foods/fast foods - limit wine to no more than 5 ounces daily for women of all ages and men older than age 6 5 and no more than 10 ounces daily for younger men. More than this may increase the risk of health problems, including increased risk of certain types of cancer. If you have a persona l or family history of alcohol abuse, or if you have heart or liver disease, refrain from dr inking wine or any other alcohol. The [facility] has a helpful website for more information: http://www.[employer].Linekong/a [facility]/mediterranean-diet/BZ40368. Thank you again for the chocolates. I shared them with coworkers and my kids each got one. They were beautiful and delicious. Please let us know if you have any questions or concerns. Hope all is well, Francisco Phillips MD documented in this e ncounter Plan of Treatment +--------+---------+ + + + | Date | Type | Specialty | Care Team | Description | +--------+---------+ + + + | 03/03/ | Office | Otolaryngology | Naveed Adams MD | | | 2020 | Visit | | [address] | | | | | | [address] [place] | | | | | | [address] | | | | | | | | +--------+---------+ + + + documented as of this encounter Visit Diagnoses Not on filedocumented in this encounter"
--- OUTSIDE RECORDS SUMMARY | ~2020-02-25 | XMS | Encounter Summary ---
Demographics + + + | Address | [address] [facility]. | | | [place] [address] | + + + | Home Phone | | + + + | Preferred Language | Unknown | + + + | Marital Status | | + + + | Muslim Affiliation | Unknown | + + + | Race | White | + + + | Ethnic Group | Not or | + + + Author + + + | Author | [facility] | | | and [place] | + + + | Organization | [facility] | | | [...] Team Providers + +------+ + | Care Gamb Cutter Name | Role | Phone | + +------+ + | Peter Phillips MD | PCP | | + +------+ + Reason for Visit + + + | Reason | Comments | + + + | Follow-up | 6 month follow up | + + + | Hypertension | | + + + Encounter Details +--------+---------+ + + + | Date | Type | Department | Care Team | Description | +--------+---------+ + + + | 11/10/ | Office | [facility] | Peter Phillips, | Chronic gout of left | | 2019 | Visit | [facility] [place] | [address] | ankle, unspecified | | | | [address] | [place] | cause (Primary Dx); | | | | [place] | [address] | Essential | | | | [address] | | hypertension; | | | | [phone] | | Impaired fasting | | | | | | glucose; Basal cell | | | | | | carcinoma (BCC) of | | | | | | skin of lip; | | | | | | Hypothyroidism, | | | | | | unspecified type; | | | | | | Hyperlipidemia, | | | | | | unspecified | | | | | | hyperlipidemia type | +--------+---------+ + + + Social History [...] + + + | Blood Pressure | 124/74 | 11/10/2018 1:03 PM | | | | | PDT | | + + + + + | Pulse | 63 | 11/10/2018 1:03 PM | | | | | PDT | | + + + + + | Temperature | 36.7 C (98 F) | 11/10/2018 1:03 PM | | | | | PDT | | + + + + + | Respiratory Rate | 16 | 11/10/2018 1:03 PM | | | | | PDT | | + + + + + | Oxygen Saturation | 95% | 11/10/2018 1:03 PM | | | | | PDT | | + + + + + | Inhaled Oxygen | - | - | | | Concentration | | | | + + + + + | Weight | 65.9 kg (145 lb 4.5 | 11/10/2018 1:03 PM | | | | oz) | PDT | | + + + + + | Height | - | - | | + + + + + | Body Mass Index | 28.37 | 10/16/2018 10:10 AM | | | | | PDT | | + + + + + documented in this encounter Patient Instructions Patient Instructions Peter Phillips MD - 11/10/2018 1:30 PM PDT Keep up the great work! DECREASE the allopurinol to 50 mg daily (100 mg pills have been ordered). You will cut the se in half. Your blood pressure is terrific. If it continues to be well controlled (less than 130/80) then I suspect we can decrease your amlodipine. Please stop by the lab for blood work after being on the new dose of allopurinol for 2-4 we eks. You do NOT have to fast. Lab Hours: Saturday-Saturday 7 am to 5:30 pm [place] [address] [place] [address] Saturdays & Sundays 8 am to noon [facility] (you do not have to see a doctor, just tell them you are there for l abs) documented in this encounter Progress Notes Peter Phillips MD - 11/10/2018 1:30 PM PDTFormatting of this note might be different fr om the original. Subjective: Patient ID: Naomi Fernandez is a 83 y.o. female who is here today for Follow-up (6 month follo w up) and Hypertension HPI She wonders if she can stop allopurinol. She is taking 150 mg daily. She has not had a go ut flare in years. She walks daily 20-60 minutes. She is taking amlodipine, carvedilol, pravastatin as prescr ibed. Occasional swelling in ankles. No CP, MENDIOLA, orthopnea. She has surgery scheduled for lesion on right side of nose. 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 Healed well without concerns. No signs of recurrence at the se sights. She is considering renting a home in [place], [place] for the winter months. Her 90 yo aunt live s in [place]. Patient's medications, allergies, past medical, surgical, social and family histories were obtained and reviewed as appropriate. Review of Systems Objective: BP 124/74 | Pulse 63 | Temp 36.7 C (98 F) (Temporal) | Resp 16 | Wt 65.9 kg (145 lb 4.5 oz) | SpO2 95% | BMI 28.37 kg/m Physical Exam Constitutional: Very pleasant, well developed, NAD Cardiovascular: Normal rate, regular rhythm, normal heart sounds and intact distal pulses. Exam reveals no gallop and no friction rub. No murmur heard. Pulmonary/Chest: Breath sounds normal. No respiratory distress. She has no wheezes. She has no rales. Musculoskeletal: She exhibits no edema. Skin: Pearly papule of right side of nose. Lip well healed - small scar, no signs of recurrence Left neck posterior to ear - small scar, no signs of recurrence Assessment & Plan: 1. Chronic gout of left ankle, unspecified cause: - Decrease allopurinol - Recheck labs in 2-4 weeks. If uric acid less than 6, will stop - allopurinol (ZYLOPRIM) 100 mg tablet; Take 0.5 tablets by mouth Daily. To prevent gout D ispense: 15 tablet; Refill: 0 - Uric Acid; Future 2. Essential hypertension - Consider decreasing amlodipine if still well controlled on recheck - Continue amlodipine, Coreg 3. Impaired fasting glucose - Basic Metabolic Panel; Future - Hemoglobin A1C; Future 4. Basal cell carcinoma (BCC) of skin of lip: Transected laterally. No signs of recurrenc e. - Will monitor FU: 3-6 months (prior to trip) Francisco Phillips MD documented in this e ncounter Plan of Treatment +--------+---------+ + + + | Date | Type | Specialty | Care Team | Description | +--------+---------+ + + + | 03/03/ | Office | Otolaryngology | Naveed Adams MD | | | 2020 | Visit | | [address] | | | | | | [address] [place] | | | | | | [address] | | | | | | | | +--------+---------+ + + + documented as of this encounter Results Hemoglobin A1C (04/22/2019 10:50 AM PST) + +-------+ + + + | Component | Value | Ref Range | Performed | Pathologist | | | | | At | Signature | + +-------+ + + + | Hemoglobin | 5.7 | 4.3 - 6.0 % | [facility] | | | A1c | | | [facility] | | | | | | MEDICAL | | | | | | CENTER - | | | | | | LABORATORY | | + +-------+ + + + | Estimated | 117 | mg/dL | [facility] | | | [...] | + + + + + | [facility] | [address] | [place] | [phone] | | [facility] | | [address] | | | - LABORATORY | | | | + + + + + Uric Acid (04/22/2019 10:50 AM PST) + +---------+ + + + | Component | Value | Ref Range | Performed | Pathologist | | | | | At | Signature | + +---------+ + + + | Uric Acid | 6.9 (H) | 2.6 - 6.2 mg/dL | [facility] | | | | | | [facility] | | | | | | [facility] | | | | | | [facility] | | | | | | LABORATORY | | + +---------+ + + + + + | Specimen | + + | Blood | + + + + + + + | Performing | Address | City/State/Zipcode | Phone Number | | Organization | | | | + + + + + | [facility] | [address] | [place] | [phone] | | [facility] | | [address] | | | [facility] | | | | + + + + + documented in this encounter Visit Diagnoses + + | Diagnosis | + + | Chronic gout of left ankle, unspecified cause - Primary | + + | Essential hypertension Unspecified essential hypertension | + + | Impaired fasting glucose | + + | Basal cell carcinoma (BCC) of skin of lip | + + | Hypothyroidism, unspecified type | + + | Hyperlipidemia, unspecified hyperlipidemia type | + + documented in this encounter"
--- OUTSIDE RECORDS SUMMARY | ~2020-02-25 | XMS | Encounter Summary ---
Demographics + + + | Address | [address] [facility]. | | | [place] [address] | + + + | Home Phone | | + + + | Preferred Language | Unknown | + + + | Marital Status | | + + + | Yazidism Affiliation | Unknown | + + + | Race | White | + + + | Ethnic Group | Not or | + + + Author + + + | Author | [facility] | | | and [place] | + + + | Organization | [facility] | | [...] Team Providers + +------+ + | Care Binding Cementer French Cord Name | Role | Phone | + +------+ + | Peter Phillips MD | PCP | | + +------+ + Reason for Visit +---------+--------+ + | Reason | Onset | Comments | | | Date | | +---------+--------+ + | Testing | 04/29/ | | | | 2018 | | +---------+--------+ + Encounter Details +--------+ + + + + | Date | Type | Department | Care Team | Description | +--------+ + + + + | 04/29/ | Telephone | [facility] | Peter Phillips, | Testing | | 2018 | | [facility] [place] | [address] | | | | | [address] | [place] | | | | | [place] | [id number] | | | | | [address] | | | | | | [phone] | | | +--------+ + + + [...] Telephone Encounter - Marj Hernandez LPN - 04/29/2018 7:52 AM PSTSpoke with optical lab technician. scar will get the test added. elephone Encounter - Marj Hernandez LPN - 04/29/2018 7:51 AM PST----- Message fro m Peter Phillips MD sent at 04/28/2018 18:19 PST ----- Will you please ask the lab to add on an A1c. Thanks! Francisco Phillips MD documented in this encounter Plan of Treatment +--------+---------+ + + + | Date | Type | Specialty | Care Team | Description | +--------+---------+ + + + | 03/03/ | Office | Otolaryngology | Naveed Adams MD | | | 2019 | Visit | | [address] | | | | | | [address] [place] | | | | | | [address] | | | | | | | | +--------+---------+ + + + documented as of this encounter Visit Diagnoses Not on filedocumented in this encounter"
--- OUTSIDE RECORDS SUMMARY | ~2020-02-25 | XMS | Encounter Summary ---
Demographics + + + | Address | [address] [facility] [address]. | | | [place] [address] | + + + | Home Phone [...] Team Providers + +------+ + | Care Emergency Detail Driver Name | Role | Phone | + +------+ + | Peter Phillips MD | PCP | | + +------+ + Reason for Visit Evaluate & Treat (Routine) +--------+ + + + + + | Status | Reason | Specialty | Diagnoses / | Referred By | Referred To | | | | | Procedures | Contact | Contact | +--------+ + + + + + | Closed | Specialty | Otolaryngolog | Diagnoses | [facility], | [facility] | | Services | y | Neoplasm of | Naveed Vera MD | Otolaryngolog | | | Required | | uncertain | [address] | [address] | | | | | behavior of | [address] | | | | | skin | [place], | [address] [place] | | | | | Procedures | [place] [address] | [place] | | | | | HI EXC SKIN | Phone: | [phone] | | | | | BENIG | [phone] | Phone: | | | | | 1.1-2CM | Fax: | [phone] | | | | | FACE,FACIAL | [phone] | Fax: | | | | | Appointment | | [phone] | | | | | | | | | | | | Date:11/13/18 | | | | | | | IN OFFICE | | | | | | | PROCEDURE | | | +--------+ + + + + + Encounter Details +--------+---------+ + + + | Date | Type | Department | Care Team | Description | +--------+---------+ + + + | 11/13/ | Office | [facility] | Naveed Adams MD | Neoplasm of | | 2019 | Visit | OTOLARYNGOLOGY [address] | [address] | uncertain behavior | | | | [address] | [address] [place], [place] | of skin (Primary Dx) | | | | [place], [place] | [address] | | | | | [address] | | | | | | [phone] | | | +--------+---------+ + + + [...] encounter Progress Notes Naveed Adams MD - 11/13/2018 11:30 AM PDTPre-op diagnosis: Right nasal skin lesion of unc ertain diagnosis. Postoperative diagnosis: Same Findings: Patient has an elevated irregular growth on the right side of the nose that is 7 mm in diameter. Procedure: After the area had been treated with some topical Xylocaine the area was injecte d with 1% Xylocaine with epinephrine a vertical elliptical incision was then made around the entire lesion and full-thickness through the skin. Entire lesion was removed and sent for path examination. The wound was then closed with interrupted 6-0 nylon suture and she did t o fair amount of bleeding and appears to be on aspirin. Antibiotic ointment was applied to the wound. Plan: Patient will have her sutures removed in 1 week's time. The specimen was sent for [facility] examination. documente d in this encounter Plan of Treatment +--------+---------+ + + + | Date | Type | Specialty | Care Team | Description | +--------+---------+ + + + | 03/03/ | Office | Otolaryngology | Naveed Adams MD | | | 2020 | Visit | | [address] | | | | | | [address] [place] | | | | | | [address] | | | | | | | | +--------+---------+ + + + documented as of this encounter Procedures + +--------+ + + + | Procedure Name | Priori | Date/Time | Associated Diagnosis | Comments | | | ty | | | | + +--------+ + + + | SURGICAL PATHOLOGY | Routin | 11/13/2018 | | Results for this | | EXAM | e | 12:00 AM | | procedure are in the | | | | PDT | | results section. | + +--------+ + + + documented in this encounter Results Surgical Pathology Exam (11/13/2018 12:00 AM PDT) + + | Specimen | + + | | + + + + + | Narrative | Performed At | + + + | SPECIMEN(S): A RIGHT NASAL SPECIMEN SOURCE: A. RIGHT NASAL | [facility] | | CLINICAL HISTORY: Excision of right nasal lesion. FINAL | [facility] | | PATHOLOGIC DIAGNOSIS: Skin, right nasal area, biopsy: - Basal cell | | | carcinoma with sclerosing and squamous features. - Tumor size: | | | 0.45 x 0.45 x 0.25 cm (L x W x D). - Invades into reticular | | | dermis. - All margins of excision free of neoplasm. - Closest to | | | neoplasm: One lateral margin at 0.1 mm from neoplasm. | | | LJA:[facility]:C1NR MICROSCOPIC EXAMINATION: Histologic sections of all | | | submitted blocks are examined by light microscopy. These findings, | | | together with the gross examination, support the pathologic diagnosis. | | | GROSS DESCRIPTION: The specimen, labeled "MB, excision of a | | | right nasal lesion," is received in formalin and consists of a 1.1 x | | | 0.6 x 0.3 cm ellipse of goldstein-white granular skin with a central 0.5 x | | | 0.5 cm goldstein, ill-defined papule. Specimen is entirely submitted in | | | cassette (A1). AM (under the direct supervision of a pathologist) [...] component was performed by | | | [facility], [address] [place] [id number] (Medical | | | Director: Constance Palomares MD; CLIA# [id number]). Professional | | | interpretation was performed [facility] | | [facility], [address] [address] | | | (Relay Operator: Devin Mercado MD; CLIA# [id number]). | | | Diagnostician: Devin Mercado MD Pathologist Electronically | | | Signed 11/17/2018 | | + + + + +---------+ [...]
--- OUTSIDE RECORDS SUMMARY | ~2020-02-25 | XMS | Encounter Summary ---
Demographics + + + | Address | [address]. | | | [place] [address] | + + + | Home Phone | | + + + | Preferred Language | Unknown | + + + | Marital Status | | + + + | Religion Affiliation | Unknown | + + + | Race | White | + + + | Ethnic Group | Not or | + + + Author + + + | Author | [facility] | | | and [place] | + + + | Organization | [facility] | | | [...] Team Providers + +------+ + | Care Human Services Instructor Name | Role | Phone | + +------+ + PCP | Unavailable | + +------+ + Encounter Details +--------+ + + + + | Date | Type | Department | Care Team | Description | +--------+ + + + + | 12/13/ | Abstract | [facility] | Ritchiemaude Lul | | | 2014 | | [address] | MD Marcell[address] | | | | | [place], | [address] [place] | | | | | [place] [address] | [place] [address] | | | | | [phone] | [phone] | | | | | | | [...] | | | | | [address] | | | | | | [address] | | | | | | | | +--------+---------+ + + + documented as of this encounter Procedures + +--------+ + + + | Procedure Name | Priori | Date/Time | Associated Diagnosis | Comments | | | ty | | | | + +--------+ + + + | LIPID PANEL | Routin | 10/28/2014 | | Results for this | | | e | | | procedure are in the | | | | | | results section. | + +--------+ + + + | EXTERNAL LAB: FREE | Routin | 10/27/2014 | | Results for this | | THYROXINE INDEX | e | | | procedure are in the | | | | | | results section. | + +--------+ + + + | EXTERNAL LAB: BUN | Routin | 10/27/2014 | | Results for this | | | e | | | procedure are in the | | | | | | results section. | + +--------+ + + + | EXTERNAL LAB: | Routin | 10/27/2014 | | Results for this | | GLUCOSE | e | | | procedure are in the | | | | | | results section. | + +--------+ + + + | EXTERNAL LAB: URIC | Routin | 10/27/2014 | | Results for this | | ACID | e | | | procedure are in the | | | | | | results section. | + +--------+ + + + | EXTERNAL LAB: ALT | Routin | 10/27/2014 | | Results for this | | | e | | | procedure are in the | | | | | | results section. | + +--------+ + + + | EXTERNAL LAB: AST | Routin | 10/27/2014 | | Results for this | | | e | | | procedure are in the | | | | | | results section. | + +--------+ + + + | EXTERNAL LAB: | Routin | 10/27/2014 | | Results for this | | ALKALINE PHOSPHATASE | e | | | procedure are in the | | | | | | results section. | + +--------+ + + + | EXTERNAL LAB: | Routin | 10/27/2014 | | Results for this | | BILIRUBIN, TOTAL | e | | | procedure are in the | | | | | | results section. | + +--------+ + + + | EXTERNAL LAB: | Routin | 10/27/2014 | | Results for this | | ALBUMIN | e | | | procedure are in the | | | | | | results section. | + +--------+ + + + | EXTERNAL LAB: | Routin | 10/27/2014 | | Results for this | | PROTEIN, TOTAL | e | | | procedure are in the | | | | | | results section. | + +--------+ + + + | EXTERNAL LAB: | Routin | 10/27/2014 | | Results for this | | CALCIUM | e | | | procedure are in the | | | | | | results section. | + +--------+ + + + | EXTERNAL LAB: CARBON | Routin | 10/27/2014 | | Results for this | | DIOXIDE | e | | | procedure are in the | | | | | | results section. | + +--------+ + + + | EXTERNAL LAB: | Routin | 10/27/2014 | | Results for this | | CHLORIDE | e | | | procedure are in the | | | | | | results section. | + +--------+ + + + | EXTERNAL LAB: | Routin | 10/27/2014 | | Results for this | | POTASSIUM | e | | | procedure are in the | | | | | | results section. | + +--------+ + + + | EXTERNAL LAB: SODIUM | Routin | 10/27/2014 | | Results for this | | | e | | | procedure are in the | | | | | | results section. | + +--------+ + + + | EXTERNAL LAB: | Routin | 10/27/2014 | | Results for this | | VITAMIN D, | e | | | procedure are in the | | 25-HYDROXY | | | | results section. | + +--------+ + + + | EXTERNAL LAB: CBC | Routin | 10/27/2014 | | Results for this | | | e | | | procedure are in the | | | | | | results section. | + +--------+ + + + | EXTERNAL LAB: TSH | Routin | 10/27/2014 | | Results for this | | | e | | | procedure are in the | | | | | | results section. | + +--------+ + + + | EXTERNAL LAB: | Routin | 10/27/2014 | | Results for this | | TRIGLYCERIDES | e | | | procedure are in the | | | | | | results section. | + +--------+ + + + | EXTERNAL LAB: | Routin | 10/27/2014 | | Results for this | | CHOLESTEROL, HDL | e | | | procedure are in the | | | | | | results section. | + +--------+ + + + | EXTERNAL LAB: | Routin | 10/27/2014 | | Results for this | | CHOLESTEROL, TOTAL | e | | | procedure are in the | | | | | | results section. | + +--------+ + + + | EXTERNAL LAB: | Routin | 10/27/2014 | | Results for this | | CHOLESTEROL, LDL | e | | | procedure are in the | | | | | | results section. | + +--------+ + + + | EXTERNAL LAB: EGFR | Routin | 10/27/2014 | | Results for this | | | e | | | procedure are in the | | | | | | results section. | + +--------+ + + + | EXTERNAL LAB: | Routin | 10/27/2014 | | Results for this | | CREATININE | e | | | procedure are in the | | | | | | results section. | + +--------+ + + + | CBC WITH | Routin | 10/27/2014 | | Results for this | | DIFFERENTIAL | e | | | procedure are in the | | | | | | results section. | + +--------+ + + + | HEMOGLOBIN A1C | Routin | 10/27/2014 | | Results for this | | | e | | | procedure are in the | | | | | | results section. | + +--------+ + + + | COMPREHENSIVE | Routin | 10/27/2014 | | Results for this | | METABOLIC PANEL | e | | | procedure are in the | | | | | | results section. | + +--------+ + + + documented in this encounter Results Lipid Panel (10/28/2014) + +---------+ + + + | Component | Value | Ref Range | Performed | Pathologist | | | | | At | Signature | + +---------+ + + + | VLDL | 16 | mg/dL | | | + +---------+ + + + | Chol/HDL | 2.7 | | | | | Ratio | | | | | + +---------+ + + + | Non HDL | 136 (A) | 130 | | | | Chol. | | | | | | (LDL+VLDL) | | | | | + +---------+ + + + + + | Specimen | + + | Blood specimen | | (specimen) | + + CBC with Differential (10/27/2014) + +-------+ + + + | Component | Value | Ref Range | Performed | Pathologist | | | | | At | Signature | + +-------+ + + + | MCH | 31.0 | pg | | | + +-------+ + + + | MCHC | 33.0 | % | | | + +-------+ + + + | % Basophils | 0.8 | % | | | + +-------+ + + + + + | Specimen | + + | Blood specimen | | (specimen) | + + External Lab: Vitamin D, 25-Hydroxy (10/27/2014) + +--------+ + + + | Component | Value | Ref Range | Performed | Pathologist | | | | | At | Signature | + +--------+ + + + | Vitamin D, | 27 (A) | 30 - 100 | EXTERNAL | | | 25-Hydroxy, | | | LAB | | | External | | | | | + +--------+ + + + + + | Specimen | + + | Blood specimen | | (specimen) | + + + + | Resulting Agency Comment | + + | [facility] | + + + +---------+ + + | Performing | Address | City/State/Zipcode | Phone Number | | Organization | | | | + +---------+ + + | EXTERNAL LAB | | | | + +---------+ + + External Lab: CBC (10/27/2014) + + + + + + | Component | Value | Ref Range | Performed | Pathologist | | | | | At | Signature | + + + + + + | WBC, | 6.7 | 4.5 - 11 | EXTERNAL | | | External | | | LAB | | + + + + + + | HGB, | 13.7 | 12 - 16 | EXTERNAL | | | External | | | LAB | | + + + + + + | HCT, | 41.3 | 35 - 45 | EXTERNAL | | | External | | | LAB | | + + + + + + | PLT, | 196 | 140 - 440 | EXTERNAL | | | External | | | LAB | | + + + + + + | Neutrophils | 66.1 | 39 - 80 | EXTERNAL | | | %, | | | LAB | | | External | | | | | + + + + + + | Lymphocytes | 22.2 (A) | 24 - 44 | EXTERNAL | | | %, | | | LAB | | | External | | | | | + + + + + + | Monocytes | 6.3 | 0 - 12 | EXTERNAL | | | %, External | | | LAB | | + + + + + + | Eosinophils | 4.6 | 0 - 6 | EXTERNAL | | | %, | | | LAB | | | External | | | | | + + + + + + | RBC, | 4.43 | 3.8 - 5.1 | EXTERNAL | | | External | | | LAB | | + + + + + + | MCV, | 93 | 81 - 99 | EXTERNAL | | | External | | | LAB | | + + + + + + | RDW, | 13.7 | 10.5 - 15 | EXTERNAL | | | External | | | LAB | | + + + + + + + + | Resulting Agency Comment | + + | [facility] | + + + +---------+ + + | Performing | Address | City/State/Zipcode | Phone Number | | Organization | | | | + +---------+ + + | EXTERNAL LAB | | | | + +---------+ + + Comprehensive Metabolic Panel (10/27/2014) + +-------+ + + + | Component | Value | Ref Range | Performed | Pathologist | | | | | At | Signature | + +-------+ + + + | Anion Gap | 12 | mmol/L | [facility] | | | | | | [facility] | | [facility] | | | | [facility] - | | | | | | [facility]ORY | | + +-------+ + + + | BUN/Creatin | 19.3 | | [facility] | | | ine Ratio | | | [facility] | | | | | | [facility] | | | | | | [facility] - | | | | | | LABORATORY | | + +-------+ + + + | Globulin | 2.7 | | [facility] | | | | [...] + + + + + | [facility] | [address] | [place] | [phone] | | [facility] | | [address], [facility] | | | - LABORATORY | | | | + + + + + Hemoglobin A1C (10/27/2014) + + + + + + | Component | Value | Ref Range | Performed | Pathologist | | | | | At | Signature | + + + + + + | Hemoglobin | 5.8Comment: Average | 5.7 - 6.4 % | EXTERNAL | | | A1c | glucose 120 | | LAB | | + + + + + + + + | Specimen | + + | Blood specimen | | (specimen) | + + + + | Resulting Agency Comment | + + | [facility] | + + + +---------+ + + | Performing | Address | City/State/Zipcode | Phone Number | | Organization | | | | + +---------+ + + | EXTERNAL LAB | | | | + +---------+ + + External Lab: Free Thyroxine Index (10/27/2014) + +-------+ + + + | Component | Value | Ref Range | Performed | Pathologist | | | | | At | Signature | + +-------+ + + + | Free | 1.06 | 0.71 - 1.7 | EXTERNAL | | | Thyroxine | | | LAB | | | Index, | | | | | | External | | | | | + +-------+ + + + + + | Resulting Agency Comment | + + | [facility] | + + + +---------+ + + | Performing | Address | City/State/Zipcode | Phone Number | | Organization | | | | + +---------+ + + | EXTERNAL LAB | | | | + +---------+ + + External Lab: BUN (10/27/2014) + +-------+ + + + | Component | Value | Ref Range | Performed | Pathologist | | | | | At | Signature | + +-------+ + + + | BUN, | 21 | 6 - 23 | EXTERNAL | | | External | | | LAB | | + +-------+ + + + + + | Resulting Agency Comment | + + | [facility] | + + + +---------+ + + | Performing | Address | City/State/Zipcode | Phone Number | | Organization | | | | + +---------+ + + | EXTERNAL LAB | | | | + +---------+ + + External Lab: Glucose (10/27/2014) + +---------+ + + + | Component | Value | Ref Range | Performed | Pathologist | | | | | At | Signature | + +---------+ + + + | Glucose, | 120 (A) | 70 - 100 | EXTERNAL | | | External | | | LAB | | + +---------+ + + + + + | Resulting Agency Comment | + + | [facility] | + + + +---------+ + + | Performing | Address | City/State/Zipcode | Phone Number | | Organization | | | | + +---------+ + + | EXTERNAL LAB | | | | + +---------+ + + External Lab: Uric Acid (10/27/2014) + +-------+ + + + | Component | Value | Ref Range | Performed | Pathologist | | | | | At | Signature | + +-------+ + + + | Uric Acid, | 5.4 | 2.3 - 6.8 | EXTERNAL | | | External | | | LAB | | + +-------+ + + + + + | Resulting Agency Comment | + + | [facility] | + + + +---------+ + + | Performing | Address | City/State/Zipcode | Phone Number | | Organization | | | | + +---------+ + + | EXTERNAL LAB | | | | + +---------+ + + External Lab: ALT (10/27/2014) + +-------+ + + + | Component | Value | Ref Range | Performed | Pathologist | | | | | At | Signature | + +-------+ + + + | ALT, | 11 | 7 - 52 | EXTERNAL | | | External | | | LAB | | + +-------+ + + + + + | Resulting Agency Comment | + + | [facility] | + + + +---------+ + + | Performing | Address | City/State/Zipcode | Phone Number | | Organization | | | | + +---------+ + + | EXTERNAL LAB | | | | + +---------+ + + External Lab: AST (10/27/2014) + +-------+ + + + | Component | Value | Ref Range | Performed | Pathologist | | | | | At | Signature | + +-------+ + + + | AST, | 14 | 13 - 39 | EXTERNAL | | | External | | | LAB | | + +-------+ + + + + + | Resulting Agency Comment | + + | [facility] | + + + +---------+ + + | Performing | Address | City/State/Zipcode | Phone Number | | Organization | | | | + +---------+ + + | EXTERNAL LAB | | | | + +---------+ + + External Lab: Alkaline Phosphatase (10/27/2014) + +-------+ + + + | Component | Value | Ref Range | Performed | Pathologist | | | | | At | Signature | + +-------+ + + + | ALP, | 69 | 30 - 128 | EXTERNAL | | | External | | | LAB | | + +-------+ + + + + + | Resulting Agency Comment | + + | [facility] | + + + +---------+ + + | Performing | Address | City/State/Zipcode | Phone Number | | Organization | | | | + +---------+ + + | EXTERNAL LAB | | | | + +---------+ + + External Lab: Bilirubin, Total (10/27/2014) + +-------+ + + + | Component | Value | Ref Range | Performed | Pathologist | | | | | At | Signature | + +-------+ + + + | Bilirubin, | 0.8 | 0 - 1.2 | EXTERNAL | | | Total, | | | LAB | | | External | | | | | + +-------+ + + + + + | Resulting Agency Comment | + + | [facility] | + + + +---------+ + + | Performing | Address | City/State/Zipcode | Phone Number | | Organization | | | | + +---------+ + + | EXTERNAL LAB | | | | + +---------+ + + External Lab: Albumin (10/27/2014) + +-------+ + + + | Component | Value | Ref Range | Performed | Pathologist | | | | | At | Signature | + +-------+ + + + | Albumin, | 4.2 | 3.5 - 5 | EXTERNAL | | | External | | | LAB | | + +-------+ + + + + + | Resulting Agency Comment | + + | [facility] | + + + +---------+ + + | Performing | Address | City/State/Zipcode | Phone Number | | Organization | | | | + +---------+ + + | EXTERNAL LAB | | | | + +---------+ + + External Lab: Protein, Total (10/27/2014) + +-------+ + + + | Component | Value | Ref Range | Performed | Pathologist | | | | | At | Signature | + +-------+ + + + | Protein, | 6.9 | 6 - 8 | EXTERNAL | | | Total, | | | LAB | | | External | | | | | + +-------+ + + + + + | Resulting Agency Comment | + + | [facility] | + + + +---------+ + + | Performing | Address | City/State/Zipcode | Phone Number | | Organization | | | | + +---------+ + + | EXTERNAL LAB | | | | + +---------+ + + External Lab: Calcium (10/27/2014) + +-------+ + + + | Component | Value | Ref Range | Performed | Pathologist | | | | | At | Signature | + +-------+ + + + | Calcium, | 10.1 | 8.4 - 10.2 | EXTERNAL | | | External | | | LAB | | + +-------+ + + + + + | Resulting Agency Comment | + + | [facility] | + + + +---------+ + + | Performing | Address | City/State/Zipcode | Phone Number | | Organization | | | | + +---------+ + + | EXTERNAL LAB | | | | + +---------+ + + External Lab: Carbon Dioxide (10/27/2014) + +-------+ + + + | Component | Value | Ref Range | Performed | Pathologist | | | | | At | Signature | + +-------+ + + + | Carbon | 25 | 19 - 31 | EXTERNAL | | | Dioxide, | | | LAB | | | External | | | | | + +-------+ + + + + + | Resulting Agency Comment | + + | [facility] | + + + +---------+ + + | Performing | Address | City/State/Zipcode | Phone Number | | Organization | | | | + +---------+ + + | EXTERNAL LAB | | | | + +---------+ + + External Lab: Chloride (10/27/2014) + +-------+ + + + | Component | Value | Ref Range | Performed | Pathologist | | | | | At | Signature | + +-------+ + + + | Chloride, | 106 | 95 - 112 | EXTERNAL | | | External | | | LAB | | + +-------+ + + + + + | Resulting Agency Comment | + + | [facility] | + + + +---------+ + + | Performing | Address | City/State/Zipcode | Phone Number | | Organization | | | | + +---------+ + + | EXTERNAL LAB | | | | + +---------+ + + External Lab: Potassium (10/27/2014) + +-------+ + + + | Component | Value | Ref Range | Performed | Pathologist | | | | | At | Signature | + +-------+ + + + | Potassium, | 4.0 | 3.6 - 5.1 | EXTERNAL | | | External | | | LAB | | + +-------+ + + + + + | Resulting Agency Comment | + + | [facility] | + + + +---------+ + + | Performing | Address | City/State/Zipcode | Phone Number | | Organization | | | | + +---------+ + + | EXTERNAL LAB | | | | + +---------+ + + External Lab: Sodium (10/27/2014) + +-------+ + + + | Component | Value | Ref Range | Performed | Pathologist | | | | | At | Signature | + +-------+ + + + | Sodium, | 139 | 132 - 143 | EXTERNAL | | | External | | | LAB | | + +-------+ + + + + + | Resulting Agency Comment | + + | [facility] | + + + +---------+ + + | Performing | Address | City/State/Zipcode | Phone Number | | Organization | | | | + +---------+ + + | EXTERNAL LAB | | | | + +---------+ + + External Lab: TSH (10/27/2014) + + + + + + | Component | Value | Ref Range | Performed | Pathologist | | | | | At | Signature | + + + + + + | TSH, | 0.964Comment: 3rd | 0.27 - 4.2 | EXTERNAL | | | External | generation | | LAB | | + + + + + + + + | Specimen | + + | Blood specimen | | (specimen) | + + + + | Resulting Agency Comment | + + | [facility] | + + + +---------+ + + | Performing | Address | City/State/Zipcode | Phone Number | | Organization | | | | + +---------+ + + | EXTERNAL LAB | | | | + +---------+ + + External Lab: Triglycerides (10/27/2014) + +-------+ + + + | Component | Value | Ref Range | Performed | Pathologist | | | | | At | Signature | + +-------+ + + + | Triglycerid | 78 | 30 - 150 | EXTERNAL | | | es, | | | LAB | | | External | | | | | + +-------+ + + + + + | Specimen | + + | Blood specimen | | (specimen) | + + + + | Resulting Agency Comment | + + | [facility] | + + + +---------+ + + | Performing | Address | City/State/Zipcode | Phone Number | | Organization | | | | + +---------+ + + | EXTERNAL LAB | | | | + +---------+ + + External Lab: Cholesterol, HDL (10/27/2014) + +-------+ + + + | Component | Value | Ref Range | Performed | Pathologist | | | | | At | Signature | + +-------+ + + + | HDL | 70.9 | 40 mg/dl | EXTERNAL | | | Cholesterol | | | LAB | | | , External | | | | | + +-------+ + + + + + | Specimen | + + | Blood specimen | | (specimen) | + + + + | Resulting Agency Comment | + + | [facility] | + + + +---------+ + + | Performing | Address | City/State/Zipcode | Phone Number | | Organization | | | | + +---------+ + + | EXTERNAL LAB | | | | + +---------+ + + External Lab: Cholesterol, Total (10/27/2014) + +---------+ + + + | Component | Value | Ref Range | Performed | Pathologist | | | | | At | Signature | + +---------+ + + + | Cholesterol | 207 (A) | 200 mg/dl | EXTERNAL | | | , Total, | | | LAB | | | External | | | | | + +---------+ + + + + + | Specimen | + + | Blood specimen | | (specimen) | + + + + | Resulting Agency Comment | + + | [facility] | + + + +---------+ + + | Performing | Address | City/State/Zipcode | Phone Number | | Organization | | | | + +---------+ + + | EXTERNAL LAB | | | | + +---------+ + + External Lab: Cholesterol, LDL (10/27/2014) + +---------+ + + + | Component | Value | Ref Range | Performed | Pathologist | | | | | At | Signature | + +---------+ + + + | LDL | 121 (A) | 100 | EXTERNAL | | | Cholesterol | | | LAB | | | , Direct, | | | | | | External | | | | | + +---------+ + + + + + | Specimen | + + | Blood specimen | | (specimen) | + + + + | Resulting Agency Comment | + + | [facility] | + + + +---------+ + + | Performing | Address | City/State/Zipcode | Phone Number | | Organization | | | | + +---------+ + + | EXTERNAL LAB | | | | + +---------+ + + External Lab: eGFR (10/27/2014) + +--------+ + + + | Component | Value | Ref Range | Performed | Pathologist | | | | | At | Signature | + +--------+ + + + | eGFR, | 49 (A) | 60 - 99,999 | EXTERNAL | | | External | | | LAB | | + +--------+ + + + + + | Specimen | + + | Blood specimen | | (specimen) | + + + + | Resulting Agency Comment | + + | [facility] | + + + +---------+ + + | Performing | Address | City/State/Zipcode | Phone Number | | Organization | | | | + +---------+ + + | EXTERNAL LAB | | | | + +---------+ + + External Lab: Creatinine (10/27/2014) + +-------+ + + + | Component | Value | Ref Range | Performed | Pathologist | | | | | At | Signature | + +-------+ + + + | Creatinine, | 1.09 | 0.7 - 1.18 | EXTERNAL | | | External | | | LAB | | + +-------+ + + + + + | Specimen | + + | Blood specimen | | (specimen) | + + + + | Resulting Agency Comment | + + | [facility] | + + + +---------+ + + | Performing | Address | City/State/Zipcode | Phone Number | | Organization | | | | + +---------+ + + | EXTERNAL LAB | | | | + +---------+ + + documented in this encounter Visit Diagnoses Not on filedocumented in this encounter"
--- OUTSIDE RECORDS SUMMARY | ~2020-02-25 | XMS | Encounter Summary ---
Demographics + + + | Address | [address] | | | [place] [address] | + + + | Home Phone | | + + + | Preferred Language | Unknown | + + + | Marital Status | | + + + | Spiritism Affiliation | Unknown | + + + | Race | White | + + + | Ethnic Group | Not or | + + + Author + + + | Author | [facility] | | | and [place] | + + + | Organization | [facility] | | [...] Team Providers + +------+ + | Care Surveyor Oil Well Directional Name | Role | Phone | + +------+ + PCP | Unavailable | + +------+ + Encounter Details +--------+ + + + + | Date | Type | Department | Care Team | Description | +--------+ + + + + | 04/13/ | Orders Only | [facility] | Selena Barth, | | | 2013 | | CARDIOLOGY [address] | RN | | | | | [place], | | | | | | [place] [address] | | | | | | [phone] | | | +--------+ + + + [...] 2020 | Visit | | [address] | | | | | | [address] [place] | | | | | | [address] | | | | | | | | +--------+---------+ + + + documented as of this encounter Visit Diagnoses Not on filedocumented in this encounter"
--- OUTSIDE RECORDS SUMMARY | ~2020-02-25 | XMS | Encounter Summary ---
Demographics + + + | Address | [address] | | | [place] [address] | + + + | Home Phone | | + + + | Preferred Language | Unknown | + + + | Marital Status | | + + + | Christianity Affiliation | Unknown | + + + | Race | White | + + + | Ethnic Group | Not or | + + + Author + + + | Author | [facility] | | | and [place] | + + + | Organization | [facility] | | | [...] Team Providers + +------+ + | Care Technical Service Rep Name | Role | Phone | + +------+ + | Peter Phillips MD | PCP | | + +------+ + Reason for Visit + +--------+ + | Reason | Onset | Comments | | | Date | | + +--------+ + | Medication Refill | 04/10/ | | | | 2019 | | + +--------+ + Encounter Details +--------+--------+ + + + | Date | Type | Department | Care Team | Description | +--------+--------+ + + + | 04/10/ | Refill | [facility] | Peter Phillips, | Medication Refill | | 2019 | | [facility] [place] | [address] | | | | | [address] | [place] | | | | | [place] | [phone] | | | | | [address] | | | | | | [phone] | | | +--------+--------+ + + + [...] this encounter Miscellaneous Notes Telephone Encounter - Mya Martinez RN - 04/10/2019 2:23 PM PSTLast refill: 07/10 Last visit: 11/10/18. Sent note to front desk host to schedule patient for follow up appointment. No refill protocol, is it ok to refill this medication? elephone Sherry James - 04/10/2019 10:08 AM PSTMedication: indomethacin Strength: 25 mg Directions: as needed Pharmacy: [facility]/Fax: Fax Date of Last Refill: unknown Date of Last Visit: 11/10/18 Date of Next Visit: no future appointment Patient is out of medication documented in this encoun ter Plan of [...]
--- OUTSIDE RECORDS SUMMARY | ~2020-02-25 | XMS | Encounter Summary ---
Demographics + + + | Address | [address]. | | | [place] [address] | + + + | Home Phone | | + + + | Preferred Language | Unknown | + + + | Marital Status | | + + + | Presybeterian Affiliation | Unknown | + + + | Race | White | + + + | Ethnic Group | Not or | + + + Author + + + | Author | [facility] | | | and [place] | + + + | Organization | [facility] | | [...] Team Providers + +------+ + | Care Glass Crusher Name | Role | Phone | + +------+ + | Peter Phillips MD | PCP | | + +------+ + Reason for Visit + +--------+ + | Reason | Onset | Comments | | | Date | | + +--------+ + | Medication Refill | 06/19/ | | | | 2018 | | + +--------+ + Encounter Details +--------+--------+ + + + | Date | Type | Department | Care Team | Description | +--------+--------+ + + + | 06/19/ | Refill | [facility] | Peter Phillips, | Medication Refill | | 2019 | | [facility] | [address] | | | | | [address] | [place] | | | | | [place] | [id number] | | | | | [address] | | | | | | [phone] | | | +--------+--------+ + + + [...] this encounter Miscellaneous Notes Telephone Encounter - Omayra An RN - 06/19/2018 2:48 PM PSTNo refill protocol, is it ok to refill this medication? elephone Encount er - Ariana Disla - 06/19/2018 2:22 PM PSTMedication Allopurinol Dose 300 mg Quantity 90 Amount of medication remaining 10 days worth Last Refill February 2018 Pharmacy [facility] Last appointment 04/28/18 Next appointment 10/28/18 Caller Naomi, patient Patient called requesting prescription refill. Please call patient to advise, . documented in this enc ounter Plan of Treatment [...]
--- OUTSIDE RECORDS SUMMARY | ~2020-02-25 | XMS | Encounter Summary ---
Demographics + + + | Address | [address]. | | | [place] [address] | + + + | Home Phone | | + + + | Preferred Language | Unknown | + + + | Marital Status | | + + + | Amish Affiliation | Unknown | + + + | Race | White | + + + | Ethnic Group | Not or | + + + Author + + + | Author | [facility] | | | and [place] | + + + | Organization | [facility] | | | [...] Providers + +------+ + | Care Supervisor Claims Name | Role | Phone | + +------+ + PCP | Unavailable | + +------+ + Encounter Details +--------+ + + + + | Date | Type | Department | Care Team | Description | +--------+ + + + + | 04/11/ | Hospital | [facility] | | | | 2011 | Encounter | [facility] | | | | | | [address] | | | | | | [place], [place] | | | | | | [address] | | | | | | [phone] | | | +--------+ + + + [...] documented as of this encounter Miscellaneous Notes Op Feliz - Keegan Goodwin MD - 09/12/2011 8:05 AM PDTPatient Name: Naomi Feranndez Gender: Art Procedure Date: 09/12/2011 9:55 AM Date of : 1935 Age: 75 Admit Type: Outpatient Room: Endo Room 1 Note Status: Finalized Attending MD: Keegan Goodwin MD Procedure: Colonoscopy Providers: Keegan Goodwin MD, Svetlana An RN, Lynsey Garcia, Educational Assistant Teacher Referring MD: Man Farris MD Medicines: Midazolam 4 mg IV, Meperidine 100 mg IV Complications: No immediate complications. Procedure: - Prior to the procedure, a History and Physical was performed, and patient medications and allergies were reviewed. The patient is competent. The risks and benefits of the procedure and the sedation options and risks were discussed with the patient. All questions were answered and informed consent was obtained. Patient identification and proposed procedure were verified by the physician, the nurse and the master fire control technician in the endoscopy suite. Mental Status Examination: alert and oriented. Airway Examination: Mallampati Class I (tonsillar pillars visualized). Respiratory Examination: clear to auscultation. CV Examination: normal. Prophylactic Antibiotics: The patient does not require prophylactic antibiotics. Prior Anticoagulants: The patient has taken no previous anticoagulant or antiplatelet agents. ASA Grade Assessment: II - A patient with mild systemic disease. After reviewing the risks and benefits, the patient was deemed in satisfactory condition to undergo the procedure. The anesthesia plan was to use moderate sedation / analgesia (conscious sedation). Immediately prior to administration of medications, the patient was re-assessed for adequacy to receive sedatives. The heart rate, respiratory rate, oxygen saturations, blood pressure, adequacy of pulmonary ventilation, and response to care were monitored throughout the procedure. The physical status of the patient was re-assessed after the procedure. After I obtained informed consent, the scope was passed under direct vision. Throughout the procedure, the patient's blood pressure, pulse, and oxygen saturations were monitored continuously. The endoscope was introduced through the anus and advanced to the cecum, identified by appendiceal orifice without difficulty. The patient tolerated the procedure well. The quality of the bowel preparation was poor. Findings: Multiple large-mouthed diverticula were found in the recto-sigmoid colon. There was no evidence of diverticular bleeding. Multiple large-mouthed diverticula were found in the descending colon. There was no evidence of diverticular bleeding. Multiple large-mouthed diverticula were found in the transverse colon. There was no evidence of diverticular bleeding. Multiple large-mouthed diverticula were found in the ascending colon. There was no evidence of diverticular bleeding. The exam was otherwise without abnormality. Impression: - Diverticulosis in the recto-sigmoid colon. There was no evidence of diverticular bleeding. - Diverticulosis in the descending colon. There was no evidence of diverticular bleeding. - Diverticulosis in the transverse colon. There was no evidence of diverticular bleeding. - Diverticulosis in the ascending colon. There was no evidence of diverticular bleeding. - The examination was otherwise normal. Recommendation: - High fiber diet indefinitely. - Discharge patient to home (ambulatory). Keegan Goodwin MD Signed Date: 09/12/2011 10:30 AM Number of Addenda: 0 This report has been signed electronically. Note initiated on 09/12/2011 9:53 AM Scope Withdrawal Time: 04 minutes 58 seconds Total Procedure Duration Time: 12 minutes 26 seconds <Electronically Signed by Keegan Goodwin MD> 09/12/11 1031 documented in this encounter Plan of Treatment [...] [place] | | | | | | [address] | | | | | | | | +--------+---------+ + + + documented as of this encounter Visit Diagnoses Not on filedocumented in this encounter"
--- OUTSIDE RECORDS SUMMARY | ~2020-02-25 | XMS | Encounter Summary ---
Demographics + + + | Address | [address]. | | | [place] [address] | + + + | Home Phone | | + + + | Preferred Language | Unknown | + + + | Marital Status | | + + + | Mandaen Affiliation | Unknown | + + + | Race | White | + + + | Ethnic Group | Not or | + + + Author + + + | Author | [facility] | | | and [place] | + + + | Organization | [facility] | | | [...] + + + + + | Jody Up | ECON | NA | | | | | [place] | | + + + + + Care Team Providers + +------+ + | Care Spring Forger Name | Role | Phone | + +------+ + PCP | Unavailable | + +------+ + Reason for Referral Diagnostic/Screening (Routine) +--------+--------+ + + + + | Status | Reason | Specialty | Diagnoses / | Referred By | Referred To | | | | | Procedures | Contact | Contact | +--------+--------+ + + + + | Closed | | Radiology | Diagnoses | [place], | [facility] | | | | | SOB | Lul | [address] | | | | | (nisa | MD Marcello | [place], | | | | | of breath) | [address] | [place] | | | | | Hypertension | St [place] | [address] | | | | | Procedures | [place], [place] | Phone: | | | | | ECHO | [address] | [phone] | | | | | Complete | Phone: | Fax: | | | | | | [phone] | [phone] | | | | | | Fax: | | | | | | | [phone] | | +--------+--------+ + + + + Diagnostic/Screening (Routine) +--------+--------+ + + + + | Status | Reason | Specialty | Diagnoses / | Referred By | Referred To | | | | | Procedures | Contact | Contact | +--------+--------+ + + + + | Closed | | Radiology | Diagnoses | [place], | [facility] | | | | | SOB | Lul | Medicine | | | | | (marcusness | MD Marcello | [address] | | | | | of breath) | [address] | [place], | | | | | Other chest | [place] | [place] | | | | | pain | [place] | [address] | | | | | Procedures | [address] | Phone: | | | | | [place] Nuclear | Phone: | [phone] | | | | | Stress Test | [phone] | Fax: | | | | | (Exercise) | Fax: | [phone] | | | | | | [phone] | | +--------+--------+ + + + + Encounter Details +--------+ + + + + | Date | Type | Department | Care Team | Description | +--------+ + + + + | 03/16/ | Hospital | [facility] | Lul Arcos | SOB (shortness of | | 2012 | Encounter | MED CTR XRAY [address] | MD Marcello [address] | breath); Other chest | | | | [address] [place] | [address] [place] | pain; Hypertension | | | | [place] [address] | [place] [address] | | | | | [phone] | [phone] | | | | | | | [...] | | | | ORDER OF DR ARCOS. | | | | | + + [...] 2020 | Visit | | [address] | | | | | | [address] [place] | | | | | | [address] | | | | | | | | +--------+---------+ + + + documented as of this encounter Procedures + +--------+ + + + | Procedure Name | Priori | Date/Time | Associated Diagnosis | Comments | | | ty | | | | + +--------+ + + + | NM NUCLEAR STRESS | Routin | 03/16/2013 | SOB (shortness of | Results for this | | TEST (EXERCISE) | e | 6:11 PM | breath) Other chest | procedure are in the | | | | PDT | pain | results section. | + +--------+ + + + | ECHO COMPLETE | Routin | 03/16/2013 | SOB (shortness of | Results for this | | | e | 6:03 PM | breath) | procedure are in the | | | | PDT | Hypertension | results section. | + +--------+ + + + documented in this encounter Results NM Nuclear Stress Test (Exercise) (03/16/2013 6:11 PM PDT) + + | Specimen | + + | | + + + + + | Narrative | Performed At | + + + | [facility] | [place] | | Department [address] [place] [address] | [facility] | | [ rep ct [address]] [ rep ct [facility] | | st zip] Signed | - IMAGING | | | | | Patient Name: ROBERT UP Physician: | | | ALYSSA : 1935 Age: 77 Sex: F Unit #: [id number] | | | Exam Date: 03/16/13 Location: [facility] | | | Report #: [id number] Page: | | | %(RAD)RES..mtdd.print.filter("pg") of %(RAD) | | | RES..mtdd.print.filter("tpg") | | | | | | Accession Number: [id number] | | | NUCLEAR STRESS PERFUSION STUDY, 03/16/2013 REFERRING | | | PHYSICIAN: Yessica Arcos MD, and Dr. Farris. | | | INDICATION: DYSPNEA ON EXERTION, CHEST PAIN. SCREENING FOR CORONARY | | | ISCHEMIA. PROCEDURE: The patient was injected with 0.4 mg | | | of Regadenoson as a pharmacologic stress agent. Thereafter, she | | | received 10 mCi of Cardiolite followed by post stress supine SPECT | | | imaging. Patient underwent rest perfusion imaging following the | | | injection of 33 mCi of Cardiolite. RESULTS | | | PHARMACOLOGIC STRESS: Resting heart rate was 15 increasing to 68 with | | | infusion. Resting blood pressure was 145/90 increasing to 156/81. | | | Resting electrocardiogram shows underlying sinus bradycardia with | | | normal access and diffuse T wave flattening. With stress there were no | | | diagnostic ECG changes noted. The patient had no significant | | | dysrhythmias. NUCLEAR IMAGING: Gated SPECT images | | | demonstrate normal LV size. There is evidence of normal regional | | | wall thickening. LVEF is calculated at 41% post stress but this may be | | | artifactually incorrect secondary to gating abnormality. There | | | are significant defects in the rest or post stress myocardial | | | perfusion images. IMPRESSION: 1. PHARMACOLOGIC | | | STRESS NOTABLE FOR BASELINE ABNORMAL ECG WITHOUT DIAGNOSTIC CHANGES OR | | | SYMPTOMS. 2. EVIDENCE FOR NORMAL LV SIZE AND SYSTOLIC | | | FUNCTION. EJECTION FRACTION LIKELY NOT ACCURATELY MEASURED IN THIS | | | STUDY AND SHOULD BE CONFIRMED TO ALTERNATE METHODOLOGY SUCH | | | ECHOCARDIOGRAPHY. 3. NO SIGNIFICANT FIXED OR ISCHEMIC | | | PERFUSION ABNORMALITIES NOTED. <<Signature on | | | File>> | | | S Marcello Arcos MD03/17/13 1039 <Electronically signed by S | | | S. Josselyn ISIDRO> S Marcello Arcos MD 03/16/13 1811 | | | Fishing Game Warden: Lynsey Thayer03/17/13 0832 S | | | Marcello Arcos MD | | + + + + + + + + | Performing | Address | City/State/Zipcode | Phone Number | | Organization | | | | + + + + + | [place] [facility] | [address] | [place] | [phone] | | [facility] | | [address] | | | - IMAGING | | | | + + + + + ECHO Complete (03/16/2013 6:03 PM PDT) + + | Specimen | + + | | + + + + + | Narrative | Performed At | + + + | [facility] | [place] | | Department [address], [place] | [facility] | | [ rep ct [address]] [ [address] city | [facility] | | st zip] Signed | - IMAGING | | | | | Patient Name: ROBERT UP Physician: | | | RUPA. : 1935 Age: 77 Sex: F Unit #: [id number] | | | Exam Date: 03/16/13 Location: [facility] | | | Report #: [id number] Page: | | | %(RAD)RES..mtdd.print.filter("pg") of %(RAD) | | | RES..mtdd.print.filter("tpg") | | | | | | Accession Number: [id number] | | | E C H O C A R D I O G R A P H Y R E P O R T | | | HEIGHT: 5'2" WEIGHT: 135# | | | SENIOR MECHANICAL PROJECT ENGINEER: OTONIEL WU DR: JOSSELYN MEHTA DR: | | | [place] DIAGNOSIS: HYPERTENSION, SOB | | | | | | M E A S U R E M E N T S | | | Aortic Root: 33 mm LV | | | Diameter-diastole: 58 mm Aortic Cusp Sep: 19 mm | | | LV Diameter--systole: 33 mm LA: | | | 49 mm Fractional Shortenin % | | | IVS--diastole: 11 mm PFV Aortic Valve: | | | IVS--systole: 19 mm MPG Mitral | | | Valve: mmHg LVPW--diastole: 11 mm | | | PFV TR Jet: 2.88 m/s LVPW--systole: | | | 15 mm RA/RV PP.1 mmHg | | | | | | | | | ECHOCARDIOGRAM, 03/16/2013 REFERRING PHYSICIAN: | | | Marcello Arcos MD INDICATION: HYPERTENSION, SHORTNESS OF | | | BREATH . TECHNIQUE: Quality of the study is good. This is | | | a complete transthoracic echocardiogram including 2-D | | | /M-Mode/Doppler/color Doppler flow analysis. HEMODYNAMICS: | | | The heart rate is in the 70s at the time of this study. Patient is | | | in underlying sinus rhythm with frequent ectopic beats. | | | RESULTS CHAMBERS: The left ventricle is at the upper limit of | | | normal in its end-diastolic and systolic dimensions with mild | | | concentric hypertrophy, normal regional wall motion and LVEF of 58%. | | | The left atrium is mildly enlarged. Right atrium is normal size. | | | Right ventricle is of normal size and systolic function with normal | | | wall thickness. VALVES: The aortic valve is a mildly | | | sclerotic trileaflet valve with adequate opening. There is no | | | significant stenosis with trace insufficiency noted. Mitral valve is | | | mildly thickened with mild regurgitation. Tricuspid valve shows mild | | | insufficiency with a peak velocity of 2.9 m/s consistent with LV | | | systolic pressures of 38-43 mmHg which is mildly elevated. Pulmonic | | | valve shows trace insufficiency. MISCELLANEOUS: Aortic | | | root measures at 33 mm. Pericardium is normal with a small amount of | | | pericardial fluid predominantly adjacent to biventricular free | | | drummond with a maximal measurement of 9 mm without any | | | echocardiographic evidence of hemodynamic significant. IVC is | | | normal. DIASTOLOGY: Diastolic parameters are consistent | | | with grade 1 LV diastolic dysfunction, likely within normal limits | | | for age. IMPRESSION: 1. MILD CONCENTRIC LVH WITH AN | | | LVEF OF 58%. 2. MILD LEFT ATRIAL ENLARGEMENT. 3. | | | MILD MITRAL AND TRICUSPID REGURGITATION. 4. 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 5. SMALL PERICARDIAL EFFUSION WITHOUT | | | ANY ECHOCARDIOGRAPHIC EVIDENCE OF HEMODYNAMIC SIGNIFICANCE. | | | Dictated Date/Time: 03/16/2013 18:03 Transcribed | | | Date/Time: 03/17/2013 04:04 Fishing Game Warden: | | | <<Signature on File>> | | | S | | | Marcello Arcos MD03/17/13 1039 <Electronically signed by S S. | | | Josselyn ISIDRO> S Marcello Arcos MD 03/16/13 1803 | | | Fishing Game Warden: [employer] Mjrvvgljvuhdf41/15/13 0404 S | | | Marcello Arcos MD | | + + + + + + + + | Performing | Address | City/State/Zipcode | Phone Number | | Organization | | | | + + + + + | [facility] | [address] | [place] | [phone] | | [facility] | | [address] | | | - IMAGING | | | | + + + + + documented in this encounter Visit Diagnoses + + | Diagnosis | + + | SOB (shortness of breath) Shortness of breath | + + | Other chest pain | + + | Hypertension Unspecified essential hypertension | + + documented in this encounter
--- OUTSIDE RECORDS SUMMARY | ~2020-02-25 | XMS | Encounter Summary ---
Demographics + + + | Address | [address] | | | [place] [address] | + + + | Home Phone | | + + + | Preferred Language | Unknown | + + + | Marital Status | | + + + | Jain Affiliation | Unknown | + + + [...] Team Providers + +------+ + | Care Shoe Turner Name | Role | Phone | + [...] | SOB | Lul | [address] | | | | | (nisa | MD Marcello | [place], | | | | | of breath) | [address] | [place] | | | | | Hypertension | [place] | [address] | | | | | Procedures | [place], [place] | Phone: | | | | | ECHO | [address] | [phone] | | | | | Complete | Phone: | Fax: | | | | | | [phone] | [phone] | | | | | | Fax: | | | | | | | [phone] | | +--------+--------+ + + + + [...] (marcusness | MD Marcello | [address] | | | | | of breath) | [address] | [place], | | | | | Other chest | [place] | [place] | | | | | pain | [place], [place] | [address] | | | | | Procedures | [address] | Phone: | | | | | [place] Nuclear | Phone: | [phone] | | | | | Stress Test | [phone] | Fax: | | | | | (Exercise) | Fax: | [phone] | | | | | | [phone] | | +--------+--------+ + + + + Reason for Visit + + + | Reason | Comments | + + + | Shortness of Breath | Initial Consultation, Labs | + + + Encounter Details +--------+---------+ + + + | Date | Type | Department | Care Team | Description | +--------+---------+ + + + | 02/03/ | Office | [facility] | Lul Arcos | SOB (shortness of | | 2012 | Visit | CARDIOLOGY [address] | MD Marcello [address] | breath) (Primary | | | | [address] [place], | [address] [place] | Dx); Other chest | | | | [place] [address] | [place] [address] | pain; Bradycardia; | | | | [phone] | [phone] | Hypertension | | | | | | | [...] + + + | Blood Pressure | 182/100 | 02/03/2013 2:18 PM | right arm 180/98 | | | | PDT | | + + + + + | Pulse | 42 | 02/03/2013 2:18 PM | regular | | | | PDT | | + + + + + | Temperature | - | - | | + + + + + | Respiratory Rate | 14 | 02/03/2013 2:18 PM | | | | | PDT | | + + + + + | Oxygen Saturation | - | - | | + + + + + | Inhaled Oxygen | - | - | | | Concentration | | | | + + + + + | Weight | 64 kg (141 lb) | 02/03/2013 2:18 PM | | | | | PDT | | + + + + + | Height | 157.5 cm (5' 2") | 02/03/2013 2:18 PM | | | | | PDT | | + + + + + | Body Mass Index | 25.79 | 02/03/2013 2:18 PM | | | | | PDT | | + + + + + documented in this encounter Progress Notes Lul Arcos MD - 02/03/2013 2:15 PM PDTFormatting of this note might be differe nt from the original. Subjective: Cardiology Office Visit Date of Service: 02/03/2013 Patient ID: Robert Up is a 77 y.o. female. PCP: Man HUNTER Robert Up is a 77 y.o. female with a history of Dyspnea on exertion who presents for fur ther consultation. She states that she has had symptoms of feeling fatigued and when he prim arily with going upstairs as well as walking uphill for quite some time, perhaps one year. O therwise she is laterally active and goes on one long daily walk each morning with her dog. She denies any trouble with walking on level ground and denies having chest pains per se, no r any orthopnea, PND, or lower extremity edema. She denies any palpitations, lightheadedness , or history of syncope. She denies any previous cardiac vascular testing with imaging or an y history of known CAD, cardiomyopathy, peripheral arterial disease. Patient Active Problem List Diagnosis DIVERTICULOSIS Gout Depression Goiter Renal cyst Hypothyroidism Hypertension Glaucoma SOB (shortness of breath) on exertion Past Surgical History Procedure Date Hysterectomy Cholecystectomy Appendectomy Cataract removal bilateral Joint replacement 2011 right Joint replacement 08/2012 left Tonsillectomy Rhinoplasty No family history on file. 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 Respiratory: Positive for shortness of breath (with exertion). Negative for apnea, cough, c hoking, chest tightness, wheezing and stridor. Cardiovascular: Negative for chest [...] on. The patient is not nervous/anxious. BP 182/100 | Pulse 42 | Resp 14 | Ht 1.575 m (5' 2") | Wt 63.957 kg (141 lb) | BMI 25.79 kg /m2 Objective: Physical Exam Vitals reviewed. [...] diffuse T wave flattening. LAB: Abstract on 01/20/2013 Component Date Value Cholesterol, Total 03/06/2012 193 TRIGLYCERIDES 03/06/2012 91 HDL 03/06/2012 55 LDL CALC 03/06/2012 120 Free T4 06/10/2012 1.2 TSH 06/10/2012 0.02 NA 03/06/2012 141 K 03/06/2012 3.8 Chloride 03/06/2012 107 CO2 03/06/2012 30 ANION GAP 03/06/2012 8 GLUCOSE 03/06/2012 99 BUN 03/06/2012 24 Creatine, Serum 03/06/2012 0.96 GFR ESTIMATE 03/06/2012 >60 BUN/CREATININE 03/06/2012 25 CALCIUM 03/06/2012 10.2 TOTAL PROTEIN 03/06/2012 6.5 ALBUMIN 03/06/2012 4.0 Globulin 03/06/2012 2.5 Albumin/Globulin Ratio 03/06/2012 1.6 BILIRUBIN TOTAL 03/06/2012 0.6 ALK PHOS 03/06/2012 52 ALT 03/06/2012 10 AST 03/06/2012 13 I personally reviewed records from another healthcare provider. Assessment: 1. Dyspnea on exertion - this may certainly be an anginal component to this patient. She cisneros s coronary disease risk factors of age & hypertension, as well as an abnormal ECG. She would benefit a treadmill myocardial stress perfusion imaging study, which may also help ascertai n her chronotropic competence given her significant baseline bradycardia. We'll also have he r undergo an echocardiogram to assess for diastolic dysfunction given significant baseline h ypertension. We'll also have her undergo a 24-hour Holter monitor to rule out significant br adycardia and/or pauses. 2. Bradycardia - patient states that she has been on high-dose carvedilol therapy for many years and denies any significant obvious lightheadedness or history of syncope. However, dys pnea and exertion may be lymphoma in this patient. We'll obtain a 24-hour Holter monitor as described above. 3. Hypertension - patient is markedly hypertensive with an office - and upon my measurement s later during the visits, she was actually found to be even more hypertensive with blood pr essure readings in the range of 208/100. Given her significant baseline bradycardia, this ma n presents challenged accurate blood pressure assessment and many clinical settings. I've as ked the patient to maintain a log of her ambulatory blood pressure readings and bring back f or review. She may benefit from assessment for secondary causes of hypertension such as zayra l artery stenosis. For now we will continue her current medical regimen. Plan: 1. Myocardial stress perfusion imaging study. 2. Echocardiography. 3. 24 hour Holter monitor. 4. Monitor and with a blood pressure readings. 5 followup visit within 3-4 weeks. Portions of this report were transcribed using voice recognition software. Every effort wa s made to ensure accuracy; however, inadvertent computerized movie actor errors may be pre sent. I appreciate the opportunity to help with the management of this patient. Yessica Arcos MD PhD documented in t his encounter Procedure Notes ONPERLA SCAN [facility] - 02/03/2013 12:00 AM PDTAssociated Order(s): ECG - EXTERNAL SCANElectroni sana signed by Judith Avilez at 02/06/2013 1:58 PM PDTONBASE SCAN [facility] - 02/03/2013 12:00 A M PDTAssociated Order(s): LABS - EXTERNAL SCANElectronically signed by Judith Avilez at 02/05 2:45 PM PDTdocumented in this encounter Plan of [...] [place] | | | | | | [id number] | | | | | | | | +--------+---------+ + + + + +------+--------+ + + | Name | Type | Priori | Associated Diagnoses | Order Schedule | | | | ty | | | + +------+--------+ + + | ECG 12 lead | ECG | Routin | SOB (shortness of | Ordered: 02/03/2013 | | | | e | breath) | | + +------+--------+ + + | Holter monitor - 24 | ECG | Routin | Bradycardia | Expected: 02/03/2013 | | hour | | e | | (Approximate), | | | | | | Expires: 02/03/2014 | + +------+--------+ + + documented as of this encounter Procedures + +--------+ + + + | Procedure Name | Priori | Date/Time | Associated Diagnosis | Comments | | | ty | | | | + +--------+ + + + | LABS - EXTERNAL SCAN | | 02/03/2013 | | Results for this | | | | 12:00 AM | | procedure are in the | | | | PDT | | results section. | + +--------+ + + + | ECG - EXTERNAL SCAN | | 02/03/2013 | | Results for this | | [...] Performed At | + + + | [facility] | [place] | | Department [facility] [address] | [facility] | | [ rep [address]] [ rep [facility] | | st zip] Signed | - IMAGING | | | | | Patient Name: ROBERT UP Physician: | | | RUPA. : 1935 Age: 77 Sex: F Unit #: [id number] | | | Exam Date: 03/16/13 Location: [facility] | | | Report #: [id number] Page: | | | %(RAD)RES..mtdd.print.filter("pg") of %(RAD) | | | RES..mtdd.print.filter("tpg") | | | | | | Accession Number: [id number] | | | NUCLEAR STRESS PERFUSION STUDY, [...] <Electronically signed by S | | | Yessica Arcos MD> S Marcello Arcos MD 03/16/13 1811 | | | Histology Manager: Lynsey Thayer03/17/13 [address] | | | Marcello Arcos MD | | + + + + + + + + | Performing | Address | City/State/Zipcode | Phone Number | | Organization | | | | + + + + + | [facility] | [address] | [place], [place] | [phone] | | [facility] | | [address] | | | - IMAGING | | | | + + + + + ECHO Complete (03/16/2013 6:03 PM PDT) + + | Specimen | + + | | + + + + + | Narrative | Performed At | + + + | [facility] | [place] | | Department [address], [place] | [facility] | | [ rep [address]] [ rep ct [facility] | [facility] | | st zip] Signed | - IMAGING | | | | | Patient Name: ROBERT UP Physician: | | | RUPA. : 1935 Age: 77 Sex: F Unit #: [id number] | | | Exam Date: 03/16/13 Location: [facility] | | | Report #: [id number] Page: | | | %(RAD)RES..mtdd.print.filter("pg") of %(RAD) | | | RES..mtdd.print.filter("tpg") | | | | | | Accession Number: [id number] | | | E C H O C A R D I O G R A P H Y R E P O R T | | | HEIGHT: 5'2" WEIGHT: 135# | | | PEDIATRIC SOCIAL WORKER: OTONIEL REFERRING DR: JOSSELYN MEHTA DR: | | | JOSSELYN DIAGNOSIS: HYPERTENSION, SOB | | | | [...] Transcribed | | | Date/Time: 03/17/2013 04:04 Histology Manager: | | | <<Signature on File>> | | | S | | | Marcello Arcos MD03/17/13 1039 <Electronically signed by S S. | | | Josselyn ISIDRO> S Marcello Arcos MD 03/16/13 3505 | | | Histology Manager: [employer] [id number]/15/13 [address] | | | Marcello Arcos MD | | + + + + + + + + | Performing | Address | City/State/Zipcode | Phone Number | | Organization | | | | + + + + + | [facility] | [address] | [place], [place] | [phone] | | [facility] | | [address] | | | - IMAGING | | | | + + + + + LABS - EXTERNAL SCAN (02/03/2013 12:00 AM PDT) + + + | Narrative | Performed At | + + + | Ordered by an | | | unspecified provider. | | + + + + + | Transcriptions | + + | Judith Avilez - 02/03/2013 12:00 AM PDT | + + ECG - EXTERNAL SCAN (02/03/2013 12:00 AM PDT) + + + | Narrative | Performed At | + + + | Ordered by an | | | unspecified provider. | | + + + + + | Transcriptions | + + | Judith Avilez - 02/03/2013 12:00 AM PDT | + + documented in this encounter Visit Diagnoses + + | Diagnosis | + + | SOB (shortness of breath) - Primary Shortness of breath | + + | Other chest pain | + + | Bradycardia Other specified cardiac dysrhythmias | + + | Hypertension Unspecified essential hypertension | + + documented in this encounter
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
--- OUTSIDE RECORDS SUMMARY | ~2020-02-25 | XMS | Encounter Summary ---
Demographics + + + | Address | [address] | | | [place] [address] | + + + | Home Phone [...] Team Providers + +------+ + | Care Manager Gaming Name | Role | Phone | + +------+ + | Peter Phillips MD | PCP | | + +------+ + Reason for Visit + +--------+ + | Reason | Onset | Comments | | | Date | | + +--------+ + | Appointment | 09/02/ | | | | 2019 | | + +--------+ + Encounter Details +--------+ + + + + | Date | Type | Department | Care Team | Description | +--------+ + + + + | 09/02/ | Telephone | [facility] | Lul Arcos | Appointment | | 2018 | | [address] | MD Marcello [address] | | | | | [place], | [address] [place] | | | | | [place] [address] | [place] [address] | | | | | [phone] | [phone] | | | | | | | [...] this encounter Miscellaneous Notes Telephone Encounter - Quin Valentin - 09/02/2018 3:52 PM PDTPatient needs a 6-9 month foll ow up with Dr Arcos, patient has been called twice and mailed unable to reach letter. Elect ronfloyd signed by Quin Valentin at 09/02/2018 3:55 PM PDTdocumented in this encounter Plan of [...]
--- OUTSIDE RECORDS SUMMARY | ~2020-02-25 | XMS | Encounter Summary ---
Demographics + + + | Address | [address] | | | [place] [address] | + + + | Home Phone | | + + + | Preferred Language | Unknown | + + + | Marital Status | | + + + | Restorationist Affiliation | Unknown | + + + [...] Team Providers + +------+ + | Care Drill Doctor Name | Role | Phone | + [...] [place] | | | | | | [place] [address] | [place], [place] | | | | | | Phone: | [address] | | | | | | [phone] | Phone: | | | | | | Fax: | [phone] | | | | | | [phone] | Fax: | | | | | | | [phone] | +--------+ + + + + + Encounter Details +--------+ + + + + | Date | Type | Department | Care Team | Description | +--------+ + + + + | 12/01/ | Off-Site | [facility] [place] | Naveed Adams MD | Neoplasm of | | 2020 | Visit | OTOLARYNGOLOGY [address] | [address] | uncertain behavior | | | | [address] | [address] [place] | of skin (Primary Dx) | | | | [place], [place] | [address] | | | | | [address] | | | | | | [phone] | | | +--------+ + + + [...] encounter Progress Notes Naveed Adams MD - 12/02/2019 11:30 AM PDTPreop diagnosis: 1 right forehead lesion of unce rtain diagnosis. #2 left arm skin lesion of uncertain diagnosis. Postop diagnosis: Same Procedure: Excision of right forehead lesion and excision of left arm lesion. Findings: Patient had a small nonhealing lesion on the right forehead that on excision was about 4 mm wide. On the left arm she has a nonhealing lesion that is on excision 1.2 cm. Procedure: After the forehead lesion had been injected with 1% Xylocaine with epinephrine t he lesion was removed in elliptical fashion in a horizontal direction. The entire lesion wa s removed and sent for path examination. The wound was closed with interrupted 6-0 nylon sarkar ture and then some topical antibiotics were applied. The wound that was not healing on the left upper arm was removed in an elliptical fashion in a vertical direction. The entire les ion was removed and sent for path examination. The wound was closed with interrupted 5-0 ny veronica suture and then some antibiotic ointment was applied. A Band-Aid was applied over this wound. Plan: Patient will apply some topical antibiotics before showering and will have the suture s removed in 1 week's time. The specimens were both sent for path examination. 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
--- OUTSIDE RECORDS SUMMARY | ~2020-02-25 | XMS | Encounter Summary ---
Demographics + + + | Address | [address] | | | [place] [address] | + + + | Home Phone | | + + + | Preferred Language | Unknown | + + + | Marital Status | | + + + | Nondenominational Affiliation | Unknown | + + + | Race | White | + + + | Ethnic Group | Not or | + + + Author + + + | Author | [facility] | | | and [place] | + + + | Organization | [facility] | | | and [...] Team Providers + +------+ + | Care Tuckpointer Name | Role | Phone | + +------+ + | Koko Orantes MD | PCP | | + +------+ + Reason for Visit +--------+--------+ + | Reason | Onset | Comments | | | Date | | +--------+--------+ + | Other | 04/11/ | Prescription Refill Request | | | 2014 | | +--------+--------+ + Encounter Details +--------+ + + + + | Date | Type | Department | Care Team | Description | +--------+ + + + + | 04/11/ | Telephone | [facility] | Lul Arcos | Other (Prescription | | 2014 | | [address] | MD Marcello [address] | Refill Request ) | | | | [place], | [address] [place] | | | | | [place] [address] | [place] [address] | | | | | [phone] | [phone] | | | | | | | [...] encounter Miscellaneous Notes Telephone Encounter - Claudine Rodriguez RN - 04/11/2015 11:55 AM Mitra called in to re quest a refill of Amlodipine. Orders sent. Claudine Rodriguez RN 04/11/2015 11:55 documented in this encounter Plan of Treatment +--------+---------+ + + + | Date | Type | Specialty | Care Team | Description | +--------+---------+ + + + | 03/03/ | Office | Otolaryngology | Naveed Adams MD | | | 2019 | Visit | | [address] [facility] | | | | | | [address] [place] | | | | | | [address] | | | | | | | | +--------+---------+ + + + documented as of this encounter Visit Diagnoses Not on filedocumented in this encounter"
--- OUTSIDE RECORDS SUMMARY | ~2020-02-25 | XMS | Encounter Summary ---
Demographics + + + | Address | [address]. | | | [place] [address] | + + + | Home Phone | | + + + | Preferred Language | Unknown | + + + | Marital Status | | + + + | Muslim Affiliation | Unknown | + + + | Race | White | + + + | Ethnic Group | Not or | + + + Author + + + | Author | [facility] | | | and [place] | + + + | Organization | [facility] | | [...] Team Providers + +------+ + | Care Floor Space Allocator Name | Role | Phone | + +------+ + | Peter Phillips MD | PCP | | + +------+ + Reason for Referral Evaluate & Treat (Routine) +--------+ + + + + + | Status | Reason | Specialty | Diagnoses / | Referred By | Referred To | | | | | Procedures | Contact | Contact | +--------+ + + + + + | Closed | Specialty | Otolaryngolog | Diagnoses | [place], [facility] | | Services | y | Lip cyst | Peter Mukherjee MD | Otolaryngolog | | | Required | | | [address] | [address] | | | | [address] [place] | [address] | | | | | | [place], [place] | [address] | | | | | | [address] | [place] | | | | | | Phone: | [phone] | | | | | | [phone] | Phone: | | | | | | Fax: | [phone] | | | | | | [phone] | Fax: | | | | | | | [phone] | +--------+ + + + + + Reason for Visit + + + | Reason | Comments | + + + | Hypertension | | + + + | Follow-up | follow up after her trip to [facility], her daughter lives there | + + + Encounter Details +--------+---------+ + + + | Date | Type | Department | Care Team | Description | +--------+---------+ + + + | 04/28/ | Office | [facility] | Peter Phililps, | Essential | | 2018 | Visit | [facility] [place] | [address] | hypertension | | | | [address] | [place] | (Primary Dx); Lip | | | | [place] | [address] | cyst; | | | | [address] | | Hyperlipidemia, | | | | [phone] | | unspecified | | | | | | hyperlipidemia type; | | | | | | Hypothyroidism, | | | | | | unspecified type | +--------+---------+ + + + Social [...] + + + | Blood Pressure | 160/88 | 04/28/2018 12:21 PM | | | | | PST | | + + + + + | Pulse | 67 | 04/28/2018 11:56 AM | | | | | PST | | + + + + + | Temperature | 36.7 C (98 F) | 04/28/2018 11:56 AM | | | | | PST | | + + + + + | Respiratory Rate | 20 | 04/28/2018 11:56 AM | | | | | PST | | + + + + + | Oxygen Saturation | 97% | 04/28/2018 11:56 AM | | | | | PST | | + + + + + | Inhaled Oxygen | - | - | | | Concentration | | | | + + + + + | Weight | 65.4 kg (144 lb 2.9 | 04/28/2018 11:56 AM | | | | oz) | PST | | + + + + + | Height | - | - | | + + + + + | Body Mass Index | 28.59 | 11/15/2017 1:11 PM | | | | | PDT | | + + + + + documented in this encounter Patient Instructions Patient Instructions Peter Phillips MD - 04/28/2018 11:15 AM PST Have labs here today. Keep up the great work with the exercise! Your blood pressure is a touch high today. The goal is less than 150/90. Please check your RESTING blood pressure a few days per week and call us or send us a [employer] message with the results. Controlling High Blood Pressure High blood pressure (hypertension) is often called the silent killer. This is because many people who have it don t know it. High blood pressure can raise your risk of heart attack, stroke, and heart failure. Controlling your blood pressure can decrease your risk of these problems. Know your blood pressure and remember to check it regularly. Doing so can save you r life. Blood pressure measurements are given as 2 numbers. Systolic blood pressure is the upper nu mber. This is the pressure when the heart contracts. Diastolic blood pressure is the lower n umber. This is the pressure when the heart relaxes between beats. Here are some things you can do to help control your blood pressure. Choose heart-healthy foods Select low-salt, low-fat foods. Limit sodium intake to 2,400 mg per day or the amount sarkar ggested by your healthcare provider. Limit canned, dried, cured, packaged, and fast foods. These can contain a lot of salt. Eat 8 to 10 servings of fruits and vegetables every day. Choose lean meats, fish, or chicken. Eat whole-grain pasta, brown rice, and beans. Eat 2 to 3 servings of low-fat or fat-free dairy products. Ask your doctor about the DASH eating plan. This plan helps reduce blood pressure. When you go to a restaurant, ask that your meal be prepared with no added salt. Maintain a healthy weight Ask your healthcare provider how many calories to eat a day. Then stick to that number. Ask your healthcare provider what weight range is healthiest for you. If you are overwei ght, a weight loss of only 3% to 5% of your body weightcan help lower blood pressure. Gene juanly, a good weight loss goal is to lose 10% of your body weight in a year. Limit snacks and sweets. Get regular exercise. Get up and get active Choose activities you enjoy. Find ones you can do with friends or family. This includes bicycling, dancing, walking, and jogging. Park farther away from building entrances. Use stairs instead of the elevator. When you can, walk or bike instead of driving. [place] leaves, garden, or do household repairs. Be active at a moderate to vigorous level of physical activity for at least 40 minutes f or a minimum of 3 to 4 days a week. Manage stress Make time to relax and enjoy life. Find time to laugh. Communicate your concerns with your loved ones and your healthcare provider. Visit with family and friends, and keep up with hobbies. Limit alcohol and quit smoking Men should have no more than 2 drinks per day. Women should have no more than 1 drink per day. Talk with your healthcare provider about quitting smoking. Smoking significantly increas es your risk for heart disease and stroke. Ask your healthcare provider about community smok ing cessation programs and other options. Medicines If lifestyle changes aren t enough, your healthcare provider may prescribe high blood pre ssure medicine. Take all medicines as prescribed. If you have any questions about your medic aubrie, ask your healthcare provider before stopping or changing them. Date Last Reviewed: 09/28/201519991271-0428 [employer]. [address] [place] [address]. All righ ts reserved. This information is not intended as a substitute for professional medical care. Always follow your healthcare professional's instructions. Taking Your Blood Pressure Blood pressure is the force of blood against the artery wall as it moves from the heart thr ough the blood vessels. You can take your own blood pressure reading using a digital monitor . Take your readings the same each time, using the same arm. Take readings as often as your healthcare provider instructs. About blood pressure monitors Blood pressure monitors are designed for certain ages and cases. You can find monitors for older adults, for women, and for children. Make sure the one you choose is the rig t one for your age and situation. The [place] [employer] recommends an automatic cuff monitor that fits on your upper arm (bicep). The cuff should fit your arm size. A cuff that s too large or too small will not give an accurate reading. Measure around your upper arm to find your size. Monitors that attach to your finger or wrist are not as accurate as monitors for your upper arm. Ask your healthcare provider for help in choosing a monitor. Bring your monitor to your [facility] t provider visit if you need help in using it the correct way. The steps below are general instructions for using an automatic digital monitor. Step 1. Relax Take your blood pressure at the same time every day, such as in the morning or evening, or at the time your healthcare provider recommends. Wait at least a half-hour after smoking, eating, or exercising. Don't drink coffee, tea, soda, or other caffeinated beverages before checking your blood pressure. Sit comfortably at a table with both feet on the floor. Do not cross your legs or feet. Place the monitor near you. Rest for a few minutes before you begin. Step 2. Wrap the cuff Place your arm on the table, palm up. Your arm should be at the level of your heart. Wra p the cuff around your upper arm, just above your elbow. It s best done on bare skin, not over clothing. Most cuffs will indicate where the brachial artery (the blood vessel in the m iddle of the arm at the inner side of the elbow) should line up with the cuff. Look in your monitor's instruction booklet for an illustration. You can also bring your cuff to your [facility] provider and have them show you how to correctly place the cuff. Step 3. Inflate the cuff Push the button that starts the pump. The cuff will tighten, then loosen. The numbers will change. When they stop changing, your blood pressure reading will appea r. Take 2 or 3 readings one minute apart. Step 4. Write down the results of each reading Write down your blood pressure numbers for each reading. Note the date and time. Keep yo ur results in one place, such as a notebook. Even if your monitor has a built-in memory, kizzy salgado a hard copy of the readings. Remove the cuff from your arm. Turn off the machine. Bring your blood pressure records with your healthcare providers at each visit. If you start a new blood pressure medicine, note the day you started the new medicine. A lso note the day if you change the dose of your medicine. This information goes on your bloo d pressure recording sheet. This will help your healthcare provider monitor how well the med icine changes are working. Ask your healthcare provider what numbers should prompt you to call him or her. Also ask what numbers should prompt you to get help right away. Date Last Reviewed: 04/03/201619994493-7067 [employer]. [address] [place] [address]. All righ ts reserved. This information is not intended as a substitute for professional medical care. Always follow your healthcare professional's instructions. documented in this encounter Progress Notes Peter Phillips MD - 04/28/2018 11:15 AM PSTFormatting of this note might be different fr om the original. Subjective: Patient ID: Naomi Fernandez is a 82 y.o. female who is here today for Hypertension and Follow- up (follow up after her trip to [facility], her daughter lives there) HPI She has a mole of right lower lips for years which has changed over the past few months - g etting bigger. No pain, discharge. She is taking amlodipine, coreg as prescribed. No light headedness, CP, SOB, MENDIOLA, orthopne a, edema. She is trying to lose weight by limiting portions and walking regularly. She had a great trip to [facility]. 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 Had a gr eat Thanksgiving. Her daughter is visiting for [place]. Patient's medications, allergies, past medical, surgical, social and family histories were obtained and reviewed as appropriate. Current Outpatient Prescriptions on File Prior to Visit Medication Sig Dispense Refill allopurinol (ZYLOPRIM) 300 mg tablet Take 1 tablet by mouth Daily. To prevent gout flar e 90 tablet 1 amLODIPine (NORVASC) 10 MG tablet Take 1 tablet by mouth Daily. To lower blood pressure 90 tablet 3 Brinzolamide-Brimonidine (SIMBRINZA) 1-0.2 % SUSP Place 1 drop into the left eye 3 time s daily. carvedilol (COREG) 6.25 mg tablet Take 1 tablet by mouth 2 times daily. To lower blood pressure and heart rate 180 tablet 1 indomethacin (INDOCIN) 25 mg capsule Take 1 capsule by mouth Daily as needed for Gout P ain. 60 capsule 2 levothyroxine (SYNTHROID) 25 mcg tablet Take 1 tablet by mouth every morning (before br eakfast). For low thyroid 90 tablet 3 pravastatin (PRAVACHOL) 40 MG tablet Take 1 tablet by mouth nightly. To lower cholester ol and reduce risk of heart attack 90 tablet 3 timolol maleate (TIMOPTIC) 0.5% ophthalmic solution Place 1 drop into both eyes 2 times daily. travoprost (TRAVATAN Z) 0.004% ophthalmic solution 1 drop once a day at bedtime (Patien t taking differently: Place 1 drop into both eyes nightly.) No current facility-administered medications on file prior to visit. Review of Systems Objective: BP 160/88 | Pulse 67 | Temp 36.7 C (98 F) (Temporal) | Resp 20 | Wt 65.4 kg (144 lb 2.9 oz) | SpO2 97% | BMI 28.59 kg/m Physical Exam Constitutional: Very pleasant, well [...] edema. Lymphadenopathy: She has no cervical adenopathy. Skin: 6x10 mm cyst of external right lower lips Assessment & Plan: 1. Essential hypertension: Above goal today, but previously well controlled. Bradycardia resolved since decreasing Coreg - Continue coreg 6.25 mg twice daily, amlodipine 10 mg daily - Consider losartan or HCTZ if high on recheck - Home monitoring. 2. Lip cyst: Greatly appreciate Dr Adams's review, recommendations, and possible excision - * [facility] - AMB Referral 3. Hyperlipidemia, unspecified hyperlipidemia type - Labs as previously ordered. Adjust pravastatin pending results 4. Hypothyroidism, unspecified type - Labs as previously ordered - Adjust levothyroxine if needed No Follow-up on file. Francisco Phillips MD documented in this e [...] [place] | | | | | | [address] | | | | | | | | +--------+---------+ + + + + + +--------+ + + | Name | Type | Priori | Associated Diagnoses | Order Schedule | | | | ty | | | + + +--------+ + + | * [facility] [place] | Outpatient | Routin | Lip cyst | Ordered: 04/28/2018 | | Otolaryngology - AMB | Referral | e | | | | Referral | | | | | + + +--------+ + + documented as of this encounter Visit Diagnoses + + | Diagnosis | + + | Essential hypertension - Primary Unspecified essential hypertension | + + | Lip cyst Diseases of lips | + + | Hyperlipidemia, unspecified hyperlipidemia type | + + | Hypothyroidism, unspecified type | + + documented in this encounter"
--- OUTSIDE RECORDS SUMMARY | ~2020-02-25 | XMS | Encounter Summary ---
Demographics + + + | Address | [address]. | | | [place] [address] | + + + | Home Phone | | + + + | Preferred Language | Unknown | + + + | Marital Status | | + + + | Uatsdin Affiliation | Unknown | + + + | Race | White | + + + | Ethnic Group | Not or | + + + Author + + + | Author | [facility] | | | and [place] | + + + | Organization | [facility] | | | [...] Providers + +------+ + | Care Aircraft Hydraulic Equipment Mechanic Name | Role | Phone | + [...] Description | +--------+---------+ + + + | 04/22/ | Office | [facility] | Peter Phillips, | Essential | | 2019 | Visit | [facility] [place] | [address] | hypertension | | | | [address] | [place] [facility] [place] | (Primary Dx); | | | | [place], [place] | [address] | Hyperlipidemia, | | | | [address] | | unspecified | | | | [phone] | | hyperlipidemia type; | | | | | | Impaired fasting | | | | | | glucose; Chronic | | | | | | gout of left ankle, | | | | | | unspecified cause; | | | | | | Hypothyroidism, [...] + + + | Blood Pressure | 136/82 | 04/22/2019 10:12 AM | | | | | PST | | + + + + + | Pulse | 54 | 04/22/2019 10:12 AM | | | | | PST | | + + + + + | Temperature | 36.6 C (97.9 F) | 04/22/2019 10:12 AM | | | | | PST | | + + + + + | Respiratory Rate | 20 | 04/22/2019 10:12 AM | | | | | PST | | + + + + + | Oxygen Saturation | 97% | 04/22/2019 10:12 AM | | | | | PST | | + + + + + | Inhaled Oxygen | - | - | | | Concentration | | | | + + + + + | Weight | 65.7 kg (144 lb 13.5 | 04/22/2019 10:12 AM | | | | oz) | PST | | + + + + + | Height | - | - | | + + + + + | Body Mass Index | 28.29 | 10/16/2018 10:10 AM | | | | | PDT | | + + + + + documented in this encounter Patient Instructions Patient Instructions Peter Phillips MD - 04/22/2019 10:15 AM PSTHave labs here today. Keep up the terrific work. Continue to aim for: - 7-8 hours of sleep per night - At least 30 minutes of continuous brisk activity 5 days per week - A diet lower in carbohydrates and processed foods, higher in vegetables and lean protein s documented in this encounter Progress Notes Peter Phillips MD - 04/22/2019 10:15 AM PSTFormatting of this note might be different fr om the original. Subjective: Patient ID: Naomi Fernandez is a 83 y.o. female who is here today for Follow-up (6 month follo w up) and Hypertension HPI She feels really good. She stopped allopurinol. No gout flares. She walks daily 20-90 minutes. She is taking amlodipine, carvedilol, pravastatin as prescr ibed. Occasional swelling in ankles. No CP, MENDIOLA, orthopnea. She continues [employer] [facility] 2-3 times per week. She'll have 30 guests for [employer]. Patient's medications, allergies, past medical, surgical, social and family histories were obtained and reviewed as appropriate. Current Outpatient Medications on File Prior to Visit Medication Sig Dispense Refill amLODIPine (NORVASC) 10 MG tablet Take 1 [...] Daily as needed for Gout P ain. 20 capsule 0 levothyroxine (SYNTHROID) 25 mcg tablet Take 1 [...] nightly.) Review of Systems Constitutional: Negative for fatigue, fever and unexpected weight change. Respiratory: Negative for shortness of breath. Cardiovascular: Negative for chest pain, palpitations and leg swelling. Musculoskeletal: Negative for joint swelling. Skin: No concerning moles. Lesion on nose has not returned Neurological: Negative for dizziness and light-headedness. Objective: BP 136/82 | Pulse 54 | Temp 36.6 C (97.9 F) (Temporal) | Resp 20 | Wt 65.7 kg (144 lb 13.5 oz) | SpO2 97% | BMI 28.29 kg/m Physical Exam Constitutional: She is oriented to person, place, and time. Very pleasant, well developed, NAD Neck: Neck supple. Thyromegaly: mild symmetric thyromegally. Cardiovascular: Normal rate, regular rhythm, normal heart sounds and intact distal pulses. Exam reveals no gallop and no friction rub. No murmur heard. Pulmonary/Chest: Breath sounds normal. No respiratory distress. She has no wheezes. She has no rales. Musculoskeletal: General: No edema. Lymphadenopathy: She has no cervical adenopathy. Neurological: She is alert and oriented to person, place, and time. Skin: No concerning lesions of face Psychiatric: She has a normal mood and affect. Her behavior is normal. Thought content norm al. Assessment & Plan: 1. Essential hypertension: Well controlled - Continue great work - Continue current medications - carvedilol (COREG) 6.25 mg tablet; Take 1 tablet by mouth 2 times daily. To lower blood p ressure and heart rate Dispense: 180 tablet; Refill: 1 2. Hyperlipidemia, unspecified hyperlipidemia type: Primary prevention - Continue pravastatin - Comprehensive Metabolic Panel; Future - Lipid Panel; Future 3. Impaired fasting glucose - Labs 4. Chronic gout of left ankle, unspecified cause: Doing well off allopurinol - Recheck uric acid 5. Hypothyroidism, unspecified type - Recheck TSH and adjust levothyroxine if needed - TSH; Future Refuses all vaccines Return in about 6 months (around 10/21/2019) for Medicare Wellness. Francisco Phillips MD documented in this e [...] documented as of this encounter Results TSH (04/22/2019 10:50 AM PST) + +-------+ + + + | Component | Value | Ref Range | Performed | Pathologist | | | | | At | Signature | + +-------+ + + + | TSH | 0.82 | 0.36 - 3.74 | [facility] | [...] + + | [facility] | [address] | [place] | [phone] | | [facility] | | [address] | | | [facility] | | | | + + + + + Lipid Panel (04/22/2019 10:50 AM PST) + +---------+ + + + | Component | Value | Ref Range | Performed | Pathologist | | | | | At | Signature | + +---------+ + + + | Triglycerid | 58 | 30 - 150 mg/dL | [facility] | | | es | | | [facility] | | | | [facility] | | + +---------+ + + + | Cholesterol | 215 (H) | 150 - 200 mg/dL | [facility] | | | | | | [facility] | | [facility] | | + +---------+ + + + | HDL | 81 (H) | 40 - 60 mg/dL | [facility] | | | | | | [facility] | | [facility] | | + +---------+ + + + | Chol/HDL | 2.7 | | [facility] | | | Ratio | | | [facility] | | | | [facility] | | + +---------+ + + + | LDL, | 122 | <130 mg/dL | [facility] | | [...] + + + | [facility] | [address] | [place] | [phone] | | [facility] | | [address] | | | [facility] | | | | + + + + + Comprehensive Metabolic Panel (04/22/2019 10:50 AM PST) + + + + + + | Component | Value | Ref Range | Performed | Pathologist | | | | | At | Signature | + + + + + + | Na | 141 | 136 - 145 | [facility] | | | | | mmol/L | [facility] | | [facility] | | + + + + + + | K | 4.4 | 3.5 - 5.1 | [facility] | | | | | mmol/L | [facility] | | | | [facility] | | + + + + + + | Cl | 106 | 98 - 107 mmol/L | [facility] | | | | | | [facility] | | | | [facility] | | + + + + + + | CO2 | 27 | 21 - 32 mmol/L | [facility] | | | | | | [facility] | | | [facility] | | + + + + + + | Anion Gap | 8 | 2 - 16 mmol/L | [facility] | | | | | | [facility] | | | [facility] | | + + + + + + | Glucose | 126 (H) | 74 - 106 mg/dL | [facility] | | | | | | [facility] | | [facility] | | + + + + + + | BUN | 25 (H) | 7 - 18 mg/dL | [facility] | | | | | | [facility] | | | [facility] | | + + + + + + | Creatinine | 1.22 (H) | 0.55 - 1.02 | [facility] | | | | | mg/dL | [facility] | | | | | | [facility] | | | | | | [facility] | | | | | [facility] | | + + + + + + | eGFR, | 42 (L)Comment: | >=60 | [facility] | | | non- | GLOMERULAR FILTRATION | mL/min/1.73m2 | [facility] | | | Vietnamese | RATE,ESTIMATED | | MEDICAL | | | | mL/min/1.91o5Agek than | | PARK | | | [...] + + + + | Calcium | 9.6 | 8.5 - 10.1 | [facility] | | | | | mg/dL | [facility] | | | | | | [facility] | | | | | | [facility] | | | | | | [facility] | | + + + + + + | Albumin | 3.8 | 3.4 - 5.0 g/dL | [facility] | | | | | | [facility] | | | | [facility] | | + + + + + + | Bilirubin | 0.8 | 0.2 - 1.0 mg/dL | [facility] | | | Total | | | [facility] | | | | | [facility] | [facility] | [facility] | | + + + + + + | Total | 7.2 | 6.4 - 8.2 g/dL | [facility] | | | Protein | | | [facility] | | | | | [facility] | | | | [facility] | | + + + + + + | AST | 14 (L) | 15 - 37 U/L | [facility] | | | | | | [facility] | | | | | | [facility] | | | [facility] | | + + + + + + | ALT | 25 | 14 - 59 U/L | [facility] | | | | | | [facility] | | | | | [facility] | | | | [facility] | | + + + + + + | Alkaline | 72 | 46 - 116 U/L | [facility] | | | Phosphatase | | | [facility] | | [facility] | | [facility] | | | | | | [facility] | | | | | | [facility] | | + + + + + + | Globulin | 3.4 | 2.1 - 3.8 g/dL | [facility] | | | | | | [facility] | [facility] | | | | | | [facility] | | | | | [facility] | | + + + + + + | Albumin/Felipa | 1.1 | 0.8 - 2.0 | [facility] | | | bulin Ratio | | | [facility] | [facility] | | | | | | [facility] | | | | | [facility] | | + + + + + + | BUN/Creatin | 20.5 | | [facility] | | | ine [...] + + + | [facility] | [address] | [place] | [phone] | | [facility] | | [address] | | | [facility] | | | | + + + + + documented in this encounter Visit Diagnoses + + | Diagnosis | + + | Essential hypertension - Primary Unspecified essential hypertension | + + | Hyperlipidemia, unspecified hyperlipidemia type | + + | Impaired fasting glucose | + + | Chronic gout of left ankle, unspecified cause | + + | Hypothyroidism, unspecified type | + + documented in this encounter"
--- OUTSIDE RECORDS SUMMARY | ~2020-02-25 | XMS | Encounter Summary ---
Demographics + + + | Address | [address]. | | | [place] [address] | + + + | Home Phone | | + + + | Preferred Language | Unknown | + + + | Marital Status | | + + + | Confucianist Affiliation | Unknown | + + + | Race | White | + + + | Ethnic Group | Not or | + + + Author + + + | Author | [facility] | | | and [place] | + + + | Organization | [facility] | | | and [...] Team Providers + +------+ + | Care Certified Breastfeeding Educator Name | Role | Phone | + +------+ + | Koko Orantes MD | PCP | | + +------+ + Encounter Details +--------+ + + + + | Date | Type | Department | Care Team | Description | +--------+ + + + + | 09/04/ | Abstract | [facility] | Lul Arcos | | | 2015 | | CARDIOLOGY [address] | MD Marcello [address] | | | | | [place], | [address] [place] | | | | | [place] [address] | [place] [address] | | | | | [phone] | [phone] | | | | | | | [...] [place] | | | | | | [address] | | | | | | | | +--------+---------+ + + + documented as of this encounter Procedures + +--------+ + + + | Procedure Name | Priori | Date/Time | Associated Diagnosis | Comments | | | ty | | | | + +--------+ + + + | EXTERNAL LAB: NEIL | Routin | 09/02/2015 | | Results for this | | | e | | | procedure are in the | | | | | | results section. | + +--------+ + + + | EXTERNAL LAB: | Routin | 09/02/2015 | | Results for this | | GLUCOSE | e | | | procedure are in the | | | | | | results section. | + +--------+ + + + | EXTERNAL LAB: ALT | Routin | 09/02/2015 | | Results for this | | | e | | | procedure are in the | | | | | | results section. | + +--------+ + + + | EXTERNAL LAB: AST | Routin | 09/02/2015 | | Results for this | | | e | | | procedure are in the | | | | | | results section. | + +--------+ + + + | EXTERNAL LAB: | Routin | 09/02/2015 | | Results for this | | ALKALINE PHOSPHATASE | e | | | procedure are in the | | | | | | results section. | + +--------+ + + + | EXTERNAL LAB: | Routin | 09/02/2015 | | Results for this | | BILIRUBIN, TOTAL | e | | | procedure are in the | | | | | | results section. | + +--------+ + + + | EXTERNAL LAB: | Routin | 09/02/2015 | | Results for this | | ALBUMIN | e | | | procedure are in the | | | | | | results section. | + +--------+ + + + | EXTERNAL LAB: | Routin | 09/02/2015 | | Results for this | | PROTEIN, TOTAL | e | | | procedure are in the | | | | | | results section. | + +--------+ + + + | EXTERNAL LAB: | Routin | 09/02/2015 | | Results for this | | POTASSIUM | e | | | procedure are in the | | | | | | results section. | + +--------+ + + + | EXTERNAL LAB: SODIUM | Routin | 09/02/2015 | | Results for this | | | e | | | procedure are in the | | | | | | results section. | + +--------+ + + + | EXTERNAL LAB: | Routin | 09/02/2015 | | Results for this | | TRIGLYCERIDES | e | | | procedure are in the | | | | | | results section. | + +--------+ + + + | EXTERNAL LAB: | Routin | 09/02/2015 | | Results for this | | CHOLESTEROL, HDL | e | | | procedure are in the | | | | | | results section. | + +--------+ + + + | EXTERNAL LAB: | Routin | 09/02/2015 | | Results for this | | CHOLESTEROL, TOTAL | e | | | procedure are in the | | | | | | results section. | + +--------+ + + + | EXTERNAL LAB: | Routin | 09/02/2015 | | Results for this | | CHOLESTEROL, LDL | e | | | procedure are in the | | | | | | results section. | + +--------+ + + + | EXTERNAL LAB: | Routin | 09/02/2015 | | Results for this | | CREATININE | e | | | procedure are in the | | | | | | results section. | + +--------+ + + + documented in this encounter Results External Lab: NEIL (09/02/2015) + +--------+ + + + | Component | Value | Ref Range | Performed | Pathologist | | | | | At | Signature | + +--------+ + + + | BUN, | 31 (A) | 6 - 23 | | | | External | | | | | + +--------+ + + + + + | Resulting Agency Comment | + + | [facility] | + + External Lab: Glucose (09/02/2015) + +---------+ + + + | Component | Value | Ref Range | Performed | Pathologist | | | | | At | Signature | + +---------+ + + + | Glucose, | 112 (A) | 70 - 100 | | | | External | | | | | + +---------+ + + + + + | Resulting Agency Comment | + + | [facility] | + + External Lab: ALT (09/02/2015) + +-------+ + + + | Component | Value | Ref Range | Performed | Pathologist | | | | | At | Signature | + +-------+ + + + | ALT, | 11 | | | | | External | | | | | + +-------+ + + + + + | Hope [facility] Comment | + + | [facility] | + + External Lab: AST (09/02/2015) + +-------+ + + + | Component | Value | Ref Range | Performed | Pathologist | | | | | At | Signature | + +-------+ + + + | AST, | 13 | | | | | External | | | | | + +-------+ + + + + + | Resulting Agency Comment | + + | [facility] | + + External Lab: Alkaline Phosphatase (09/02/2015) + +-------+ + + + | Component | Value | Ref Range | Performed | Pathologist | | | | | At | Signature | + +-------+ + + + | ALP, | 54 | | | | | External | | | | | + +-------+ + + + + + | Resulting Agency Comment | + + | [facility] | + + External Lab: Bilirubin, Total (09/02/2015) + +-------+ + + + | Component | Value | Ref Range | Performed | Pathologist | | | | | At | Signature | + +-------+ + + + | Bilirubin, | 0.6 | | | | | Total, | | | | | | External | | | | | + +-------+ + + + + + | Resulting Agency Comment | + + | [facility] | + + External Lab: Albumin (09/02/2015) + +-------+ + + + | Component | Value | Ref Range | Performed | Pathologist | | | | | At | Signature | + +-------+ + + + | Albumin, | 4.1 | | | | | External | | | | | + +-------+ + + + + + | Resulting Agency Comment | + + | [facility] | + + External Lab: Protein, Total (09/02/2015) + +-------+ + + + | Component | Value | Ref Range | Performed | Pathologist | | | | | At | Signature | + +-------+ + + + | Protein, | 6.5 | | | | | Total, | | | | | | External | | | | | + +-------+ + + + + + | Resulting Agency Comment | + + | [facility] | + + External Lab: Potassium (09/02/2015) + +-------+ + + + | Component | Value | Ref Range | Performed | Pathologist | | | | | At | Signature | + +-------+ + + + | Potassium, | 4.1 | | | | | External | | | | | + +-------+ + + + + + | Resulting Agency Comment | + + | [facility] | + + External Lab: Sodium (09/02/2015) + +-------+ + + + | Component | Value | Ref Range | Performed | Pathologist | | | | | At | Signature | + +-------+ + + + | Sodium, | 140 | | | | | External | | | | | + +-------+ + + + + + | Resulting Agency Comment | + + | [facility] | + + External Lab: Triglycerides (09/02/2015) + +-------+ + + + | Component | Value | Ref Range | Performed | Pathologist | | | | | At | Signature | + +-------+ + + + | Triglycerid | 53 | | | | | es, | | | | | | External | | | | | + +-------+ + + + + + | Specimen | + + | Blood specimen | | (specimen) | + + + + | Resulting Agency Comment | + + | [facility] | + + External Lab: Cholesterol, HDL (09/02/2015) + +-------+ + + + | Component | Value | Ref Range | Performed | Pathologist | | | | | At | Signature | + +-------+ + + + | HDL | 79.9 | mg/dl | | | | Cholesterol | | | | | | , External | | | | | + +-------+ + + + + + | Specimen | + + | Blood specimen | | (specimen) | + + + + | Resulting Agency Comment | + + | [facility] | + + External Lab: Cholesterol, Total (09/02/2015) + +-------+ + + + | Component | Value | Ref Range | Performed | Pathologist | | | | | At | Signature | + +-------+ + + + | Cholesterol | 198 | mg/dl | | | | , Total, | | | | | | External | | | | | + +-------+ + + + + + | Specimen | + + | Blood specimen | | (specimen) | + + + + | Resulting Agency Comment | + + | [facility] | + + External Lab: Cholesterol, LDL (09/02/2015) + +---------+ + + + | Component | Value | Ref Range | Performed | Pathologist | | | | | At | Signature | + +---------+ + + + | LDL | 108 (A) | 0 - 100 | | | | Cholesterol | | | | | | , Direct, | | | | | | External | | | | | + +---------+ + + + + + | Specimen | + + | Blood specimen | | (specimen) | + + + + | Resulting Agency Comment | + + | [facility] | + + External Lab: Creatinine (09/02/2015) + +-------+ + + + | Component | Value | Ref Range | Performed | Pathologist | | | | | At | Signature | + +-------+ + + + | Creatinine, | 0.99 | | | | | External | | | | | + +-------+ + + + + + | Specimen | + + | Blood specimen | | (specimen) | + + + + | Resulting Agency Comment | + + | [facility] | + + documented in this encounter Visit Diagnoses Not on filedocumented in this encounter"
--- OUTSIDE RECORDS SUMMARY | ~2020-02-25 | XMS | Encounter Summary ---
Demographics + + + | Address | [address]. | | | [place] [address] | + + + | Home Phone [...] Author | [facility] | | | and [place] | + [...] Team Providers + +------+ + | Care Seasonal Customer Service Associate Name | Role | Phone | + +------+ + | Koko Orantes MD | PCP | | + +------+ + Reason for Visit + + + | Reason | Comments | + + + | Follow-up | | + + + | Shortness of Breath | | + + + | Bradycardia | | + + + | Hypertension | | + + + Encounter Details +--------+---------+ + + + | Date | Type | Department | Care Team | Description | +--------+---------+ + + + | 02/28/ | Office | [facility] | Lul Arcos | Bradycardia (Primary | | 2014 | Visit | CARDIOLOGY [address] | MD Marcello [address] | Dx); SOB (shortness | | | | [place] [address] [place], | [address] [place] | of breath) on | | | | [place] [address] | [place] [address] | exertion; Essential | | | | [phone] | [phone] | hypertension; | | | | | | Hyperlipidemia | +--------+---------+ + + + Social History [...] + + + | Blood Pressure | 110/82 | 02/28/2015 11:48 AM | [place] | | | | PDT | | + + + + + | Pulse | 54 | 02/28/2015 11:48 AM | regular | | | | PDT | | + + + + + | Temperature | - | - | | + + + + + | Respiratory Rate | 14 | 02/28/2015 11:48 AM | | | | | PDT | | + + + + + | Oxygen Saturation | - | - | | + + + + + | Inhaled Oxygen | - | - | | | Concentration | | | | + + + + + | Weight | 63 kg (139 lb) | 02/28/2015 11:48 AM | | | | | PDT | | + + + + + | Height | 157.5 cm (5' 2") | 02/28/2015 11:48 AM | | | | | PDT | | + + + + + | Body Mass Index | 25.42 | 02/28/2015 11:48 AM | | | | | PDT | | + + + + + documented in this encounter Progress Notes Lul Arcos MD - 02/28/2015 11:48 AM PDTFormatting of this note might be differe nt from the original. Subjective: Cardiology Office Visit Date of Service: 02/28/15 Patient ID: Naomi Fernandez is a 79 [...] who presents for a follow-up visit. She is gradually recovering from the recent o f her daughter from pulmonary complications at age 51, and recently returned from trip to [facility] when she went to scatter her ashes. She has managed to lose 8 pounds since our last vi sit. She has measured some blood pressure readings at home, it has noticed significant impr ovement since our last visit and initiation of therapy with amlodipine. She believes that he r systolics have been in the 130s maximally. She also had recent laboratory workup which sarkar ggested borderline baseline diabetes. 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 levothyroxine (SYNTHROID, LEVOTHROID) 25 mcg tablet Take 25 mcg by mouth every morning (before breakfast). lisinopril (PRINIVIL, ZESTRIL) 10 mg tablet Take 1 tablet by mouth Daily. 90 tablet 3 pravastatin (PRAVACHOL) 10 mg tablet Take 1 tablet by [...] on. The patient is not nervous/anxious. BP 110/82 mmHg | Pulse 54 | Resp 14 | Ht 1.575 m (5' 2") | Wt 63.05 kg (139 lb) | BMI 25.42 kg/m2 Objective: Physical Exam Constitutional: She is [...] LDL 120 03/06/2012 CHOLHDL 2.7 10/28/2014 LDLEX 106* 02/25/2015 HDLEX 33.8* 02/25/2015 TRIGEX 135 02/25/2015 CHOLEX 167 02/25/2015 CHEMISTRY Lab Results Component Value Date GLU 117 02/03/2013 NA 140 02/03/2013 K 3.8 02/03/2013 CL 105 02/03/2013 CO2 26 02/03/2013 CALCIUM 9.9 02/03/2013 ALKPHOS 66 02/03/2013 AST 13 03/06/2012 ALT 10 03/06/2012 BILITOT 0.9 02/03/2013 BUN 27 02/03/2013 EGFREX 53 02/25/2015 CREEX 1.01 02/25/2015 HEMATOLOGY Lab Results Component Value Date HGBEX 13.7 10/27/2014 Holter monitor February 2013 interpreted and reviewed by me showed underlying sinus rhythm , frequent PVCs and rare PACs without any runs, frequent periods of bradycardia throughout , with many pauses, longest being 2.4 [...] baseline bradycardia. Given evidence of borderline diabetes, damian alarcon would benefit from empiric therapy with an [...] we have started her on pravastatin at 10 mg daily which will benefit from up titration to 20 mg daily. Plan: 1. No further cardiovascular diagnostics for now. 2. Continue to monitor blood pressure readings. 3. followup visit within 2-3 months. 4. Increase pravastatin to 20 mg daily. Otherwise continue medical regimen. 5. Recheck fasting lipid profile and LFTs prior to follow-up visit. Portions of this report were transcribed using voice recognition software. Every effort wa s made to ensure accuracy; however, inadvertent computerized dry end tester errors may be pre sent. I appreciate the opportunity to help with the management of this patient. Yessica Arcos MD PhD FACC documented in t his encounter Miscellaneous Notes Addendum Note - Selena Camarillo RN - 03/01/2015 9:20 AM PDT Addended by: SELENA CAMARILLO on: 03/01/2015 09:20 Modules accepted: Orders documented in this encounter Plan of Treatment +--------+---------+ + + + | Date | Type | Specialty | Care Team | Description | +--------+---------+ + + + | 03/03/ | Office | Otolaryngology | Naeved Adams MD | | | 2020 | Visit | | [address] | | | | | | [address] [place] | | | | | | [address] | | | | | | | | +--------+---------+ + + + + +------+--------+ + + | Name | Type | Priori | Associated Diagnoses | Order Schedule | | | | ty | | | + +------+--------+ + + | Lipid Panel | Lab | Routin | Hyperlipidemia | Expected: | | | | e | | 04/04/2015, Expires: | | | | | | 02/29/2016 | + +------+--------+ + + | Hepatic Function | Lab | Routin | Hyperlipidemia | Expected: | | Panel | | e | | 04/04/2015, Expires: | | | | | | 02/29/2016 | + +------+--------+ + + documented as of this encounter Visit Diagnoses + + | Diagnosis | + + | Bradycardia - Primary Other specified cardiac dysrhythmias | + + | SOB (shortness of breath) on exertion Shortness of breath | + + | Essential hypertension Unspecified essential hypertension | + + | Hyperlipidemia Other and unspecified hyperlipidemia | + + documented in this encounter
--- OUTSIDE RECORDS SUMMARY | ~2020-02-25 | XMS | Encounter Summary ---
Demographics + + + | Address | [address]. | | | [place] [address] | + + + | Home Phone | | + + + | Preferred Language | Unknown | + + + | Marital Status | | + + + | Baptist Affiliation | Unknown | + + + | Race | White | + + + | Ethnic Group | Not or | + + + Author + + + | Author | [facility] | | | and [place] | + + + | Organization | [facility] | | | [...] Team Providers + +------+ + | Care Brickmason Supervisor Name | Role | Phone | + +------+ + PCP | Unavailable | + +------+ + Reason for Visit + + + | Reason | Comments | + + + | Medication Refill | | + + + Encounter Details +--------+--------+ + + + | Date | Type | Department | Care Team | Description | +--------+--------+ + + + | 10/27/ | Refill | [facility] | Lul Arcos | Medication Refill | | 2013 | | [address] | MD Marcello [address] | | | | | [place], | [address] [place] | | | | | [place] [address] | [place] [address] | | | | | [phone] | [phone] | | | | | | | | +--------+--------+ + + + [...]
--- OUTSIDE RECORDS SUMMARY | ~2020-02-25 | XMS | Encounter Summary ---
Demographics + + + | Address | [address]. | | | [place] [address] | + + + | Home Phone | | + + + | Preferred Language | Unknown | + + + | Marital Status | | + + + | Mosque Affiliation | Unknown | + + + | Race | White | + + + | Ethnic Group | Not or | + + + Author + + + | Author | [facility] | | | and [place] | + + + | Organization | [facility] | | | and [...] Team Providers + +------+ + | Care Towel Inspector Name | Role | Phone | + +------+ + | Koko Orantes MD | PCP | | + +------+ + Reason for Visit + +--------+ + | Reason | Onset | Comments | | | Date | | + +--------+ + | Appointment | 05/01/ | cancelled appt on 04-17-16 needs to be r/s | | | 2015 | | + +--------+ + Encounter Details +--------+ + + + + | Date | Type | Department | Care Team | Description | +--------+ + + + + | 05/01/ | Telephone | [facility] | Lul Arcos | Appointment | | 2015 | | [address] | MD Marcello [address] | (cancelled appt on | | | | [place] [place], | [address] [place] | 04-17-16 needs to be | | | | [place] [address] | [place] [address] | r/s) | | | | [phone] | [phone] | | | | | | | [...] this encounter Miscellaneous Notes Telephone Encounter - Desiree Jaramillo - 06/18/2016 1:04 PM PST2nd letter mailed.Electronica lly signed by Desiree Jaramillo at 06/18/2016 1:04 PM PSTTelephone Encounter - Desiree Jaramillo - 05/07/2016 3:58 PM PST"unable to reach" letter mailed elephone Encounter - Desiree Jaramillo - 05/03/2016 9:54 AM PST3r d attempt: Called patient to reschedule. No answer, left a voicemail message for patient to call us back. elephone Encounter - Desiree Hassan ra - 05/02/2016 11:18 AM PSTCalled patient to reschedule. No answer, left a voicemai l message for patient to call us back. 1 1:21 AM PSTTelephone Encounter - Desiree Jaramillo - 05/01/2016 3:41 PM PSTPatient cancelled a ppointment with Dr. Arcos on 04-17-16 as she was going to be out of town. Called patient to reschedule. No answer, left a voicemail message for patient to call back. Electronically si gned by Desiree Jaramillo at 05/01/2016 3:42 PM PSTdocumented in this encounter Plan of Treatment [...]
--- OUTSIDE RECORDS SUMMARY | ~2020-02-25 | XMS | Encounter Summary ---
Demographics + + + | Address | [address] 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 [address] | | | Required | | uncertain | [address] | | | | | behavior of | [address] | [place], | | | | | skin | [place], | [place] [address] | | | | | Procedures | [place] [address] | Phone: | | | | | HI EXC SKIN | Phone: | [phone] | | | | | BENIG | [phone] | Fax: | | | | | 1.1-2CM | Fax: | [phone] | | | | | FACE,FACIAL | [phone] | | +--------+ + + + + + Encounter Details +--------+ + + + + | Date | Type | Department | Care Team | Description | +--------+ + + + + | 05/22/ | Orders Only | [facility] | Naveed Adams MD | 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
--- OUTSIDE RECORDS SUMMARY | ~2020-02-25 | XMS | Clinical Summary ---
Demographics + + + | Address | [address]. | | | [place] [address] | + + + | Home Phone | | + + + | Preferred Language | Unknown | + + + | Marital Status | | + + + | Druze Affiliation | Unknown | + + + | Race | White | + + + | Ethnic Group | Not or | + + + Author + + + | Author | [facility] | | | and [place] | + + + | Organization | [facility] | | | [...] Team Providers + +------+ + | Care Mine Utility Operator Name | Role | Phone | + +------+ + | Peter Phillips MD | PCP | | + +------+ + Allergies + + + +--------+ + | Active Allergy | Reactions | Severity | Noted | Comments | | | | | Date | | + + + +--------+ + | Lisinopril | Cough | | | | + + + +--------+ + | Penicillins | Rash | Low | | | + + + +--------+ + Medications + + + +---------+------+------+-------+ | Medication | Sig | Dispensed | Refills | Star | End | Statu | | | | | | t | Date | s | | | | | | Date | | | + + + +---------+------+------+-------+ | travoprost | 1 drop once a day at | | 0 | 09/1 | | Activ | | (TRAVATAN Z) 0.004% | bedtime | | | 4/20 | | e | | ophthalmic solution | | | | 12 | | | + + + +---------+------+------+-------+ +---+ + | | Additional | | | InformationPatient | | | taking differently: | | | 1 drop Both Eyes | | | NIGHTLY, Reported on | | | 09/05/2015 11:57 AM | +---+ + + + +---------+---+------+---+-------+ | | Place 1 drop into | | 0 | | | Activ | | Brinzolamide-Brimoni | the left eye 3 times | | | | | e | | dine (SIMBRINZA) | daily. | | | | | | | 1-0.2 % SUSP | | | | | | | + + +---------+---+------+---+-------+ | timolol maleate | Place 1 drop into | | 0 | | | Activ | | (TIMOPTIC) 0.5% | both eyes 2 times | | | | | e | | ophthalmic solution | daily. | | | | | | + + +---------+---+------+---+-------+ | carvedilol (COREG) | Take 1 tablet by | 180 | 3 | / | | Activ | | 3.125 mg | mouth 2 times daily | tablet | | 02/20 | | e | | tabletIndications: | To lower blood | | | 20 | | | | Essential | pressure and heart | | | | | | | hypertension | rate. | | | | | | + + +---------+---+------+---+-------+ | pravastatin | Take 1 tablet by | 90 | 3 | 11/02 | | Activ | | (PRAVACHOL) 40 MG | mouth nightly To | tablet | | 02/20 | | e | | tabletIndications: | lower cholesterol | | | 20 | | | | Hyperlipidemia, | and reduce risk of | | | | | | | unspecified | heart attack. | | | | | | | hyperlipidemia type | | | | | | | + + +---------+---+------+---+-------+ | indomethacin | Take 1 capsule by | 60 | 1 | 11/02 | | Activ | | (INDOCIN) 25 mg | mouth Daily as | capsule | | 02/20 | | e | | capsuleIndications: | needed for Pain. | | | 20 | | | | Chronic gout of left | | | | | | | | ankle, unspecified | | | | | | | | cause, Chronic right | | | | | | | | shoulder pain | | | | | | | + + +---------+---+------+---+-------+ | levothyroxine | Take 1 tablet by | 90 | 0 | / | | Activ | | (SYNTHROID) 25 mcg | mouth every morning | tablet | | 10/20 | | e | | tabletIndications: | (before breakfast) | | | 20 | | | | Hypothyroidism, | For low thyroid. | | | | | | | unspecified type | | | | | | | + + +---------+---+------+---+-------+ | amLODIPine | Take 1 tablet by | 90 | 1 | 12/02 | | Activ | | (NORVASC) 10 MG | mouth Daily To lower | tablet | | 02/20 | | e | | tabletIndications: | blood pressure. | | | 20 | | | | Essential | | | | | | | | hypertension | | | | | | | + + +---------+---+------+---+-------+ Active Problems + + + | Problem | Noted Date | + + + | Stage 3 chronic kidney disease | 04/22/2019 | + + + | Impaired fasting glucose | 04/28/2018 | + + + + + | Overview: 04/2018: Glucose 129 but question if true fasting. | | A1c normal. | + + + + + | Hyperlipidemia | 11/14/2017 | + + + | Bradycardia | 04/02/2013 | + + + + + | Overview: Holter Monitor 02/03/13. | + + + + + | Gout | 01/20/2013 | + + + | Goiter | 01/20/2013 | + + + | Hypothyroidism | 01/20/2013 | + + + | Hypertension | 01/20/2013 | + + + | Glaucoma | 01/20/2013 | + + + + + | Overview: Followed by Dr Moreira | + + + + + | Diverticulosis | 09/14/2011 | + + + Resolved Problems + + + + | Problem | Noted | Resolved | | | Date | Date | + + + + | Depression | 01/21/20 | | | | 13 | 8 | + + + + | SOB (shortness of breath) on exertion | 01/21/20 | | | | 13 | 8 | + + + + + + | Overview: Echo 03/16/13, LVEF 58%. | | Nuclear Stress Test 03/16/13, LVEF 41%. | + + Encounters +--------+ + + + + | Date | Type | Specialty | Care Team | Description | +--------+ + + + + | 12/29/ | Telephone | Family Medicine | Peter Phillips, | Medication Refill | | 2019 | | | MD | | +--------+ + + + + | 12/15/ | Telephone | Family Medicine | Peter Phillips, | Medication Refill | | 2019 | | | MD | | +--------+ + + + + | 12/08/ | Off-Site | Otolaryngology | Naveed Adams MD | Basal cell carcinoma | | 2019 | Visit | | | (BCC) of skin of | | | | | | lip (Primary Dx); | | | | | | Neoplasm of | | | | | | uncertain behavior | | | | | | of skin | +--------+ + + + + | 12/01/ | Off-Site | Otolaryngology | Naveed Adams MD | Neoplasm of | | 2019 | Visit | | | uncertain behavior | | | | | | of skin (Primary Dx) | +--------+ + + + + | 12/01/ | Orders Only | Otolaryngology | Naveed Adams MD | Neoplasm of | | 2020 | | | | uncertain behavior | | | | | | of skin (Primary Dx) | +--------+ + + + + | 11/29/ | Office | Family Medicine | Peter Phillips, | Encounter for | | 2019 | Visit | | | Medicare annual | | | | | | wellness exam | | | | | | (Primary Dx); | | | | | | Essential | | | | | | hypertension; | | | | | | Hypothyroidism, | | | | | | unspecified type; | | | | | | Hyperlipidemia, | | | | | | unspecified | | | | | | hyperlipidemia type; | | | | | | CKD (chronic kidney | | | | | | disease) stage 3, | | | | | | GFR 30-59 ml/min | | | | | | (HCC); Chronic gout | | | | | | of left ankle, | | | | | | unspecified cause; | | | | | | Chronic right | | | | | | shoulder pain | +--------+ + + + + from Last 3 Months Family History + + +------+ + | Medical History | Relation | Name | Comments | + + +------+ + | No known problems | Daughter | | | + + +------+ + | Other (see comment) | Daughter | | from complications of pulmonary HTN | | | | | age 50 | + + +------+ + | Heart disease | Father | | | + + +------+ + | Cancer | Mother | | | + + +------+ + | Kidney disease | Mother | | | + + +------+ + + +------+ + + | Relation | Name | Status | Comments | + +------+ + + | Daughter | | Alive | | + +------+ + + | Daughter | | | | + +------+ + + | Father | | | age 99 | + +------+ + + | Maternal Grandfather | | | | + +------+ + + | Maternal Grandmother | | | | + +------+ + + | Mother | | | renal failure, breast cancer | | | | (Age | | | | | 66) | | + +------+ + + | Paternal Grandfather | | | | + +------+ + + | Paternal Grandmother | | | | + +------+ + + | Sister | | Alive | | + +------+ + + Social History + +-------+ +--------+------+ [...] on file | | + + + Last Filed Vital Signs + + + + + | Vital Sign | Reading | Time Taken | Comments | + + + + + | Blood Pressure | 120/84 | 11/30/2019 1:51 PM | | | | | PDT | | + + + + + | Pulse | 60 | 11/30/2019 1:51 PM | | | | | PDT | | + + + + + | Temperature | 36.3 C (97.3 F) | 12/09/2019 1:47 PM | | | | | PDT | | + + + + + | Respiratory Rate | 20 | 11/30/2019 1:51 PM | | | | | PDT | | + + + + + | Oxygen Saturation | 97% | 11/30/2019 1:51 PM | | | | | PDT | | + + + + + | Inhaled Oxygen | - | - | | | Concentration | | | | + + + + + | Weight | 64.7 kg (142 lb 10.2 | 12/09/2019 1:47 PM | | | | oz) | PDT | | + + + + + | Height | 152.4 cm (5') | 12/09/2019 1:47 PM | | | | | PDT | | + + + + + | Body Mass Index | 27.86 | 12/09/2019 1:47 PM | | | | | PDT | | + + + + + Plan of Treatment +--------+---------+ + + + | Date | Type | Specialty | Care Team | Description | +--------+---------+ + + + | 03/03/ | Office | Otolaryngology | Naveed Adams MD | | | 2019 | Visit | | [address] | | | | | | [address] [place] | | | | | | [address] | | | | | | | | +--------+---------+ + + + + + + + + | Health Maintenance | Due Date | Last | Comments | | | | Done | | + + + + + | Vaccine: Influenza | | | | | (#1) | 0 | | | + + + + + | Hemoglobin A1c | | 04/22/20 | | | Screening | 0 | 19, | | | | | 04/28/20 | | | | | 18, | | | | | 04/03/20 | | | | | 17, | | | | | Addition | | | | | al | | | | | history | | | | | exists | | + + + + + | Med Mgmt: BUN | | 04/22/20 | | | | 0 | 19, | | | | | 04/28/20 | | | | | 18, | | | | | 04/03/20 | | | | | 17, | | | | | Addition | | | | | al | | | | | history | | | | | exists | | + + + + + | Med Mgmt: Cr | | 04/22/20 | | | | 0 | 19, | | | | | 04/28/20 | | | | | 18, | | | | | 04/03/20 | | | | | 17, | | | | | Addition | | | | | al | | | | | history | | | | | exists | | + + + + + | Med Mgmt: TSH | | 04/22/20 | | | | 0 | 19, | | | | | 04/28/20 | | | | | 18, | | | | | 04/03/20 | | | | | 17, | | | | | Addition | | | | | al | | | | | history | | | | | exists | | + + + + + | Medication | | 04/22/20 | | | Management | 0 | 19 | | + + + + + | Adult Annual | | 11/30/19 | | | Wellness Visit | | 20, | | | | | 11/30/19 | | | | | 20 | | + + + + + | Vaccine: | | | Postponed from 10/12/1955 (Patient | | Dtap/Tdap/Td (1 - | 9 | | Declined) | | Tdap) | | | | + + + + + | Vaccine: | | | Postponed from 2001 (Patient | | Pneumococcal 65+ (1 | 9 | | Declined) | | of 1 - PPSV23) | | | | + + + + + | Vaccine: Zoster (1 | | | Postponed from 1986 (Patient | | of 2) | 9 | | Declined) | + + + + + Procedures + +--------+ + + + | [...] section. | + +--------+ + + + from Last 3 Months Results Surgical Pathology Exam (12/02/2019 12:00 AM [...] by approximately 2 | | | mm. J[facility]:C2NR MICROSCOPIC EXAMINATION: Histologic sections | | | of all submitted blocks are examined by light microscopy. These | | | findings, together with the gross examination, support the pathologic | | | diagnosis. Immunostains are performed on block (B1) and show the | | | following: - CK5: Positive in tumor cells. - P63: Positive in | | | tumor nuclei. [facility] GROSS DESCRIPTION: Two specimens are | | [...] performance | | | characteristics determined by [facility]. It has not been | | | cleared or approved by the U.S. Food and Drug Administration. The | | | FDA has determined that such clearance or approval is not necessary. | | | This test is used for clinical purposes. It should not be regarded | | | as investigational or for research. [facility] is certified | | | under the Clinical Laboratory Improvement Amendments of 1988 (CLIA) | | | as qualified to perform high complexity clinical laboratory testing. | | | PERFORMING LABORATORY: The technical component was performed by | | | [facility], [address] [place] [id number] (Medical | | | Director: Constance Palomares MD; CLIA# [id number]). Professional | | | interpretation was performed by [facility] [place] | | | [facility], [address] [place] [address] | | | [id number] (Accounts Clerk: Erick Carbone M.D.). Diagnostician: | | | Erick Carbone MD Pathologist Electronically Signed 12/07/2019 | | | | | + + + + +---------+ + + | Performing | Address | City/State/Zipcode | Phone Number | | Organization | | | | + +---------+ + + | [facility] | | | | | [place] | | | | + +---------+ + + from Last 3 Months Insurance + +--------+ +--------+ +---------+--------+ | Payer | Benefi | Subscriber | Effect | Phone | Address | Type | | | t Plan | ID | peter | | | | | | / | | Dates | | | | | | Group | | | | | | + +--------+ +--------+ +---------+--------+ | MEDICARE | MEDICA | [id number] | | [phone] | | Medica | | | RE | | 006-Pr | 5 | | re | | | PART A | | esent | | | | | | AND B | | | | | | + +--------+ +--------+ +---------+--------+ | | CHAMPV | [id number] | | [phone] | | Indemn | | | A | | 015-Pr | 7 | | ity | | | | | esent | | | | + +--------+ +--------+ +---------+--------+ + +--------+ +--------+ + + | Guarantor Name | Accoun | Relation to | Date | Phone | Billing Address | | | t Type | Patient | of | | | | | | | | | | + +--------+ +--------+ + + | JimDawnNaomi | Person | Self [birth year] | [address] | | | al/Fam | | 1936 | [phone] | [address] [place] | | | [place] | | | [address] (Home) | [phone] | + +--------+ +--------+ + + Advance Directives + + + + + | Type | Date Recorded | Patient | Explanation | | | | Vice President Marketing & Development | | + + + + + | Power of | | | | | Natural Resources Engineer | | | | + + + + + | Advance | | | | | Directive | | | | + + + + +
--- OUTSIDE RECORDS SUMMARY | ~2020-02-25 | XMS | Encounter Summary ---
Demographics + + + | Address | [address]. | | | [place] [address] | + + + | Home Phone | | + + + | Preferred Language | Unknown | + + + | Marital Status | | + + + | Caodaism Affiliation | Unknown | + + + | Race | White | + + + | Ethnic Group | Not or | + + + Author + + + | Author | [facility] | | | and [place] | + + + | Organization | [facility] | | [...] Team Providers + +------+ + | Care Banquet Prep Cook Name | Role | Phone | + +------+ + | Peter Phillips MD | PCP | | + +------+ + Reason for Visit + + + | Reason | Comments | + + + | Follow-up | suture removal of right forehead and left arm lesions | + + + Encounter Details +--------+ + + + + | Date | Type | Department | Care Team | Description | +--------+ + + + + | 12/08/ | Off-Site | [facility] | Naveed Adams MD | Basal cell carcinoma | | 2020 | Visit | OTOLARYNGOLOGY [address] | [address] | (BCC) of skin of | | | | [address] | [address] [place] | lip (Primary Dx); | | | | [place] | [address] | Neoplasm of | | | | [address] | | uncertain behavior | | | | [phone] | | of skin | +--------+ + + + + Social [...] encounter Progress Notes Naveed Adams MD - 12/09/2019 1:45 PM PDTPatient postop removal of 2 lesions. The larges t one on her left arm was a basal cell carcinoma and had what appears to be free margins. T he one on the forehead was a benign lesion and diagnosed as a seborrheic keratosis. Patient comes in for suture removal and the sutures were removed without trouble. The wound is hea ling very nicely and no evidence of any infection. Impression: Postop stable. Plan: Patient will apply some vitamin E to the incisions as they healed to keep them soft. She will recheck with ENT if any problems.Electronically signed by Naveed Adams MD at 01/2020 2:04 PM PDTdocumented in this encounter Plan of Treatment +--------+---------+ + + + | Date | Type | Specialty | Care Team | Description | +--------+---------+ + + + | 03/03/ | Office | Otolaryngology | Naveed Adams MD | | | 2019 | Visit | | [address] [place] | | | | | | [address] [place] | | | | | | [address] | | | | | | | | +--------+---------+ + + + documented as of this encounter Visit Diagnoses + + | Diagnosis | + + | Basal cell carcinoma (BCC) of skin of lip - Primary | + + | Neoplasm of uncertain behavior of skin | + + documented in this encounter"
--- OUTSIDE RECORDS SUMMARY | ~2020-02-25 | XMS | Encounter Summary ---
Demographics + + + | Address | [address]. | | | [place] [address] | + + + | Home Phone | | + + + | Preferred Language | Unknown | + + + | Marital Status | | + + + | Synagogue Affiliation | Unknown | + + + | Race | White | + + + | Ethnic Group | Not or | + + + Author + + + | Author | [facility] | | | and [place] | + + + | Organization | [facility] | | | [...] Team Providers + +------+ + | Care Prototype Model Maker Name | Role | Phone | + +------+ + | Peter Phillips MD | PCP | | + +------+ + Reason for Visit + +--------+ + | Reason | Onset | Comments | | | Date | | + +--------+ + | Medication Refill | 12/15/ | | | | 2019 | | + +--------+ + Encounter Details +--------+ + + + + | Date | Type | Department | Care Team | Description | +--------+ + + + + | 12/15/ | Telephone | [facility] | Peter Phillips, | Medication Refill | | 2020 | | [facility] [place] | [address] | | | | | [address] | [place] | | | | | [place] | [address] | | | | | [address] | | | | | | [phone] | | | +--------+ + + + [...] Telephone Encounter - Aislinn Verduzco RN - 12/16/2019 9:51 AM PDTRefill(s) has been se nt to requested pharmacy. elephone Encounter - Sherry Ibarra - 12/16/2019 8:54 AM PDTMedication: levothyr oxine Strength: 25 mcg Directions: 1 a day Medication remainin week Quantity: 90 Pharmacy: [facility] Call/Mail/Operations Welder/Fax: fax Date of Last Refill:? Date of Last Visit: 11/30/19 Date of Next Visit: no future appointmentElectronically signed by Sherry Ibarra at 020 8:56 AM PDTdocumented in this encounter Plan of [...] [place] | | | | | | [phone] | | | | | | | | +--------+---------+ + + + documented as of this encounter Visit Diagnoses + + | Diagnosis | + + | Hypothyroidism, unspecified type | + + documented in this encounter"
--- OUTSIDE RECORDS SUMMARY | ~2020-02-25 | XMS | Encounter Summary ---
Demographics + + + | Address | [address] | | | [place] [address] | + + + | Home Phone | | + + + | Preferred Language | Unknown | + + + | Marital Status | | + + + | Evangelical Affiliation | Unknown | + + + | Race | White | + + + | Ethnic Group | Not or | + + + Author + + + | Author | [facility] | | | and [place] | + + + | Organization | [facility] | | [...] Team Providers + +------+ + | Care Validation Specialist Name | Role | Phone | + +------+ + PCP | Unavailable | + +------+ + Encounter Details +--------+ + + + + | Date | Type | Department | Care Team | Description | +--------+ + + + + | 02/17/ | Abstract | [facility] [place] | Ritchiemaude Lul | | | 2012 | | [address] | MD Marcello [address] | | | | | [place], | [address] [place] | | | | | [place] [address] | [place] [address] | | | | | [phone] | [phone] | | | | | | | [...] [place] | | | | | | [address] | | | | | | | | +--------+---------+ + + + documented as of this encounter Procedures + +--------+ + + + | Procedure Name | Priori | Date/Time | Associated Diagnosis | Comments | | | ty | | | | + +--------+ + + + | EXTERNAL LAB: ANNA | Routin | 02/03/2013 | | Results for this | | | e | | | procedure are in the | | | | | | results section. | + +--------+ + + + | ANNA DE LEON, | Routin | 02/03/2013 | | Results for this | | DIFFERENTIAL | e | | | procedure are in the | | | | | | results section. | + +--------+ + + + | EXTERNAL LAB: AST | Routin | 02/03/2013 | | Results for this | | | e | | | procedure are in the | | | | | | results section. | + +--------+ + + + | EXTERNAL LAB: ALT | Routin | 02/03/2013 | | Results for this | | | e | | | procedure are in the | | | | | | results section. | + +--------+ + + + | EXTERNAL LAB: TSH | Routin | 02/03/2013 | | Results for this | | | e | | | procedure are in the | | | | | | results section. | + +--------+ + + + | EXTERNAL LAB: | Routin | 02/03/2013 | | Results for this | | CHOLESTEROL, NON HDL | e | | | procedure are in the | | LP | | | | results section. | + +--------+ + + + | EXTERNAL LAB: | Routin | 02/03/2013 | | Results for this | | TRIGLYCERIDES | e | | | procedure are in the | | | | | | results section. | + +--------+ + + + | EXTERNAL LAB: | Routin | 02/03/2013 | | Results for this | | CHOLESTEROL, HDL | e | | | procedure are in the | | | | | | results section. | + +--------+ + + + | EXTERNAL LAB: | Routin | 02/03/2013 | | Results for this | | CHOLESTEROL, TOTAL | e | | | procedure are in the | | | | | | results section. | + +--------+ + + + | EXTERNAL LAB: | Routin | 02/03/2013 | | Results for this | | CHOLESTEROL, LDL | e | | | procedure are in the | | | | | | results section. | + +--------+ + + + | EXTERNAL LAB: EGFR | Routin | 02/03/2013 | | Results for this | | | e | | | procedure are in the | | | | | | results section. | + +--------+ + + + | EXTERNAL LAB: | Routin | 02/03/2013 | | Results for this | | CREATININE | e | | | procedure are in the | | | | | | results section. | + +--------+ + + + | LIPID PANEL | Routin | 02/03/2013 | | Results for this | | | e | | | procedure are in the | | | | | | results section. | + +--------+ + + + | COMPREHENSIVE | Routin | 02/03/2013 | | Results for this | | METABOLIC PANEL | e | | | procedure are in the | | | | | | results section. | + +--------+ + + + documented in this encounter Results External Lab: CBC (02/03/2013) + +-------+ + + + | Component | Value | Ref Range | Performed | Pathologist | | | | | At | Signature | + +-------+ + + + | WBC, | 6.3 | | | | | External | | | | | + +-------+ + + + | HGB, | 12.9 | | | | | External | | | | | + +-------+ + + + | HCT, | 39.5 | | | | | External | | | | | + +-------+ + + + | PLT, | 192 | | | | | External | | | | | + +-------+ + + + External Lab: AST (02/03/2013) + +-------+ + + + | Component | Value | Ref Range | Performed | Pathologist | | | | | At | Signature | + +-------+ + + + | AST, | 17 | | | | | External | | | | | + +-------+ + + + + + | Specimen | + + | Blood specimen | | (specimen) | + + External Lab: ALT (02/03/2013) + +-------+ + + + | Component [...] | (specimen) | + + External Lab: TSH (02/03/2013) + +-------+ + + + | Component | Value | Ref Range | Performed | Pathologist | | | | | At | Signature | + +-------+ + + + | TSH, | 0.028 | | | | | External | | | | | + +-------+ + + + + + | Specimen | + + | Blood specimen | | (specimen) | + + External Lab: Cholesterol, Non HDL LP (02/03/2013) + +-------+ + + + | Component | Value | Ref Range | Performed | Pathologist | | | | | At | Signature | + +-------+ + + + | Cholesterol | 138 | | | | | , Total, | | | | | | Non HDL-C | | | | | | (LDL+VLDL), | | | | | | External | | | | | + +-------+ + + + + + | Specimen | + + | Blood specimen | | (specimen) | + + External Lab: Triglycerides (02/03/2013) + +-------+ + + + | Component | Value | Ref Range | Performed | Pathologist | | | | | At | Signature | + +-------+ + + + | Triglycerid | 70 | | | | | es, | | | | | | External | | | | | + +-------+ + + + + + | Specimen | + + | Blood specimen | | (specimen) | + + External Lab: Cholesterol, HDL (02/03/2013) + +-------+ + + + | Component | Value | Ref Range | Performed | Pathologist | | | | | At | Signature | + +-------+ + + + | HDL | 63.0 | | | | | Cholesterol | | | | | | , External | | | | | + +-------+ + + + + + | Specimen | + + | Blood specimen | | (specimen) | + + External Lab: Cholesterol, Total (02/03/2013) + +-------+ + + + | Component | Value | Ref Range | Performed | Pathologist | | | | | At | Signature | + +-------+ + + + | Cholesterol | 201 | | | | | , Total, | | | | | | External | | | | | + +-------+ + + + + + | Specimen | + + | Blood specimen | | (specimen) | + + External Lab: Cholesterol, LDL (02/03/2013) + +-------+ + + + | Component | Value | Ref Range | Performed | Pathologist | | | | | At | Signature | + +-------+ + + + | LDL | 124 | | | | | Cholesterol | | | | | | , Direct, | | | | | | External | | | | | + +-------+ + + + + + | Specimen | + + | Blood specimen | | (specimen) | + + External Lab: eGFR (02/03/2013) + +-------+ + + + | Component | Value | Ref Range | Performed | Pathologist | | | | | At | Signature | + +-------+ + + + | eGFR, | 48 | | | | | External | | | | | + +-------+ + + + | eGFR, | | | | | | | | | | | | Bulgarian, | | | | | | External | | | | | + +-------+ + + + + + | Specimen | + + | Blood specimen | | (specimen) | + + External Lab: Creatinine (02/03/2013) + +-------+ + + + | Component | Value | Ref Range | Performed | Pathologist | | | | | At | Signature | + +-------+ + + + | Creatinine, | 1.11 | | | | | External | | | | | + +-------+ + + + + + | Specimen | + + | Blood specimen | | (specimen) | + + Comprehensive Metabolic Panel (02/03/2013) + +-------+ + + + | Component | Value | Ref Range | Performed | Pathologist | | | | | At | Signature | + +-------+ + + + | Na | 140 | mmol/L | [facility] | | | [...] +-------+ + + + | Chloride | 105 | | [facility] | | | | | | [facility] | | | [facility] | | | | [facility] - | | | | | | [facility] | | + +-------+ + + + | CO2 | 26 | mmol/L | [facility] | | | | | | [facility] | | | | | | [facility] | | | | [facility] - | | | | | | [facility]ORY | | + +-------+ + + + | Anion Gap | 13 | mmol/L | [facility] | | | | | | [facility] | | | | [facility] | | | | [facility] - | | | | | | [facility]ORY | | + +-------+ + + + | Glucose | 117 | mg/dL | [facility] | | | | | | [facility] | | | | | | [facility] | | | | [facility] - | | | | | | [facility]ATORY | | + +-------+ + + + | BUN | 27 | mg/dL | [facility] | | | | | | [facility] | | | | | | [facility] | | | | [facility] - | | | | | | LAB[facility]ATORY | | + +-------+ + + + | Bun/Creatin | 24.3 | | [facility] | | | ine | | | [facility] | | | | | | [facility] | | | | | | [facility] - | | | | | | LAB[facility]ATORY | | + +-------+ + + + | Calcium | 9.9 | mg/dL | [facility] | | | [...] +-------+ + + + | Albumin | 4.2 | 3.3 - 4.8 g/dL | [facility] | | | | | | [facility] | | [facility] | | | [facility] | | | | | [facility] - | | | | | | LAB[facility]ATORY | | + +-------+ + + + | Globulin | 2.3 | | [facility] | | | | | | [facility] | | | | | [facility] | | | | | [facility] - | | | | | | LAB[facility]ATORY | | + +-------+ + + + | Albumin/Felipa | 1.8 | | [facility] | | | bulin Ratio | | | [facility] | | | | | | [facility] | | | | | | [facility] - | | | | | | LAB[facility]ATORY | | + +-------+ + + + | Bilirubin | 0.9 | 0.1 - 1.5 mg/dL | [facility] | | | Total | | | [facility] | | | | | | [facility] | | | | | | [facility] - | | | | | | LABORATORY | | + +-------+ + + + | Alkaline | 66 | 35 - 115 U/L | [facility] [...] + | [facility] | [address] | [place] | | | [facility] | | [address], [facility] | | | - LABORATORY | | | | + + + + + CBC Reflex, Differntial (02/03/2013) + +-------+ + + + | Component | Value | Ref Range | Performed | Pathologist | | | | | At | Signature | + +-------+ + + + | RBC | 4.26 | 10*6/uL | | | + +-------+ + + + | MCV | 92.8 | 80.0 - 98.0 fL | | | + +-------+ + + + | MCH | 30.0 | 26.0 - 33.0 pg | | | + +-------+ + + + | MCHC | 33.0 | 30.0 - 36.0 % | | | + +-------+ + + + | RDW-CV | 14.6 | 11.0 - 15.0 % | | | + +-------+ + + + + + | Specimen | + + | Blood specimen | | (specimen) | + + Lipid Panel (02/03/2013) + +-------+ + + + | Component | Value | Ref Range | Performed | Pathologist | | | | | At | Signature | + +-------+ + + + | Chol/HDL | 3.2 | | | | | Ratio | | | | | + +-------+ + + + | VLDL | 14 | | | | | Cholesterol | | | | | | Edvin | | | | | + +-------+ + + + + + | Specimen | + + | Blood specimen | | (specimen) | + + documented in this encounter Visit Diagnoses Not on filedocumented in this encounter"
--- OUTSIDE RECORDS SUMMARY | ~2020-02-25 | XMS | Encounter Summary ---
Demographics + + + | Address | [address] | | | [place] [address] | + + + | Home Phone | | + + + | Preferred Language | Unknown | + + + | Marital Status | | + + + | Anabaptist Affiliation | Unknown | + + + | Race | White | + + + | Ethnic Group | Not or | + + + Author + + + | Author | [facility] | | | and [place] | + + + | Organization | [facility] | | | [...] Team Providers + +------+ + | Care Compensation Specialist Name | Role | Phone | + +------+ + | Peter Phillips MD | PCP | | + +------+ + Reason for Visit + + + | Reason | Comments | + + + | Follow-up | suture removal | + + + Encounter Details +--------+---------+ + + + | Date | Type | Department | Care Team | Description | +--------+---------+ + + + | 08/27/ | Office | [facility] | Naveed Adams MD | Neoplasm of | | 2019 | Visit | OTOLARYNGOLOGY [address] | [address] | uncertain behavior | | | | [address] [facility] [address] | [address] [place] | of skin (Primary Dx) | | | | [place] | [address] | | | | | [address] | | | | | | [phone] | | | +--------+---------+ + + + [...] + + + + | Pulse | 59 | 08/27/2018 11:06 AM | | | | | PDT | | + + + + + | Temperature | - | - | | + + + + + | Respiratory Rate | 16 | 08/27/2018 11:06 AM | | | | | PDT | | + + + + + | Oxygen Saturation | 94% | 08/27/2018 11:06 AM | | | | | PDT | | + + + + + | Inhaled Oxygen | - | - | | | Concentration | | | | + + + + + | Weight | 66.7 kg (147 lb) | 08/27/2018 11:06 AM | | | | | PDT | | + + + + + | Height | 152.4 cm (5') | 08/27/2018 11:06 AM | | | | | PDT | | + + + + + | Body Mass Index | 28.71 | 08/27/2018 11:06 AM | | | | | PDT | | + + + + + documented in this encounter Progress Notes Naveed Adams MD - 08/27/2018 11:00 AM PDTPatient po excision of left neck skin lesion. In for suture removal. Exam: Healing normal without evidence of infection or excess scaring. 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 Pt advised. 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
--- OUTSIDE RECORDS SUMMARY | ~2020-02-25 | XMS | Encounter Summary ---
Demographics + + + | Address | [address] | | | [place] [address] | + + + | Home Phone | | + + + | Preferred Language | Unknown | + + + | Marital Status | | + + + | Confucianist Affiliation | Unknown | + + + | Race | White | + + + | Ethnic Group | Not or | + + + Author + + + | Author | [facility] | | | and [place] | + + + | Organization | [facility] | | | and [...] Team Providers + +------+ + | Care Flight Operations Inspector Name | Role | Phone | [...] | [address] | | | | | skin | [place], | [address] [place] | | | | | Procedures | [place] [address] | [place], [place] | | | | | CT EXC SKIN | Phone: | [phone] | | | | | BENIG | [phone] | Phone: | | | | | 1.1-2CM | Fax: | [phone] | | | | | FACE,FACIAL | [phone] | Fax: | | | | | Appointment | | [phone] | | | | | | | [...] | +--------+ + + + + | 10/17/ | Orders Only | [facility] [place] | Naveed Adams MD | Neoplasm of | | 2019 | | OTOLARYNGOLOGY [address] | [address] | uncertain behavior | | | | [address] | [address] [place], [place] | of skin (Primary Dx) | | | | [place], [place] | [address] | | | | | [address] | | | | | | [phone] | | | +--------+ + + + [...] [place] | | | | | | [address] | | | | | | | | +--------+---------+ + + + + + +--------+ + + | Name | Type | Priori | Associated Diagnoses | Order Schedule | | | | ty | | | + + +--------+ + + | * LAMIN CORCORAN | Outpatient | Routin | Neoplasm of | Ordered: 10/20/2018 | | Otolaryngology - AMB | Referral [...]
--- OUTSIDE RECORDS SUMMARY | ~2020-02-25 | XMS | Encounter Summary ---
Demographics + + + | Address | [address] | | | [place] [address] | + + + | Home Phone | | + + + | Preferred Language | Unknown | + + + | Marital Status | | + + + | Orthodox Affiliation | Unknown | + + + | Race | White | + + + | Ethnic Group | Not or | + + + Author + + + | Author | [facility] | | | and [place] | + + + | Organization | [facility] | [...] Team Providers + +------+ + | Care Project Construction Manager Name | Role | Phone | + +------+ + | Peter Phillips MD | PCP | | + +------+ + Reason for Visit + + + | Reason | Comments | + + + | Medicare Wellness | | + + + | Medication Refill | | + + + Encounter Details +--------+---------+ + + + | Date | Type | Department | Care Team | Description | +--------+---------+ + + + | 11/29/ | Office | [facility] | Peter Phillips, | Encounter for | | 2020 | Visit | [facility] | [address] | Medicare annual | | | | [address] | [place], [place] | wellness exam | | | | [place], [place] | [address] | (Primary Dx); | | | | [address] | | Essential | | | | [phone] | | hypertension; | | | | [...] | | | | shoulder pain | +--------+---------+ + + + Social History [...] + + + + | Temperature | 36.1 C (96.9 F) | 11/30/2019 1:51 PM | | | [...] | 64.7 kg (142 lb 10.2 | 11/30/2019 1:51 PM | | | | oz) | PDT | | + + + + + | Height | - | - | | + + + + + | Body Mass Index | 27.86 | 11/19/2019 1:19 PM | | | | | PDT | | + + + + + documented in this encounter Patient Instructions Patient Instructions Peter Phillips MD - 11/30/2019 2:15 PM PDT Keep up the great work! Your blood pressure is outstanding. We will decrease the carvedilol 3.125 mg twice daily and continue the amlodipine 10 mg david y. Your blood pressure goal is less than 150/90 with a stretch goal less than 140/90. Please update us with your blood pressure after 4 weeks (you do not need to change it more than 2 times per week). Please stop by the lab for blood work in April. You need to be fasting - nothing to eat or drink other than water or black coffee for 10 hours. No alcohol for 24 hours. Lab Hours: Lisa [facility] Jamila Marino Out-Patient draw stations: ? Family Medicine @ [address] : Saturday, 7:00am 12:30pm (closes at 12:30) ? Urgent Care @ [address]: Saturday & Saturday, 8:00am 7:00pm ? [facility] (across from hospital) [address] [place] [address] Hours: Saturday 7:00am-5:30pm Personalized Preventive Plan This visit summary is your Medicare Wellness Personalized Preventive Plan. It is based on [facility] guidelines for recommended preventive services for you. Health Maintenance Topic Date Due Adult Annual Wellness Visit 02/18/2015 Vaccine: Dtap/Tdap/Td (1 - Tdap) 11/29/2098 (Originally 10/12/1954) Vaccine: Zoster (1 of 2) 11/29/2098 (Originally 1986) Vaccine: Pneumococcal 65+ (1 of 1 - PPSV23) 11/29/2098 (Originally 2001) Vaccine: Influenza (Season Ended) 2099 documented in this encounter Progress Notes Peter Phillips MD - 11/30/2019 2:15 PM PDTFormatting of this note might be different fr om the original. Medicare Annual Wellness Visit Naomi Fernandez is a 84 y.o. female who presents for a Medicare Wellness Visit. Subjective Her 14 yo dog in July. Despite this she feels very good. She walks 1 mile every single day x 30 minutes. She continues to do chores daily. Estim ates she walks at least 3 miles every day all told. Review of systems Constitutional: No fever, NS, weight loss, anorexia Eyes: Mild decreased vision in left eye. She continues eye drops. Has eye exam December 03 with [facility] - Dr Lipscomb Ears, nose, mouth, throat, and face: No concerning hearing loss, sore throat, difficulty sw allowing Respiratory: No cough, wheezing, SOB Cardiovascular: No light headedness, CP, palpitations, edema Gastrointestinal: No N/V, heartburn, abdominal, melena, hematochezia Genitourinary: No dysuria, hematuria, vaginal discharge, vaginal bleeding Integument/breast: He has a mole on right forehead and left arm that Dr Adams is going to e xcise. No breast lumps, nipple discharge, rash Hematologic/lymphatic: No abnormal bleeding, LAD Musculoskeletal: Has chronic mild right intermittent shoulder pain for which she rarely marlyn es indomethacin. She would like refill. No other joint/back pains. No gout flares. Neurological: No CHU's, dizziness Behavioral/Psych: Mood is good. Luisito by walking, gardening Endocrine: No polydipsia, polyuria, temp intolerance Health Risk Assessment The patient or their surrogate filled out the HRA; their responses are included here: (Printable questionnaire: Mohawk, Simplified East Timorese, Traditional East Timorese, Indian [large p rint], Croatian, Croatian, Vincentian, French) General health How would you rate your health compared to others your age? Better Hearing and vision 1. Do you feel that a hearing difficulty limits your life? No 2. Do you feel that a vision difficulty limits your life? No Activities of daily living 1. Do you need help with dressing, eating, bathing, going to the bathroom, walking, or gett ing in or out of bed? No 2. Do you need help with preparing meals, transportation, shopping, managing your finances, keeping house, making calls, or taking your medicine? No 3. If you drive, have you had a car accident in the last year, or have you been asked to st op driving? No 4. Who do you live with? Alone 5. Are you working or volunteering? If you do, what do you do, and for how many hours a week? Yes 6. 7. 11-20 Home safety Does your home have throw rugs, poor lighting, a slippery bathtub or shower or other hazard s? No Fall risk (STEADI questions Stopping Elderly Accidents, Deaths and Injuries) 1. Have you fallen in the past year? No a. If you have fallen, how many times? b. If you have fallen, were you injured? 2. Do you feel unsteady when standing or walking? No 3. Do you worry about falling? No Incontinence screening Do you have trouble holding your bowels or bladder? No Nutrition 1. How is your appetite? Good 2. Have you lost weight without meaning to in the last year? No 3. Do you eat two or more servings of fruits and vegetables every day? Yes Depression screening Depression screening performed with PHQ-9. PHQ-9 Depression Scale: 0 (11/30/19 1300) Interpretation: 1-4 = Minimal, 5-9 = Mild, 10-14 = Moderate, 15-19 = Moderately severe, 20- 27 = Severe depression 1. Little interest or pleasure in doing things?: Not at all (11/30/19 1300) 2. Feeling down, depressed, or hopeless?: Not at all (11/30/191299) 3. Trouble falling or staying asleep, or sleeping too much?: Not at all (11/30/191299) 4. Feeling tired or having little energy?: Not at all (11/30/191299) 5. Poor appetite or overeating?: Not at all (11/30/191299) 6. Feeling bad about yourself - or that you are a failure or have let yourself or your fami ly down?: Not at all (11/30/191299) 7. Trouble concentrating on things, such as reading the newspaper or watching television?: Not at all (11/30/191299) 8. Moving or speaking so slowly that other people could have noticed. Or the opposite - ken ng so fidgety or restless that you have been moving around a lot more than usual?: Not at al l (11/30/191299) 9. Thoughts that you would be better off , or of hurting yourself in some way?: Not at all (11/30/191299) Problem list Patient Active Problem List Diagnosis Diverticulosis Gout Goiter Hypothyroidism Hypertension Glaucoma Bradycardia Hyperlipidemia Impaired fasting glucose Stage 3 chronic kidney disease Medical, surgical and family history Past Medical History: Diagnosis Date Arthritis Bradycardia 04/02/2013 Holter Monitor 02/03/13. Cataract had surgery Depression 01/20/2013 Glaucoma 01/20/2013 Goiter 01/20/2013 Gout 01/20/2013 Heart murmur Hyperlipidemia Hypertension 01/20/2013 Hypothyroidism 01/20/2013 Renal cyst 01/20/2013 Skin cancer SOB (shortness of breath) on exertion 01/20/2013 Past Surgical History: Procedure Laterality Date APPENDECTOMY CATARACT REMOVAL Bilateral CATARACT REMOVAL WITH IMPLANT CHOLECYSTECTOMY COLONOSCOPY KNEE JOINT REPLACEMENT Right 2012 KNEE JOINT REPLACEMENT Left 08/2012 rhinoplasty TONSILLECTOMY TOTAL HYSTERECTOMY Due to fibroids. 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 Social Needs Financial resource strain: Not on file Food insecurity Worry: Not on file Inability: Not on file Transportation needs Medical: Not on file Non-medical: Not on file Tobacco Use Smoking status: Never Smoker Smokeless tobacco: Never Used Substance and Sexual Activity Alcohol use: Yes Alcohol/week: 4.0 standard drinks Types: 4 Glasses of wine per week Drug use: No Sexual activity: Not on file Lifestyle Physical activity Days per week: Not on file Minutes per session: Not on file Stress: Not on file Relationships Social connections Talks on phone: Not on file Gets together: Not on file Attends mandaeism service: Not on file Active member of club or organization: Not on file Attends meetings of clubs or organizations: Not on file Relationship status: Not on file Intimate partner violence Fear of current or ex partner: Not on file Emotionally abused: Not on file Physically abused: Not on file Forced sexual activity: Not on file Other Topics Concern Not on file Social History Narrative . Rohit from complications of agent orange in 2010 Children: 2 daughters. 1 age 50 from pulmonary HTN. Her other daughter live s in [facility]. Grandchildren: 2 Living situation: bought a cottage with her best friend who is also a retired nurse and wi deng. Endorses safety. 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 Daughter Jody is DPOA. However she is in [facility] and hard to get a hold of (she does not have a phone number, uses [employer]). Olivia Fowler (roommate) is back-up. She clearly states she is DNR/DNI. Lifestyle No lifestyle history on file. Current medications and allergies Current Outpatient Medications Medication Sig Dispense Refill amLODIPine (NORVASC) 10 MG tablet Take 1 tablet by mouth Daily. To lower blood pressure 90 tablet 1 Brinzolamide-Brimonidine (SIMBRINZA) 1-0.2 % SUSP Place 1 [...] br eakfast). For low thyroid 90 tablet 2 pravastatin (PRAVACHOL) 40 MG tablet Take 1 [...] for this visit. Allergies Allergen Reactions Lisinopril Cough Penicillins Rash Current list of providers and DME suppliers Patient Care Team: Peter Phillips MD as PCP - General (Family Medicine) Lul Arcos MD (Cardiology) Chris Briones DO as Physician (Family Medicine) Naveed Adams MD as Physician (Otolaryngology) MEDS BY MAIL [facility] [place] [address] [facility] [address] [place] [address] [id number] - [place], [place] - [address] [place] [address] Preventative care and screening (Attestation) Reviewed these health maintenance items: Health Maintenance Topic Date Due Vaccine: Dtap/Tdap/Td (1 - Tdap) 10/12/1954 Vaccine: Zoster (1 of 2) 1986 Vaccine: Pneumococcal 65+ (1 of 1 - PPSV23) 2001 Adult Annual Wellness Visit 02/18/2015 Vaccine: Influenza (Season Ended) 2020 Exam Vitals: BP 120/84 | Pulse 60 | Temp 36.1 C (96.9 F) | Resp 20 | Wt 64.7 kg (142 lb 10.2 oz) | SpO2 97% | BMI 27.86 kg/m Estimated body mass index is 27.86 kg/m as calculated from the following: Height as of 11/19/19: 1.524 m (5'). Weight as of this encounter: 64.7 kg (142 lb 10.2 oz). Vision and hearing screen (Visual acuity exam required for Welcome to Medicare/IP Visit): Hearing Screening 125Hz 250Hz 500Hz 1000Hz 2000Hz 3000Hz 4000Hz 6000Hz 8000Hz Right ear: Left ear: Vision Screening Comments: 11/29 unable to perform. Didn't bring her glasses General Appearance: Alert, cooperative, no distress, appears stated age Head: Normocephalic, without obvious abnormality, atraumatic Eyes: PERRL, conjunctiva/corneas clear, EOM's intact Ears: Normal TM's and external ear canals, both ears Neck: Supple, symmetrical, trachea midline, no adenopathy; thyroid: mild fullness, she reports stable for long time. No tenderness/nodules Back: Symmetric, no curvature, ROM normal, no CVA tenderness Lungs: Clear to auscultation bilaterally, respirations unlabored Chest Wall: No tenderness or deformity Heart: Regular rate and rhythm, S1 and S2 normal, no murmur, rub or gallop Abdomen: Soft, non-tender, bowel sounds active all four quadrants, no masses, no organomegaly Extremities: Extremities normal, atraumatic, no cyanosis or edema Pulses: 2+ and symmetric all extremities Skin: ~3 mm rough papule of right side of forehead, ~7 mm rough raised crusted papule of left upper arm. Lymph nodes: Cervical, supraclavicular, and inguinal nodes normal Neurologic: CNII-XII intact, normal strength, sensation and reflexes throughout Detection of Cognitive Impairment (Mini-Cog): negative Repeat three objects. Score one point for each correctly repeated item (e.g., banana, sunri se, chair): 3 Clock drawing test: normal 3 recalled words: negative for cognitive impairment 1-2 recalled words + normal clock-drawing: negative for cognitive impairment 1-2 recalled words + abnormal CDT: positive for cognitive impairment 0 recalled words: positive for cognitive impairment Timed Up and Go test Seconds it takes to get up from an arm chair, walk to a specified point (8-10 feet) turn ar ound, walk back, and sit again: <12 Seconds: Low Fall Risk (Normative reference values 60-69 years: 8.1 seconds, 70-79: 9.2 seconds, 80-99 11.3 se conds; > 14 seconds associated with high fall risk in community-dwelling frail older adul ts) VISHNU Fall risk questionnaire score: 0 Recommendations Recommended the following based on the Health Risk Assessment, patient history and discussi on: Care Management referral indicated for this patient: no Diet: DASH/Mediterranean Exercise: Continue great work Substances: No risky substance use noted. Medications: Reviewed current medications and supplements Reviewed opportunities for de-prescribing; no changes made Immunizations: She declines all vaccines Screening exams: Declines DEXA Health risk appraisal attestation: The Health Risk Assessment form was reviewed with the pa yue/surrogate, and recommendations made for Naomi Fernandez based on her risk factors. Personalized Preventive Plan attestation: We reviewed a Personalized Care Plan for Ms. Melodie santacruz based on the above discussion, and made it available in the After Visit Summary. Advance Care Planning (Recommended, not required element of visit) Do you have an Advance Care Plan with designation of a Health Care Application Support Engineer? Yes Advance directive and/or POLST discussed during this visit. Reminded to bring in copy of Ad kraft Directive for us to scan into chart. She clearly states she is DNR/DNI Essential hypertension: Well controlled - Decrease coreg - amLODIPine (NORVASC) 10 MG tablet; Take 1 tablet by mouth Daily To lower blood pressu re. - carvedilol (COREG) 3.125 mg tablet; Take 1 tablet by mouth 2 times daily To lower blo od pressure and heart rate. Hypothyroidism, unspecified type - levothyroxine (SYNTHROID) 25 mcg tablet; Take 1 tablet by mouth every morning (before breakfast) For low thyroid. - TSH; Future Hyperlipidemia, unspecified hyperlipidemia type: Primary prevention - pravastatin (PRAVACHOL) 40 MG tablet; Take 1 tablet by mouth nightly To lower cholest sanjana and reduce risk of heart attack. - Lipid Panel; Future CKD (chronic kidney disease) stage 3, GFR 30-59 ml/min ([facility]) - BP control, hydration, limit nephrotoxic medications (ok for rare indomethacin Chronic right shoulder pain: Previously evaluated by orthopedics. Declines surgical interv ention - OK for rare indomethacin Return in about 6 months (around 05/31/2020), or if symptoms worsen or fail to improve. Francisco Phillips MD documented in this e [...] [place] | | | | | | [address] | | | | | | | | +--------+---------+ + + + + +------+--------+ + + | Name | Type | Priori | Associated Diagnoses | Order Schedule | | | | ty | | | + +------+--------+ + + | TSH | Lab | Routin | Hypothyroidism, | 1 Occurrences | | | | e | unspecified type | starting 11/30/2019 | | | | | | until 11/29/2020 | + +------+--------+ + + | Lipid Panel | Lab | Routin | Hyperlipidemia, | 1 Occurrences | | | | e | unspecified | starting 11/30/2019 | | | | | hyperlipidemia type | until 11/29/2020 | + +------+--------+ + + documented as of this encounter Visit Diagnoses + + | Diagnosis | + + | Encounter for Medicare annual wellness exam - Primary Routine general medical | | examination at a health [facility] facility | + + | Essential hypertension Unspecified essential hypertension | + + | Hypothyroidism, unspecified type | + + | Hyperlipidemia, unspecified hyperlipidemia type | + + | CKD (chronic kidney disease) stage 3, GFR 30-59 ml/min (HCC) Chronic kidney disease, | | Stage III (moderate) | + + | Chronic gout of left ankle, unspecified cause | + + | Chronic right shoulder pain Pain in joint, shoulder region | + + documented in this encounter"
--- OUTSIDE RECORDS SUMMARY | ~2020-02-25 | XMS | Encounter Summary ---
Demographics + + + | Address | [address]. | | | [place] [address] | + + + | Home Phone [...] Team Providers + +------+ + | Care Network Engineer Administrator Name | Role | Phone | + +------+ + | Koko Orantes MD | PCP | | + +------+ + Encounter Details +--------+ + + + + | Date | Type | Department | Care Team | Description | +--------+ + + + + | 02/28/ | Abstract | [facility] | Lul Arcos | | | 2014 | | CARDIOLOGY [address] | MD Marcello [address] | | | | | [place], | [address] [place] | | | | | [place] [address] | [place] [address] | | | | | [phone] | [phone] | | | | | | | [...] [place] | | | | | | [address] | | | | | | | | +--------+---------+ + + + documented as of this encounter Procedures + +--------+ + + + | Procedure Name | Priori | Date/Time | Associated Diagnosis | Comments | | | ty | | | | + +--------+ + + + | EXTERNAL LAB: NEIL | Routin | 02/25/2015 | | Results for this | | | e | | | procedure are in the | | | | | | results section. | + +--------+ + + + | EXTERNAL LAB: | Routin | 02/25/2015 | | Results for this | | GLUCOSE | e | | | procedure are in the | | | | | | results section. | + +--------+ + + + | EXTERNAL LAB: ALT | Routin | 02/25/2015 | | Results for this | | | e | | | procedure are in the | | | | | | results section. | + +--------+ + + + | EXTERNAL LAB: AST | Routin | 02/25/2015 | | Results for this | | | e | | | procedure are in the | | | | | | results section. | + +--------+ + + + | EXTERNAL LAB: | Routin | 02/25/2015 | | Results for this | | ALKALINE PHOSPHATASE | e | | | procedure are in the | | | | | | results section. | + +--------+ + + + | EXTERNAL LAB: | Routin | 02/25/2015 | | Results for this | | BILIRUBIN, TOTAL | e | | | procedure are in the | | | | | | results section. | + +--------+ + + + | EXTERNAL LAB: | Routin | 02/25/2015 | | Results for this | | ALBUMIN | e | | | procedure are in the | | | | | | results section. | + +--------+ + + + | EXTERNAL LAB: | Routin | 02/25/2015 | | Results for this | | PROTEIN, TOTAL | e | | | procedure are in the | | | | | | results section. | + +--------+ + + + | EXTERNAL LAB: CARBON | Routin | 02/25/2015 | | Results for this | | DIOXIDE | e | | | procedure are in the | | | | | | results section. | + +--------+ + + + | EXTERNAL LAB: | Routin | 02/25/2015 | | Results for this | | CHLORIDE | e | | | procedure are in the | | | | | | results section. | + +--------+ + + + | EXTERNAL LAB: | Routin | 02/25/2015 | | Results for this | | POTASSIUM | e | | | procedure are in the | | | | | | results section. | + +--------+ + + + | EXTERNAL LAB: SODIUM | Routin | 02/25/2015 | | Results for this | | | e | | | procedure are in the | | | | | | results section. | + +--------+ + + + | EXTERNAL LAB: | Routin | 02/25/2015 | | Results for this | | TRIGLYCERIDES | e | | | procedure are in the | | | | | | results section. | + +--------+ + + + | EXTERNAL LAB: | Routin | 02/25/2015 | | Results for this | | CHOLESTEROL, HDL | e | | | procedure are in the | | | | | | results section. | + +--------+ + + + | EXTERNAL LAB: | Routin | 02/25/2015 | | Results for this | | CHOLESTEROL, TOTAL | e | | | procedure are in the | | | | | | results section. | + +--------+ + + + | EXTERNAL LAB: | Routin | 02/25/2015 | | Results for this | | CHOLESTEROL, LDL | e | | | procedure are in the | | | | | | results section. | + +--------+ + + + | EXTERNAL LAB: EGFR | Routin | 02/25/2015 | | Results for this | | | e | | | procedure are in the | | | | | | results section. | + +--------+ + + + | EXTERNAL LAB: | Routin | 02/25/2015 | | Results for this | | CREATININE | e | | | procedure are in the | | | | | | results section. | + +--------+ + + + documented in this encounter Results External Lab: NEIL (02/25/2015) + +-------+ + + + | Component | Value | Ref Range | Performed | Pathologist | | | | | At | Signature | + +-------+ + + + | NEIL, | 23 | | | | | External | | | | | + +-------+ + + + + + | Resulting Agency Comment | + + | [facility] | + + External Lab: Glucose (02/25/2015) + +---------+ + + + | Component | Value | Ref Range | Performed | Pathologist | | | | | At | Signature | + +---------+ + + + | Glucose, | 120 (A) | 70 - 100 | | | | External | | | | | + +---------+ + + + + + | Resulting Agency Comment | + + | [facility] | + + External Lab: ALT (02/25/2015) + +-------+ + + + | Component | Value | Ref Range | Performed | Pathologist | | | | | At | Signature | + +-------+ + + + | ALT, | 15 | | | | | External | | | | | + +-------+ + + + + + | Resulting Agency Comment | + + | [facility] | + + External Lab: AMITA (02/25/2015) + +-------+ + + + | Component | Value | Ref Range | Performed | Pathologist | | | | | At | Signature | + +-------+ + + + | AST, | 14 | | | | | External | | | | | + +-------+ + + + + + | Resulting Agency Comment | + + | [facility] | + + External Lab: Alkaline Phosphatase (02/25/2015) + +-------+ + + + | Component | Value | Ref Range | Performed | Pathologist | | | | | At | Signature | + +-------+ + + + | ALP, | 61 | | | | | External | | | | | + +-------+ + + + + + | Resulting Agency Comment | + + | [facility] | + + External Lab: Bilirubin, Total (02/25/2015) + +-------+ + + + | Component | Value | Ref Range | Performed | Pathologist | | | | | At | Signature | + +-------+ + + + | Bilirubin, | 0.7 | | | | | Total, | | | | | | External | | | | | + +-------+ + + + + + | Resulting Agency Comment | + + | [facility] | + + External Lab: Albumin (02/25/2015) + +-------+ + + + | Component | Value | Ref Range | Performed | Pathologist | | | | | At | Signature | + +-------+ + + + | Albumin, | 3.9 | | | | | External | | | | | + +-------+ + + + + + | Resulting Agency Comment | + + | [facility] | + + External Lab: Protein, Total (02/25/2015) + +-------+ + + + | Component | Value | Ref Range | Performed | Pathologist | | | | | At | Signature | + +-------+ + + + | Protein, | 6.6 | | | | | Total, | | | | | | External | | | | | + +-------+ + + + + + | Resulting Agency Comment | + + | [facility] | + + External Lab: Carbon Dioxide (02/25/2015) + +-------+ + + + | Component | Value | Ref Range | Performed | Pathologist | | | | | At | Signature | + +-------+ + + + | Carbon | 23 | | | | | Dioxide, | | | | | | External | | | | | + +-------+ + + + + + | Resulting Agency Comment | + + | [facility] | + + External Lab: Chloride (02/25/2015) + +-------+ + + + | Component | Value | Ref Range | Performed | Pathologist | | | | | At | Signature | + +-------+ + + + | Chloride, | 107 | | | | | External | | | | | + +-------+ + + + + + | Resulting Agency Comment | + + | [facility] | + + External Lab: Potassium (02/25/2015) + +-------+ + + + | Component | Value | Ref Range | Performed | Pathologist | | | | | At | Signature | + +-------+ + + + | Potassium, | 3.6 | | | | | External | | | | | + +-------+ + + + + + | Resulting Agency Comment | + + | [facility] | + + External Lab: Sodium (02/25/2015) + +-------+ + + + | Component | Value | Ref Range | Performed | Pathologist | | | | | At | Signature | + +-------+ + + + | Sodium, | 139 | | | | | External | | | | | + +-------+ + + + + + | Resulting Agency Comment | + + | [facility] [place] | + + External Lab: Triglycerides (02/25/2015) + +-------+ + + + | Component | Value | Ref Range | Performed | Pathologist | | | | | At | Signature | + +-------+ + + + | Triglycerid | 135 | | | | | es, | | | | | | External | | | | | + +-------+ + + + + + | Specimen | + + | Blood specimen | | (specimen) | + + + + | Resulting Agency Comment | + + | [facility] | + + External Lab: Cholesterol, HDL (02/25/2015) + + + + + + | Component | Value | Ref Range | Performed | Pathologist | | | | | At | Signature | + + + + + + | HDL | 33.8 (A) | 40 - 9,999 | | | | Cholesterol | | mg/dl | | | | , External | | | | | + + + + + + + + | Specimen | + + | Blood specimen | | (specimen) | + + + + | Resulting Agency Comment | + + | [facility] [place] | + + External Lab: Cholesterol, Total (02/25/2015) + +-------+ + + + | Component | Value | Ref Range | Performed | Pathologist | | | | | At | Signature | + +-------+ + + + | Cholesterol | 167 | mg/dl | | | | , Total, | | | | | | External | | | | | + +-------+ + + + + + | Specimen | + + | Blood specimen | | (specimen) | + + + + | Resulting Agency Comment | + + | [facility] [place] | + + External Lab: Cholesterol, LDL (02/25/2015) + +---------+ + + + | Component | Value | Ref Range | Performed | Pathologist | | | | | At | Signature | + +---------+ + + + | LDL | 106 (A) | 0 - 100 | | | | Cholesterol | | | | | | , Direct, | | | | | | External | | | | | + +---------+ + + + + + | Specimen | + + | Blood specimen | | (specimen) | + + + + | Resulting Agency Comment | + + | [facility] | + + External Lab: eGFR (02/25/2015) + +-------+ + + + | Component | Value | Ref Range | Performed | Pathologist | | | | | At | Signature | + +-------+ + + + | eGFR, | 53 | | | | | External | | | | | + +-------+ + + + + + | Specimen | + + | Blood specimen | | (specimen) | + + + + | Resulting Agency Comment | + + | [facility] [place] | + + External Lab: Creatinine (02/25/2015) + +-------+ + + + | Component | Value | Ref Range | Performed | Pathologist | | | | | At | Signature | + +-------+ + + + | Creatinine, | 1.01 | | | | | External | | | | | + +-------+ + + + + + | Specimen | + + | Blood specimen | | (specimen) | + + + + | Resulting Agency Comment | + + | [facility] [place] | + + documented in this encounter Visit Diagnoses Not on filedocumented in this encounter"
--- OUTSIDE RECORDS SUMMARY | ~2020-02-25 | XMS | Encounter Summary ---
Demographics + + + | Address | [address]. | | | [place] [address] | + + + | Home Phone | | + + + | Preferred Language | Unknown | + + + | Marital Status | | + + + | Voodoo Affiliation | Unknown | + + + [...] Team Providers + +------+ + | Care Data Processing Consultant Name | Role | Phone | [...] | | | | | | [place] [address] | [place], [place] | | | | | | Phone: | [phone] | | | | | | [phone] | Phone: | | | | | | Fax: | [phone] | | | | | | [phone] | Fax: | | | | | | | [phone] | +--------+ + + + + + Encounter Details +--------+ + + + + | Date | Type | Department | Care Team | Description | +--------+ + + + + | 11/18/ | Orders Only | [facility] | Naveed Adams MD | Neoplasm of | | 2020 | | OTOLARYNGOLOGY [address] | [address] | uncertain behavior | | | | [address] | [address] [place] | of skin (Primary Dx) | | | | [place], [place] | [address] | | | | | [address] | | | | | | [phone] | | | +--------+ + + + [...] [place] | | | | | | [address] | | | | | | | [...]
--- OUTSIDE RECORDS SUMMARY | ~2020-02-25 | XMS | Encounter Summary ---
Demographics + + + | Address | [address]. | | | [place] [address] | + + + | Home Phone | | + + + | Preferred Language | Unknown | + + + | Marital Status | | + + + | Muslim Affiliation | Unknown | + + + | Race | White | + + + | Ethnic Group | Not or | + + + Author + + + | Author | [facility] | | | and [place] | + + + | Organization | [facility] | | [...] Team Providers + +------+ + | Care Flask Pusher Name | Role | Phone | + +------+ + | Peter Phillips MD | PCP | | + +------+ + Reason for Visit + + + | Reason | Comments | + + + | Follow-up | two lesion-left eye and chin | + + + Evaluate & Treat [...] | | | | | | [address] [place] | [address] | | | | | | [place] | [address] [place] | | | | | | [address] | [place] | | | | | | Phone: | [phone] | | | | | | [phone] | Phone: | | | | | | Fax: | [phone] | | | | | | [phone] | Fax: | | | | | | | [phone] | + + + + + + + Encounter Details +--------+---------+ + + + | Date | Type | Department | Care Team | Description | +--------+---------+ + + + | 05/25/ | Office | [facility] | Naveed Adams MD | Basal cell carcinoma | | 2019 | Visit | OTOLARYNGOLOGY [address] | [address] | (BCC) of skin of | | | | [address] | [address] [place] | lip (Primary Dx) | | | | [place] | [address] | | | | | [address] | | | | | | [phone] | | | +--------+---------+ + + + [...] + + + + | Pulse | 57 | 05/25/2019 1:00 PM | | | | | PST | | + + + + + | Temperature | - | - | | + + + + + | Respiratory Rate | 16 | 05/25/2019 1:00 PM | | | | | PST | | + + + + + | Oxygen Saturation | 96% | 05/25/2019 1:00 PM | | | | | PST | | + + + + + | Inhaled Oxygen | - | - | | | Concentration | | | | + + + + + | Weight | 65.3 kg (144 lb) | 05/25/2019 1:00 PM | | | | | PST | | + + + + + | Height | 152.4 cm (5') | 05/25/2019 1:00 PM | | | | | PST | | + + + + + | Body Mass Index | 28.12 | 05/25/2019 1:00 PM | | | | | PST | | + + + + + documented in this encounter Progress Notes Naveed Adams MD - 05/25/2019 1:00 PM PSTPatient had a fairly large basal cell carcinoma removed from the right side of her nose 6 months ago. She is noticed a couple other spots t hat she would like to have evaluated. She has not noted any recurrent growth on then nasal area. He is not having any other ENT complaints. No difficulty with swallowing and no leo ge in her vocal function. Examination: Skin of the face nose and ears that were thoroughly examined. There is a smal l skin tag on the medial side of her lower eyelid on the left. When it was touched with the Q-tip about half of it came off. There is a couple of keratosis appearing areas on her chi n but at this point they do not appear to be suspicious of cancer. On the right nasal area where the basal cell was removed it is healed very nicely and it is smooth and no evidence o f recurrent cancer. In the oral cavity no mass or lesions are noted. No mass seen in the o ropharynx and posterior pharyngeal wall is smooth. Tongue and soft palate are smooth to mov e symmetrically. Neck is smooth without any mass or lymphadenopathy noted. Parotid, subman dibular and thyroid glands all feel smooth. Impression: History of basal cell carcinoma. #2 follow-up basal cell carcinoma Plan: Patient will continue to watch and see if these lesions tend to grow or start to beth t then she will recheck with ENT. 1: 09 PM PSTdocumented in this encounter Plan of [...] [place] | | | | | | [address] | | | | | | | [...]
[2020-02-25] MEDS ORDERED: NORCO 5-325 TA1 EACH PO (02:20)
== END 2020-02-25 02:46 | disposition home or self-care (01) ==
LOC: ED 01:38
DX: S46.911A Strain of unspecified muscle, fascia and tendon at shoulder and upper arm level, right arm, initial encounter (principal); Z88.0 Allergy status to penicillin; X58.XXXA Exposure to other specified factors, initial encounter
CPT/HCPCS: 73030; 99283-25

== ENCOUNTER 2022-01-14 13:16 | Emergency (ER) | payer MEDICARE, OTHER ==
[~2022-01-14] VITALS: Ht 154.9 cm; Wt 57.5 kg
[~2022-01-14 13:16] MED LIST: NORCO 5-325 TA1 EACH PO
[2022-01-14] MEDS ORDERED: METRONIDAZOLE500 MG PO (18:47)
[2022-01-14] MEDS ORDERED: CIPRO500 MG PO (18:47)
== END 2022-01-14 19:02 | disposition home or self-care (01) ==
LOC: ED 13:16
DX: K57.32 Diverticulitis of large intestine without perforation or abscess without bleeding (principal); I10 Essential (primary) hypertension; Z88.0 Allergy status to penicillin
CPT/HCPCS: 36415; 74176; 80053; 81001; 83690; 85025; 96360; 99284-25; J7030